=== PATIENT | female | born 1955 | race Caucasian/White ===

== ENCOUNTER 2017-12-10 01:50 | Inpatient (IN) | payer MEDICAID ==
[~2017-12-10] VITALS: Ht 175.3 cm; Wt 95.5 kg
[2017-12-10] MEDS ORDERED: HYDR12.58 PO (03:37)
[2017-12-10] MEDS ORDERED: PALI234D IM (03:37)
[2017-12-10] MEDS ORDERED: GABA-586 PO (03:37)
[2017-12-10] MEDS ORDERED: METF10003 PO (03:37)
[2017-12-10] MEDS ORDERED: OLAN5TAB5 PO (03:37)
[2017-12-10] MEDS ORDERED: TIMO10DR5 OU (03:37)
[2017-12-10] MEDS ORDERED: ACET325T9 PO (03:37)
[2017-12-10] MEDS ORDERED: LOPE2TAB27 PO (03:37)
[2017-12-10] MEDS ORDERED: MAGN2400 PO (03:37)
[2017-12-10] MEDS ORDERED: HALO100A2 IM (03:37)
[2017-12-10] MEDS ORDERED: MAG355OR12 PO (03:37)
[2017-12-10] MEDS ORDERED: POTA10TA10 PO (03:37)
[2017-12-10] MEDS ORDERED: ERGO500027 PO (03:37)
[2017-12-10] MEDS ORDERED: FERR325T14 PO (03:37)
[2017-12-10] MEDS ORDERED: SOLI5TAB2 PO (03:37)
[2017-12-10] MEDS ORDERED: BISM262O17 PO (03:37)
[2017-12-10] MEDS ORDERED: HYDR-2758 PO (03:37)
[2017-12-10] MEDS ORDERED: BENZ1TAB5 PO (03:38)
[2017-12-10] MEDS ORDERED: AMLO5TAB2 PO (03:38)
[2017-12-10] MEDS ORDERED: ATOR10TA60 PO (03:38)
[2017-12-10] MEDS ORDERED: SITA100T PO (03:38)
[2017-12-10 04:35] VITALS: BP 154/84
[2017-12-10] MEDS ORDERED: ACETAMINOPHEN 325 MG TABLET PO PRN ×2 (05:00→05:30)
[2017-12-10] MEDS ORDERED: METHYL SALICYLATE/MENTHOL TOPICAL OINTMENT 29GM TUBE. TP PRN (05:00)
[2017-12-10] MEDS ORDERED: MAGNESIUM HYDROXIDE 2,400 MG/30 ML ORAL.SUSP. PO PRN ×2 (05:00→05:30)
[2017-12-10] MEDS ORDERED: MAG HYDROX/AL HYDROX/SIMETH 30 ML ORAL.SUSP PO PRN ×2 (05:00→05:30)
[2017-12-10] MEDS ORDERED: BISMUTH SUBSALICYLATE 262 MG/15 ML ORAL.SUSP 236ML BOTTLE. PO PRN (05:30)
[2017-12-10] MEDS ORDERED: LOPERAMIDE 2 MG CAPSULE PO PRN (05:30)
[2017-12-10] MEDS: LINAGLIPTIN 5 MG TABLET PO SCH ×2 (06:00→06:55)
[2017-12-10] MEDS: TIMOLOL 0.5% OPHTH SOLUTION 5ML BOTTLE. OU SCH (09:00)
[2017-12-10] MEDS ORDERED: SOLIFENACIN SUCCINATE 5 MG PO SCH (09:00)
[2017-12-10] MEDS: amLODIPine BESYLATE 5 MG TABLET PO SCH ×2 (10:50→10:54)
[2017-12-10] MEDS: FERROUS SULFATE 325 MG TABLET. PO SCH ×3 (10:50→18:00)
[2017-12-10] MEDS: OXYBUTYNIN CHLORIDE 5 MG TABLET PO SCH ×3 (10:50→21:00)
[2017-12-10] MEDS: GABAPENTIN 300 MG CAPSULE. PO SCH ×2 (10:50→10:53)
[2017-12-10] MEDS: POTASSIUM CHLORIDE 10 MEQ TABLET.ER. PO SCH ×3 (10:50→17:00)
[2017-12-10] MEDS: hydroCHLOROthiazide 25 MG TABLET PO SCH ×2 (10:50→10:54)
[2017-12-10] MEDS: metFORMIN 500 MG TABLET PO SCH ×3 (10:50→17:00)
[2017-12-10] MEDS: BENZTROPINE MESYLATE 1 MG TABLET PO SCH ×2 (10:53→11:28)
[2017-12-10] MEDS: LORazepam 0.5 MG TABLET PO PRN ×3 (12:16→22:56)
[2017-12-10 15:46] LABS: BASO # 0.1 x10^3/uL (0.0-0.2); BASO % 1 % (0-3); EOS # 0.1 x10^3/uL (0.0-0.7); EOS % 1 % (0-3); HEMATOCRIT 40.1 % (36.0-47.0); HEMOGLOBIN 13.3 g/dL (12.0-15.5); LYMPH # 2.2 x10^3/uL (1.0-4.8); LYMPH % 30 % (24-48); MEAN CORPUSCULAR HEMOGLOBIN 28 pg (25-35); MEAN CORPUSCULAR HGB CONC 33 g/dL (31-37); MEAN CORPUSCULAR VOLUME 84 fL (79-100); MONO # 0.8 x10^3/uL (0.0-1.1); MONO % 12 % (0-9); NEUT % 56 % (31-73); PLATELET COUNT 270 x10^3/uL (140-400); RED BLOOD COUNT 4.77 x10^6/uL (3.50-5.40); WHITE BLOOD COUNT 7.2 x10^3/uL (4.0-11.0)
[2017-12-10 15:50] VITALS: BP 107/74
[2017-12-10 16:52] LABS: ALBUMIN 3.7 g/dL (3.4-5.0); ALBUMIN/GLOBULIN RATIO 0.9 (1.0-1.7); CALCIUM 8.9 mg/dL (8.5-10.1); CREATININE 0.8 mg/dL (0.6-1.0); GFR 72.4; MAGNESIUM 1.8 mg/dL (1.8-2.4); TOTAL BILIRUBIN 0.3 mg/dL (0.2-1.0); TOTAL PROTEIN 7.6 g/dL (6.4-8.2)
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
--- NOTE | 2017-12-10 20:29 | PDOC ---
Exam Note: José Miguel Note: Please also refer to the separate dictated note~for this date of service dictated separately.~Patient seen individually. Discussed the patient with Nursing staff reviewed the chart.~Reviewed interim history and current functioning. Reviewed vital signs,~Labs/ Radiology~and current medications noted below. Continue current treatment with the changes noted in the dictated addendum note Assessment: Vital Signs: Vital Signs Date Time Temp Pulse Resp B/P (MAP) Pulse Ox O2 Delivery O2 Flow Rate FiO2 12/10/17 15:50 98.2 86 22 107/74 (85) 97 Labs: Laboratory Tests Test 12/10/17 15:30 12/10/17 16:38 White Blood Count 7.2 x10^3/uL (4.0-11.0) Red Blood Count 4.77 x10^6/uL (3.50-5.40) Hemoglobin 13.3 g/dL (12.0-15.5) Hematocrit 40.1 % (36.0-47.0) Mean Corpuscular Volume 84 fL (79-100) Mean Corpuscular Hemoglobin 28 pg (25-35) Mean Corpuscular Hemoglobin Concent 33 g/dL (31-37) Red Cell Distribution Width 15.0 % (11.5-14.5) H Platelet Count 270 x10^3/uL (140-400) Neutrophils (%) (Auto) 56 % (31-73) Lymphocytes (%) (Auto) 30 % (24-48) Monocytes (%) (Auto) 12 % (0-9) H Eosinophils (%) (Auto) 1 % (0-3) Basophils (%) (Auto) 1 % (0-3) Neutrophils # (Auto) 4.0 x10^3uL (1.8-7.7) Lymphocytes # (Auto) 2.2 x10^3/uL (1.0-4.8) Monocytes # (Auto) 0.8 x10^3/uL (0.0-1.1) Eosinophils # (Auto) 0.1 x10^3/uL (0.0-0.7) Basophils # (Auto) 0.1 x10^3/uL (0.0-0.2) Sodium Level 143 mmol/L (136-145) Potassium Level 4.0 mmol/L (3.5-5.1) Chloride Level 107 mmol/L (98-107) Carbon Dioxide Level 26 mmol/L (21-32) Anion Gap 10 (6-14) Blood Urea Nitrogen 16 mg/dL (7-20) Creatinine 0.8 mg/dL (0.6-1.0) Estimated GFR (Cockcroft-Gault) 72.4 BUN/Creatinine Ratio 20 (6-20) Glucose Level 97 mg/dL (70-99) Calcium Level 8.9 mg/dL (8.5-10.1) Magnesium Level 1.8 mg/dL (1.8-2.4) Total Bilirubin 0.3 mg/dL (0.2-1.0) Aspartate Amino Transferase (AST) 12 U/L (15-37) L Alanine Aminotransferase (ALT) 21 U/L (14-59) Alkaline Phosphatase 66 U/L (46-116) Total Protein 7.6 g/dL (6.4-8.2) Albumin 3.7 g/dL (3.4-5.0) Albumin/Globulin Ratio 0.9 (1.0-1.7) L Glucose (Fingerstick) 105 mg/dL (70-99) H Current Medications: Meds: Current Medications Acetaminophen (Tylenol) 650 mg PRN Q6HRS PRN PO PAIN / TEMP; Start 12/10/17 at 05:00 Multi-Ingredient Ointment (Analgesic [place]) 1 van PRN QID PRN TP MUSCLE PAIN; Start 12/10/17 at 05:00 Al Hydroxide/Mg Hydroxide (Mylanta Plus Xs) 15 ml PRN AFTMEALHC PRN PO DYSPEPSIA; Start 12/10/17 at 05:00 Magnesium Hydroxide (Milk Of Magnesia) 2,400 mg PRN QHS PRN PO CONSTIPATION; Start 12/10/17 at 05:00 Acetaminophen (Tylenol) 650 mg PRN Q4HRS PRN PO PAIN / TEMP; Start 12/10/17 at 05:30 Amlodipine Besylate (Norvasc) 5 mg DAILY PO ; Start 12/10/17 at 09:00 Atorvastatin Calcium (Lipitor) 10 mg QHS PO ; Start 12/10/17 at 21:00 Bismuth Subsalicylate (Pepto-Bismol) 262 mg PRN Q4HRS PRN PO DYSPEPSIA; Start 12/10/17 at 05:30 Ferrous Sulfate (Feosol) 325 mg BIDAFTMEAL PO ; Start 12/10/17 at 09:00 Gabapentin (Neurontin) 300 mg DAILY PO ; Start 12/10/17 at 09:00 Acetaminophen/ Hydrocodone Bitart (Lortab 5/325) 1 tab TID PRN PO PAIN; Start 12/10/17 at 05:30 Al Hydroxide/Mg Hydroxide (Mylanta Plus Xs) 30 ml PRN Q4HRS PRN PO DYSPEPSIA; Start 12/10/17 at 05:30 Timolol Maleate (Timoptic 0.5% Ophth) 1 drop DAILY OU ; Start 12/10/17 at 09:00 Vitamin D (Vitamin D3) 50,000 unit WEEKLY PO ; Start 12/12/17 at 09:00 Hydrochlorothiazide (Hydrodiuril) 25 mg DAILY PO ; Start 12/10/17 at 09:00 Loperamide HCl (Imodium) 2 mg PRN Q2HR PRN PO DIARRHEA; Start 12/10/17 at 05:30 Magnesium Hydroxide (Milk Of Magnesia) 2,400 mg PRN DAILY PRN PO CONSTIPATION; Start 12/10/17 at 05:30 Metformin HCl (Glucophage) 1,000 mg BIDWMEALS PO ; Start 12/10/17 at 08:00 Potassium Chloride (Klor-Con) 10 meq BIDWMEALS PO ; Start 12/10/17 at 08:00 Linagliptin (Tradjenta) 5 mg DAILY06 PO ; Start 12/10/17 at 06:00 Non-Formulary Medication (Solifenacin Succinate (Vesicare)) 5 mg DAILY PO ; Start 12/10/17 at 09:00; Stop 12/10/17 at 09:00; Status DC Oxybutynin Chloride (Ditropan) 5 mg BID PO ; Start 12/10/17 at 09:00 Benztropine Mesylate (Cogentin) 1 mg DAILY PO ; Start 12/10/17 at 11:00 Olanzapine (ZyPREXA ZYDIS) 2.5 mg PRN Q2HR PRN PO PSYCHOSIS Last administered on 12/10/17at 11:04; Start 12/10/17 at 10:45; Stop 12/10/17 at 11:26; Status DC Olanzapine (ZyPREXA ZYDIS) 5 mg PRN Q2HR PRN PO PSYCHOSIS Last administered on 12/10/17at 15:30; Start 12/10/17 at 11:30 Lorazepam (Ativan) 0.5 mg PRN Q2HR PRN PO ANXIETY / AGITATION Last administered on 12/10/17at 16:56; Start 12/10/17 at 11:30 Valproic Acid (Depakene) 500 mg QHS PO ; Start 12/10/17 at 21:00 Active Scripts Active Reported Benztropine Mesylate 1 Mg Tablet 1 Mg PO DAILY Atorvastatin Calcium 10 Mg Tablet 10 Mg PO QHS Amlodipine Besylate 5 Mg Tablet 5 Mg PO DAILY Januvia (Sitagliptin Phosphate) 100 Mg Tablet 100 Mg PO DAILY06 Potassium Chloride 10 Meq Tablet.er 10 Meq PO BID Metformin Hcl 1,000 Mg Tablet 1,000 Mg PO BID Hydrocodone-Apap 5-325 (Hydrocodone Bit/Acetaminophen) 1 Each Tablet 1 Tab PO TID PRN Hydrochlorothiazide Tablet (Hydrochlorothiazide) 12.5 Mg Tablet 25 Mg PO DAILY Gabapentin 300 Mg Capsule 300 Mg PO DAILY Ferrous Sulfate 325 Mg Tablet 325 Mg PO BID Vitamin D2 (Ergocalciferol (Vitamin D2)) 50,000 Unit Capsule 50,000 Unit PO QFR Vesicare (Solifenacin Succinate) 5 Mg Tablet 5 Mg PO DAILY Timoptic (Timolol Maleate) 10 Ml Drops 1 Ml OU DAILY Milk Of Magnesia (Magnesium Hydroxide) 2,400 Mg/10 Ml Oral.susp 2,400 Mg PO PRN DAILY PRN Maalox Maximum Strength Susp (Mag Hydrox/Al Hydrox/Simeth) 355 Ml Oral.susp 30 Ml PO PRN Q4HRS PRN Loperamide (Loperamide Hcl) 2 Mg Tablet 2 Mg PO PRN Q2HR PRN Bismatrol (Bismuth Subsalicylate) 262 Mg/15 Ml Oral.susp 262 Mg PO PRN Q4HRS PRN Tylenol (Acetaminophen) 325 Mg Tablet 650 Mg PO PRN Q4HRS PRN Zyprexa Zydis (Olanzapine) 5 Mg Tab.rapdis 2.5 Mg PO PRN Q2HR PRN Haldol Decanoate 100 (Haloperidol Decanoate) 100 Mg/1 Ml Ampul 50 Mg IM [id number] Invega Sustenna (Paliperidone Palmitate) 234 Mg/1.5 Ml Disp.syrin 234 Mg IM QMONTH I have reviewed the current psychotropics carefully including drug interactions. Risk benefit ratio favors no change other than as noted in my dictated progress note. Diagnosis: Problems: (1) Anxiety disorder (2) Bipolar affective, mixed, sev w/ psych (3) Dementia in Alzheimer's disease with delusions (4) Dementia in Alzheimer's disease with depression (5) Dementia, vascular, with delusions (6) Impulse control disorder (7) Schizoaffective disorder, chronic condition with acute exacerbation (8) Schizoaffective disorder DOMENIC BRUNSON MD Dec 10, 2017 20:29
[2017-12-10] MEDS: ATORVASTATIN CALCIUM 10 MG TABLET. PO SCH (21:00)
[2017-12-10] MEDS ORDERED: VALPROIC ACID 250 MG CAPSULE. PO SCH (21:00)
[2017-12-10] MEDS: HYDROcodone/APAP 5/325MG 1 TAB TABLET PO PRN (22:57)
[2017-12-11] MEDS: LORazepam 0.5 MG TABLET PO PRN ×2 (03:03→20:14)
[2017-12-11] MEDS: LORazepam 2 MG/ML VIAL IM SCH ×2 (03:15→14:44)
[2017-12-11] MEDS: HALOPERIDOL LACT 5 MG/ML VIAL. IM SCH ×2 (03:30→14:44)
[2017-12-11 04:11] LABS: HEMOGLOBIN A1C 6.3 % (4.8-5.6)
[2017-12-11 05:09] LABS: T3 TOTAL 90 ng/dL (71-180)
[2017-12-11] MEDS: LINAGLIPTIN 5 MG TABLET PO SCH (05:16)
[2017-12-11 06:20] VITALS: BP 155/87
[2017-12-11] MEDS: metFORMIN 500 MG TABLET PO SCH ×2 (10:56→17:20)
[2017-12-11] MEDS: amLODIPine BESYLATE 5 MG TABLET PO SCH (10:56)
[2017-12-11] MEDS: POTASSIUM CHLORIDE 10 MEQ TABLET.ER. PO SCH ×2 (10:56→17:20)
[2017-12-11] MEDS: BENZTROPINE MESYLATE 1 MG TABLET PO SCH (10:56)
[2017-12-11] MEDS: GABAPENTIN 300 MG CAPSULE. PO SCH (10:56)
[2017-12-11] MEDS: FERROUS SULFATE 325 MG TABLET. PO SCH ×2 (10:56→17:20)
[2017-12-11] MEDS: hydroCHLOROthiazide 25 MG TABLET PO SCH (10:57)
[2017-12-11] MEDS: TIMOLOL 0.5% OPHTH SOLUTION 5ML BOTTLE. OU SCH (10:58)
[2017-12-11] MEDS: OXYBUTYNIN CHLORIDE 5 MG TABLET PO SCH ×4 (10:58→21:39)
[2017-12-11 11:57] LABS: BACTERIA,URINE FEW /HPF (0-FEW); BILIRUBIN,URINE NEG (NEG); CLARITY,URINE CLOUDY; COLOR,URINE YELLOW; GLUCOSE,URINE NEG (NEG); NITRITE,URINE NEG (NEG); RBC,URINE 0 /HPF (0-2); SQUAMOUS EPITHELIAL CELL,UR OCC /LPF; UROBILINOGEN,URINE 0.2 mg/dL (0.2 mg/dL); WBC,URINE >40 /HPF (0-4)
[2017-12-11 11:58] LABS: HYALINE CASTS, URINE FEW /HPF
[2017-12-11 14:40] LABS: THYROID STIM HORMONE (TSH) 1.214 uIU/mL (0.358-3.740)
[2017-12-11 16:26] VITALS: BP 87/57
[2017-12-11] MEDS: ATORVASTATIN CALCIUM 10 MG TABLET. PO SCH ×3 (19:41→21:39)
[2017-12-11] MEDS: VALPROATE ACID 250 MG/5 ML ORAL SOLUTION PO SCH ×2 (19:42→21:25)
--- NOTE | 2017-12-11 21:13 | PDOC ---
Exam Note: José Miguel Note: Please also refer to the separate dictated note~for this date of service dictated separately.~Patient seen individually. Discussed the patient with Nursing staff reviewed the chart.~Reviewed interim history and current functioning. Reviewed vital signs,~Labs/ Radiology~and current medications noted below. Continue current treatment with the changes noted in the dictated addendum note Assessment: Vital Signs: Vital Signs Date Time Temp Pulse Resp B/P (MAP) Pulse Ox O2 Delivery O2 Flow Rate FiO2 12/11/17 16:26 97.1 100 16 87/57 (67) 91 12/10/17 22:57 Room Air I&O Intake and Output 12/11/17 07:00 Intake Total 1900 ml Balance 1900 ml Intake Oral 1900 ml # Voids 3 # Bowel Movements 1 Labs: Laboratory Tests Test 12/11/17 07:07 12/11/17 11:30 Glucose (Fingerstick) 147 mg/dL (70-99) H Urine Collection Type Unknown Urine Color Yellow Urine Clarity Cloudy Urine pH 5.0 Urine Specific [place] 1.025 Urine Protein 30 mg/dl (NEG-TRACE) Urine Glucose (UA) Neg mg/dL (NEG) Urine Ketones (Stick) 15 mg/dL (NEG) Urine Blood Neg (NEG) Urine Nitrite Neg (NEG) Urine Bilirubin Neg (NEG) Urine Urobilinogen Dipstick 0.2 mg/dL (0.2 mg/dL) Urine Leukocyte Esterase Small (NEG) Urine RBC 0 /HPF (0-2) Urine WBC >40 /HPF (0-4) Urine Squamous Epithelial Cells Occ /LPF Urine Transitional Epithelial Cells Occ /LPF Urine Bacteria Few /HPF (0-FEW) Urine Hyaline Casts Few /HPF Urine Mucus Mod /LPF Current Medications: Meds: Current Medications Acetaminophen (Tylenol) 650 mg PRN Q6HRS PRN PO PAIN / TEMP; Start 12/10/17 at 05:00; Stop 12/11/17 at 16:16; Status DC Multi-Ingredient Ointment (Analgesic [place]) 1 van PRN QID PRN TP MUSCLE PAIN; Start 12/10/17 at 05:00 Al Hydroxide/Mg Hydroxide (Mylanta Plus Xs) 15 ml PRN AFTMEALHC PRN PO DYSPEPSIA; Start 12/10/17 at 05:00; Stop 4/26/18 at 16:16; Status DC Magnesium Hydroxide (Milk Of Magnesia) 2,400 mg PRN QHS PRN PO CONSTIPATION; Start 12/10/17 at 05:00; Stop 12/11/17 at 16:16; Status DC Acetaminophen (Tylenol) 650 mg PRN Q4HRS PRN PO PAIN / TEMP; Start 12/10/17 at 05:30 Amlodipine Besylate (Norvasc) 5 mg DAILY PO Last administered on 12/11/17 10: 56; Start 12/10/17 at 09:00 Atorvastatin Calcium (Lipitor) 10 mg QHS PO Last administered on 12/11/17at 19: 41; Start 12/10/17 at 21:00 Bismuth Subsalicylate (Pepto-Bismol) 262 mg PRN Q4HRS PRN PO DYSPEPSIA; Start 12/10/17 at 05:30 Ferrous Sulfate (Feosol) 325 mg BIDAFTMEAL PO Last administered on 12/11/17 17 :20; Start 12/10/17 at 09:00 Gabapentin (Neurontin) 300 mg DAILY PO Last administered on 12/11/17 10:56; Start 12/10/17 at 09:00 Acetaminophen/ Hydrocodone Bitart (Lortab 5/325) 1 tab TID PRN PO PAIN Last administered on 12/10/17 22:57; Start 12/10/17 at 05:30 Al Hydroxide/Mg Hydroxide (Mylanta Plus Xs) 30 ml PRN Q4HRS PRN PO DYSPEPSIA; Start 12/10/17 at 05:30 Timolol Maleate (Timoptic 0.5% [facility]) 1 drop DAILY OU Last administered on 12/11at 10:58; Start 12/10/17 at 09:00 Vitamin D (Vitamin D3) 50,000 unit WEEKLY PO ; Start 12/12/17 at 09:00 Hydrochlorothiazide (Hydrodiuril) 25 mg DAILY PO Last administered on at 10:57; Start 12/10/17 at 09:00 Loperamide HCl (Imodium) 2 mg PRN Q2HR PRN PO DIARRHEA; Start 12/10/17 at 05:30 Magnesium Hydroxide (Milk Of Magnesia) 2,400 mg PRN DAILY PRN PO CONSTIPATION; Start 12/10/17 at 05:30 Metformin HCl (Glucophage) 1,000 mg BIDWMEALS PO Last administered on 17:20; Start 12/10/17 at 08:00 Potassium Chloride (Klor-Con) 10 meq BIDWMEALS PO Last administered on at 17:20; Start 12/10/17 at 08:00 Linagliptin (Tradjenta) 5 mg DAILY06 PO Last administered on 12/11/17 05:16; Start 12/10/17 at 06:00 Non-Formulary Medication (Solifenacin Succinate (Vesicare)) 5 mg DAILY PO ; Start 12/10/17 at 09:00; Stop 12/10/17 at 09:00; Status DC Oxybutynin Chloride (Ditropan) 5 mg BID PO Last administered on 12/11/17at 19:41 ; Start 12/10/17 at 09:00 Benztropine Mesylate (Cogentin) 1 mg DAILY PO Last administered on 12/11/17at 10 :56; Start 12/10/17 at 11:00 Olanzapine (ZyPREXA ZYDIS) 2.5 mg PRN Q2HR PRN PO PSYCHOSIS Last administered on 12/10/17 11:04; Start 12/10/17 at 10:45; Stop 12/10/17 at 11:26; Status DC Olanzapine (ZyPREXA ZYDIS) 5 mg PRN Q2HR PRN PO PSYCHOSIS Last administered on 12/11/17at 20:14; Start 12/10/17 at 11:30 Lorazepam (Ativan) 0.5 mg PRN Q2HR PRN PO ANXIETY / AGITATION Last administered on 12/11/17at 20:14; Start 12/10/17 at 11:30 Valproic Acid (Depakene) 500 mg QHS PO ; Start 12/10/17 at 21:00; Stop 12/11/17 at 18:46; Status DC Haloperidol Lactate (Haldol) 5 mg DAILY IM Last administered on 12/11/17at 14:44 ; Start 12/11/17 at 03:15 Lorazepam (Ativan) 1 mg DAILY IM Last administered on 12/11/17at 14:44; Start at 03:15 Valproic Acid (Depakene) 500 mg QHS PO Last administered on 4/26/18at 19:42; Start 12/11/17 at 21:00 Active Scripts Active Reported Benztropine Mesylate 1 Mg Tablet 1 Mg PO DAILY Atorvastatin Calcium 10 Mg Tablet 10 Mg PO QHS Amlodipine Besylate 5 Mg Tablet 5 Mg PO DAILY Januvia (Sitagliptin Phosphate) 100 Mg Tablet 100 Mg PO DAILY06 Potassium Chloride 10 Meq Tablet.er 10 Meq PO BID Metformin Hcl 1,000 Mg Tablet 1,000 Mg PO BID Hydrocodone-Apap 5-325 (Hydrocodone Bit/Acetaminophen) 1 Each Tablet 1 Tab PO TID PRN Hydrochlorothiazide Tablet (Hydrochlorothiazide) 12.5 Mg Tablet 25 Mg PO DAILY Gabapentin 300 Mg Capsule 300 Mg PO DAILY Ferrous Sulfate 325 Mg Tablet 325 Mg PO BID Vitamin D2 (Ergocalciferol (Vitamin D2)) 50,000 Unit Capsule 50,000 Unit PO QFR Vesicare (Solifenacin Succinate) 5 Mg Tablet 5 Mg PO DAILY Timoptic (Timolol Maleate) 10 Ml Drops 1 Ml OU DAILY Milk Of Magnesia (Magnesium Hydroxide) 2,400 Mg/10 Ml Oral.susp 2,400 Mg PO PRN DAILY PRN Maalox Maximum Strength Susp (Mag Hydrox/Al Hydrox/Simeth) 355 Ml Oral.susp 30 Ml PO PRN Q4HRS PRN Loperamide (Loperamide Hcl) 2 Mg Tablet 2 Mg PO PRN Q2HR PRN Bismatrol (Bismuth Subsalicylate) 262 Mg/15 Ml Oral.susp 262 Mg PO PRN Q4HRS PRN Tylenol (Acetaminophen) 325 Mg Tablet 650 Mg PO PRN Q4HRS PRN Zyprexa Zydis (Olanzapine) 5 Mg Tab.rapdis 2.5 Mg PO PRN Q2HR PRN Haldol Decanoate 100 (Haloperidol Decanoate) 100 Mg/1 Ml Ampul 50 Mg IM [id number] Invega Sustenna (Paliperidone Palmitate) 234 Mg/1.5 Ml Disp.syrin 234 Mg IM QMONTH I have reviewed the current psychotropics carefully including drug interactions. Risk benefit ratio favors no change other than as noted in my dictated progress note. Diagnosis: Problems: (1) Anxiety disorder (2) Bipolar affective, mixed, sev w/ psych (3) Dementia in Alzheimer's disease with delusions (4) Dementia in Alzheimer's disease with depression (5) Dementia, vascular, with delusions (6) Impulse control disorder (7) Schizoaffective disorder, chronic condition with acute exacerbation (8) Schizoaffective disorder DOMENIC BRUNSON MD Dec 11, 2017 21:13
[2017-12-12] MEDS: LINAGLIPTIN 5 MG TABLET PO SCH (06:12)
[2017-12-12] MEDS: TIMOLOL 0.5% OPHTH SOLUTION 5ML BOTTLE. OU SCH (09:00)
[2017-12-12] MEDS: amLODIPine BESYLATE 5 MG TABLET PO SCH ×2 (09:00→10:12)
[2017-12-12] MEDS: GABAPENTIN 300 MG CAPSULE. PO SCH (10:12)
[2017-12-12] MEDS: metFORMIN 500 MG TABLET PO SCH ×2 (10:13→18:13)
[2017-12-12] MEDS: BENZTROPINE MESYLATE 1 MG TABLET PO SCH (10:13)
[2017-12-12] MEDS: hydroCHLOROthiazide 25 MG TABLET PO SCH (10:13)
[2017-12-12] MEDS: POTASSIUM CHLORIDE 10 MEQ TABLET.ER. PO SCH ×2 (10:13→18:14)
[2017-12-12] MEDS: OXYBUTYNIN CHLORIDE 5 MG TABLET PO SCH ×2 (10:13→19:15)
[2017-12-12] MEDS: FERROUS SULFATE 325 MG TABLET. PO SCH ×2 (10:13→18:15)
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
[2017-12-12 16:29] VITALS: BP 150/58
[2017-12-12] MEDS: LORazepam 2 MG/ML VIAL IM SCH ×2 (18:00→21:12)
[2017-12-12] MEDS: HALOPERIDOL LACT 5 MG/ML VIAL. IM SCH ×2 (18:00→19:42)
[2017-12-12] MEDS: CHOLECALCIFEROL (VITAMIN D3) 50,000 UNIT CAPSULE PO SCH (18:14)
[2017-12-12] MEDS: ATORVASTATIN CALCIUM 10 MG TABLET. PO SCH (19:15)
[2017-12-12] MEDS: VALPROATE ACID 250 MG/5 ML ORAL SOLUTION PO SCH (19:15)
[2017-12-12] MEDS ORDERED: traZODone 100 MG TABLET. PO PRN (20:00)
[2017-12-12] MEDS: traZODone 100 MG TABLET. PO SCH (20:36)
--- NOTE | 2017-12-12 23:00 | PDOC ---
Exam Note: José Miguel Note: Please also refer to the separate dictated note~for this date of service dictated separately.~Patient seen individually. Discussed the patient with Nursing staff reviewed the chart.~Reviewed interim history and current functioning. Reviewed vital signs,~Labs/ Radiology~and current medications noted below. Continue current treatment with the changes noted in the dictated addendum note Assessment: Vital Signs: Vital Signs Date Time Temp Pulse Resp B/P (MAP) Pulse Ox O2 Delivery O2 Flow Rate FiO2 12/12/17 16:29 97.8 106 18 150/58 (88) 91 12/10/17 22:57 Room Air I&O Intake and Output 12/12/17 07:00 Intake Total 720 ml Balance 720 ml Intake Oral 720 ml # Bowel Movements 1 Labs: Laboratory Tests Test 12/12/17 07:46 Glucose (Fingerstick) 125 mg/dL (70-99) H Current Medications: Meds: Current Medications Acetaminophen (Tylenol) 650 mg PRN Q6HRS PRN PO PAIN / TEMP; Start 12/10/17 at 05:00; Stop 12/11/17 at 16:16; Status DC Multi-Ingredient Ointment (Analgesic [place]) 1 van PRN QID PRN TP MUSCLE PAIN; Start 12/10/17 at 05:00 Al Hydroxide/Mg Hydroxide (Mylanta Plus Xs) 15 ml PRN AFTMEALHC PRN PO DYSPEPSIA; Start 12/10/17 at 05:00; Stop 12/11/17 at 16:16; Status DC Magnesium Hydroxide (Milk Of Magnesia) 2,400 mg PRN QHS PRN PO CONSTIPATION; Start 12/10/17 at 05:00; Stop 12/11/17 at 16:16; Status DC Acetaminophen (Tylenol) 650 mg PRN Q4HRS PRN PO PAIN / TEMP; Start 12/10/17 at 05:30 Amlodipine Besylate (Norvasc) 5 mg DAILY PO Last administered on 12/11/17at 10: 56; Start 12/10/17 at 09:00 Atorvastatin Calcium (Lipitor) 10 mg QHS PO Last administered on 12/12/17at 19: 15; Start 12/10/17 at 21:00 Bismuth Subsalicylate (Pepto-Bismol) 262 mg PRN Q4HRS PRN PO DYSPEPSIA; Start 12/10/17 at 05:30 Ferrous Sulfate (Feosol) 325 mg BIDAFTMEAL PO Last administered on 12/12/17 18 :15; Start 12/10/17 at 09:00 Gabapentin (Neurontin) 300 mg DAILY PO Last administered on 12/12/17 10:12; Start 12/10/17 at 09:00 Acetaminophen/ Hydrocodone Bitart (Lortab 5/325) 1 tab TID PRN PO PAIN Last administered on 12/10/17 22:57; Start 12/10/17 at 05:30 Al Hydroxide/Mg Hydroxide (Mylanta Plus Xs) 30 ml PRN Q4HRS PRN PO DYSPEPSIA; Start 12/10/17 at 05:30 Timolol Maleate (Timoptic 0.5% [facility]) 1 drop DAILY OU Last administered on 12/11 10:58; Start 12/10/17 at 09:00 Vitamin D (Vitamin D3) 50,000 unit WEEKLY PO Last administered on 12/12/17 18: 14; Start 12/12/17 at 09:00 Hydrochlorothiazide (Hydrodiuril) 25 mg DAILY PO Last administered on 10:13; Start 12/10/17 at 09:00 Loperamide HCl (Imodium) 2 mg PRN Q2HR PRN PO DIARRHEA; Start 12/10/17 at 05:30 Magnesium Hydroxide (Milk Of Magnesia) 2,400 mg PRN DAILY PRN PO CONSTIPATION; Start 12/10/17 at 05:30 Metformin HCl (Glucophage) 1,000 mg BIDWMEALS PO Last administered on 18:13; Start 12/10/17 at 08:00 Potassium Chloride (Klor-Con) 10 meq BIDWMEALS PO Last administered on 18:14; Start 12/10/17 at 08:00 Linagliptin (Tradjenta) 5 mg DAILY06 PO Last administered on 12/12/17 06:12; Start 12/10/17 at 06:00 Non-Formulary Medication (Solifenacin Succinate (Vesicare)) 5 mg DAILY PO ; Start 12/10/17 at 09:00; Stop 12/10/17 at 09:00; Status DC Oxybutynin Chloride (Ditropan) 5 mg BID PO Last administered on 12/12/17 19:15 ; Start 12/10/17 at 09:00 Benztropine Mesylate (Cogentin) 1 mg DAILY PO Last administered on 12/12/17 10 :13; Start 12/10/17 at 11:00 Olanzapine (ZyPREXA ZYDIS) 2.5 mg PRN Q2HR PRN PO PSYCHOSIS Last administered on 12/10/17 11:04; Start 12/10/17 at 10:45; Stop 12/10/17 at 11:26; Status DC Olanzapine (ZyPREXA ZYDIS) 5 mg PRN Q2HR PRN PO PSYCHOSIS Last administered on 12/11/17 20:14; Start 12/10/17 at 11:30 Lorazepam (Ativan) 0.5 mg PRN Q2HR PRN PO ANXIETY / AGITATION Last administered on 12/11/17at 20:14; Start 12/10/17 at 11:30 Valproic Acid (Depakene) 500 mg QHS PO ; Start 12/10/17 at 21:00; Stop 12/11/17 at 18:46; Status DC Haloperidol Lactate (Haldol) 5 mg DAILY IM Last administered on 12/12/17at 19:42 ; Start 12/11/17 at 03:15 Lorazepam (Ativan) 1 mg DAILY IM Last administered on 12/12/17 21:12; Start at 03:15 Valproic Acid (Depakene) 500 mg QHS PO Last administered on 12/12/17 19:15; Start 12/11/17 at 21:00 Trazodone HCl (Desyrel) 100 mg QHS PO Last administered on 12/12/17at 20:36; Start 12/12/17 at 21:00 Trazodone HCl (Desyrel) 100 mg PRN QHS PRN PO INSOMNIA; Start 12/12/17 at 20:00 Active Scripts Active Reported Benztropine Mesylate 1 Mg Tablet 1 Mg PO DAILY Atorvastatin Calcium 10 Mg Tablet 10 Mg PO QHS Amlodipine Besylate 5 Mg Tablet 5 Mg PO DAILY Januvia (Sitagliptin Phosphate) 100 Mg Tablet 100 Mg PO DAILY06 Potassium Chloride 10 Meq Tablet.er 10 Meq PO BID Metformin Hcl 1,000 Mg Tablet 1,000 Mg PO BID Hydrocodone-Apap 5-325 (Hydrocodone Bit/Acetaminophen) 1 Each Tablet 1 Tab PO TID PRN Hydrochlorothiazide Tablet (Hydrochlorothiazide) 12.5 Mg Tablet 25 Mg PO DAILY Gabapentin 300 Mg Capsule 300 Mg PO DAILY Ferrous Sulfate 325 Mg Tablet 325 Mg PO BID Vitamin D2 (Ergocalciferol (Vitamin D2)) 50,000 Unit Capsule 50,000 Unit PO QFR Vesicare (Solifenacin Succinate) 5 Mg Tablet 5 Mg PO DAILY Timoptic (Timolol Maleate) 10 Ml Drops 1 Ml OU DAILY Milk Of Magnesia (Magnesium Hydroxide) 2,400 Mg/10 Ml Oral.susp 2,400 Mg PO PRN DAILY PRN Maalox Maximum Strength Susp (Mag Hydrox/Al Hydrox/Simeth) 355 Ml Oral.susp 30 Ml PO PRN Q4HRS PRN Loperamide (Loperamide Hcl) 2 Mg Tablet 2 Mg PO PRN Q2HR PRN Bismatrol (Bismuth Subsalicylate) 262 Mg/15 Ml Oral.susp 262 Mg PO PRN Q4HRS PRN Tylenol (Acetaminophen) 325 Mg Tablet 650 Mg PO PRN Q4HRS PRN Zyprexa Zydis (Olanzapine) 5 Mg Tab.rapdis 2.5 Mg PO PRN Q2HR PRN Haldol Decanoate 100 (Haloperidol Decanoate) 100 Mg/1 Ml Ampul 50 Mg IM [id number] Invega Sustenna (Paliperidone Palmitate) 234 Mg/1.5 Ml Disp.syrin 234 Mg IM QMONTH I have reviewed the current psychotropics carefully including drug interactions. Risk benefit ratio favors no change other than as noted in my dictated progress note. Diagnosis: Problems: (1) Anxiety disorder (2) Bipolar affective, mixed, sev w/ psych (3) Dementia in Alzheimer's disease with delusions (4) Dementia in Alzheimer's disease with depression (5) Dementia, vascular, with delusions (6) Impulse control disorder (7) Schizoaffective disorder, chronic condition with acute exacerbation (8) Schizoaffective disorder DOMENIC BRUNSON MD Dec 12, 2017 23:00
[2017-12-13 06:35] VITALS: BP 121/69
[2017-12-13] MEDS: LINAGLIPTIN 5 MG TABLET PO SCH (06:44)
[2017-12-13] MEDS: TIMOLOL 0.5% OPHTH SOLUTION 5ML BOTTLE. OU SCH (09:00)
[2017-12-13] MEDS: GABAPENTIN 300 MG CAPSULE. PO SCH (10:10)
[2017-12-13] MEDS: FERROUS SULFATE 325 MG TABLET. PO SCH ×2 (10:10→17:39)
[2017-12-13] MEDS: OXYBUTYNIN CHLORIDE 5 MG TABLET PO SCH ×2 (10:11→20:48)
[2017-12-13] MEDS: metFORMIN 500 MG TABLET PO SCH ×2 (10:11→17:00)
[2017-12-13] MEDS: POTASSIUM CHLORIDE 10 MEQ TABLET.ER. PO SCH ×2 (10:11→17:00)
[2017-12-13] MEDS: BENZTROPINE MESYLATE 1 MG TABLET PO SCH (10:11)
[2017-12-13] MEDS: hydroCHLOROthiazide 25 MG TABLET PO SCH (10:11)
[2017-12-13] MEDS: amLODIPine BESYLATE 5 MG TABLET PO SCH (10:11)
[2017-12-13] MEDS: HALOPERIDOL 5 MG TABLET PO SCH (10:13)
[2017-12-13 14:10] LABS: BASO # 0.1 x10^3/uL (0.0-0.2); BASO % 1 % (0-3); EOS # 0.1 x10^3/uL (0.0-0.7); EOS % 2 % (0-3); HEMATOCRIT 37.2 % (36.0-47.0); HEMOGLOBIN 12.3 g/dL (12.0-15.5); LYMPH % 33 % (24-48); MEAN CORPUSCULAR HEMOGLOBIN 28 pg (25-35); MEAN CORPUSCULAR HGB CONC 33 g/dL (31-37); MEAN CORPUSCULAR VOLUME 84 fL (79-100); MONO # 0.9 x10^3/uL (0.0-1.1); MONO % 11 % (0-9); NEUT # 4.8 x10^3uL (1.8-7.7); NEUT % 54 % (31-73); PLATELET COUNT 256 x10^3/uL (140-400); RED BLOOD COUNT 4.45 x10^6/uL (3.50-5.40); RED CELL DISTRIBUTION WIDTH 15.2 % (11.5-14.5); WHITE BLOOD COUNT 8.9 x10^3/uL (4.0-11.0)
[2017-12-13 14:25] LABS: ALBUMIN 3.6 g/dL (3.4-5.0); ALBUMIN/GLOBULIN RATIO 1.1 (1.0-1.7); ALK PHOS 74 U/L (46-116); ALT (SGPT) 23 U/L (14-59); ANION GAP 10 (6-14); AST (SGOT) 19 U/L (15-37); BLOOD UREA NITROGEN 20 mg/dL (7-20); BUN/CREATININE RATIO 22 (6-20); CARBON DIOXIDE 29 mmol/L (21-32); CHLORIDE 103 mmol/L (98-107); CREATININE 0.9 mg/dL (0.6-1.0); GFR 63.2; GLUCOSE 89 mg/dL (70-99); POTASSIUM 3.6 mmol/L (3.5-5.1); SODIUM 142 mmol/L (136-145); TOTAL BILIRUBIN 0.3 mg/dL (0.2-1.0)
[2017-12-13 14:26] LABS: VAL ACID 33 mcg/mL (50-100)
[2017-12-13] MEDS: VALPROATE ACID 250 MG/5 ML ORAL SOLUTION PO SCH ×2 (16:17→20:48)
[2017-12-13] MEDS: traZODone 100 MG TABLET. PO SCH (20:48)
[2017-12-13] MEDS: ATORVASTATIN CALCIUM 10 MG TABLET. PO SCH (20:48)
--- NOTE | 2017-12-13 21:44 | PN ---
DATE: 12/11/2017 PSYCHIATRIC PROGRESS NOTE This is a late entry for 12/11/2017, covers elements not covered in my initial note of 12/11/2017. SUBJECTIVE: The patient was staffed at a treatment team meeting in the morning, seen individually in the evening and I have got a call around 3 o'clock middle of the night previous night from nursing staff because of the patient's marked agitation, mood lability, psychosis, yelling, screaming. She is grabbing other patients, did not sleep at all at night. On 12/11/2017, she was yelling after lunch, extremely psychotic. At 3 o'clock in the morning, I have started the patient on scheduled Haldol and Ativan. This seems to help somewhat given her noncompliance with oral medications and these were ineffective. Nursing staff are making concerted efforts to get her Depakene into her as well for mood stabilization. REVIEW OF SYSTEMS: No CV, , pulmonary, eye, ENT system symptoms on review. Reliability poor. MENTAL STATUS EXAM: Oriented to herself. Insight, judgment, recent and remote memory, attention, concentration, fund of knowledge poor, consistent with her diagnoses. LABORATORY DATA: Schizoaffective disorder, bipolar type, mixed with psychotic features; psychotic disorder, unspecified; major neurocognitive disorder, Alzheimer, vascular with delusion, depression. Rest unchanged. PLAN: Continue psychotropics. Encourage compliance. Adjust Depakote post labs level. MAN Nixon BRUNSON MD DR: LACEY/mamadou JOB#: [id number] / [id number]
--- NOTE | 2017-12-13 22:31 | PDOC ---
Exam Note: José Miguel Note: Please also refer to the separate dictated note~for this date of service dictated separately.~Patient seen individually. Discussed the patient with Nursing staff reviewed the chart.~Reviewed interim history and current functioning. Reviewed vital signs,~Labs/ Radiology~and current medications noted below. Continue current treatment with the changes noted in the dictated addendum note Assessment: Vital Signs: Vital Signs Date Time Temp Pulse Resp B/P (MAP) Pulse Ox O2 Delivery O2 Flow Rate FiO2 12/13/17 10:11 88 121/69 12/13/17 06:35 98.8 20 94 12/10/17 22:57 Room Air I&O Intake and Output 12/13/17 07:00 Intake Total 600 ml Balance 600 ml Intake Oral 600 ml Labs: Laboratory Tests Test 12/13/17 14:02 White Blood Count 8.9 x10^3/uL (4.0-11.0) Red Blood Count 4.45 x10^6/uL (3.50-5.40) Hemoglobin 12.3 g/dL (12.0-15.5) Hematocrit 37.2 % (36.0-47.0) Mean Corpuscular Volume 84 fL (79-100) Mean Corpuscular Hemoglobin 28 pg (25-35) Mean Corpuscular Hemoglobin Concent 33 g/dL (31-37) Red Cell Distribution Width 15.2 % (11.5-14.5) H Platelet Count 256 x10^3/uL (140-400) Neutrophils (%) (Auto) 54 % (31-73) Lymphocytes (%) (Auto) 33 % (24-48) Monocytes (%) (Auto) 11 % (0-9) H Eosinophils (%) (Auto) 2 % (0-3) Basophils (%) (Auto) 1 % (0-3) Neutrophils # (Auto) 4.8 x10^3uL (1.8-7.7) Lymphocytes # (Auto) 3.0 x10^3/uL (1.0-4.8) Monocytes # (Auto) 0.9 x10^3/uL (0.0-1.1) Eosinophils # (Auto) 0.1 x10^3/uL (0.0-0.7) Basophils # (Auto) 0.1 x10^3/uL (0.0-0.2) Sodium Level 142 mmol/L (136-145) Potassium Level 3.6 mmol/L (3.5-5.1) Chloride Level 103 mmol/L (98-107) Carbon Dioxide Level 29 mmol/L (21-32) Anion Gap 10 (6-14) Blood Urea Nitrogen 20 mg/dL (7-20) Creatinine 0.9 mg/dL (0.6-1.0) Estimated GFR (Cockcroft-Gault) 63.2 BUN/Creatinine Ratio 22 (6-20) H Glucose Level 89 mg/dL (70-99) Calcium Level 9.0 mg/dL (8.5-10.1) Total Bilirubin 0.3 mg/dL (0.2-1.0) Aspartate Amino Transferase (AST) 19 U/L (15-37) Alanine Aminotransferase (ALT) 23 U/L (14-59) Alkaline Phosphatase 74 U/L (46-116) Total Protein 7.0 g/dL (6.4-8.2) Albumin 3.6 g/dL (3.4-5.0) Albumin/Globulin Ratio 1.1 (1.0-1.7) Valproic Acid Level 33 mcg/mL (50-100) L Valproic Acid Last Dose Date Pending Valproic Acid Last Dose Time Pending Current Medications: Meds: Current Medications Acetaminophen (Tylenol) 650 mg PRN Q6HRS PRN PO PAIN / TEMP; Start 12/10/17 at 05:00; Stop 12/11/17 at 16:16; Status DC Multi-Ingredient Ointment (Analgesic [place]) 1 van PRN QID PRN TP MUSCLE PAIN; Start 12/10/17 at 05:00 Al Hydroxide/Mg Hydroxide (Mylanta Plus Xs) 15 ml PRN AFTMEALHC PRN PO DYSPEPSIA; Start 12/10/17 at 05:00; Stop 12/11/17 at 16:16; Status DC Magnesium Hydroxide (Milk Of Magnesia) 2,400 mg PRN QHS PRN PO CONSTIPATION; Start 12/10/17 at 05:00; Stop 12/11/17 at 16:16; Status DC Acetaminophen (Tylenol) 650 mg PRN Q4HRS PRN PO PAIN / TEMP; Start 12/10/17 at 05:30 Amlodipine Besylate (Norvasc) 5 mg DAILY PO Last administered on 12/13/17 10: 11; Start 12/10/17 at 09:00 Atorvastatin Calcium (Lipitor) 10 mg QHS PO Last administered on 12/13/17 20: 48; Start 12/10/17 at 21:00 Bismuth Subsalicylate (Pepto-Bismol) 262 mg PRN Q4HRS PRN PO DYSPEPSIA; Start 12/10/17 at 05:30 Ferrous Sulfate (Feosol) 325 mg BIDAFTMEAL PO Last administered on 12/13/17 10 :10; Start 12/10/17 at 09:00 Gabapentin (Neurontin) 300 mg DAILY PO Last administered on 12/13/17 10:10; Start 12/10/17 at 09:00 Acetaminophen/ Hydrocodone Bitart (Lortab 5/325) 1 tab TID PRN PO PAIN Last administered on 12/10/17 22:57; Start 12/10/17 at 05:30 Al Hydroxide/Mg Hydroxide (Mylanta Plus Xs) 30 ml PRN Q4HRS PRN PO DYSPEPSIA; Start 12/10/17 at 05:30 Timolol Maleate (Timoptic 0.5% [facility]) 1 drop DAILY OU Last administered on 12/11 10:58; Start 12/10/17 at 09:00 Vitamin D (Vitamin D3) 50,000 unit WEEKLY PO Last administered on 12/12/17 18: 14; Start 12/12/17 at 09:00 Hydrochlorothiazide (Hydrodiuril) 25 mg DAILY PO Last administered on 10:11; Start 12/10/17 at 09:00 Loperamide HCl (Imodium) 2 mg PRN Q2HR PRN PO DIARRHEA; Start 12/10/17 at 05:30 Magnesium Hydroxide (Milk Of Magnesia) 2,400 mg PRN DAILY PRN PO CONSTIPATION; Start 12/10/17 at 05:30 Metformin HCl (Glucophage) 1,000 mg BIDWMEALS PO Last administered on 10:11; Start 12/10/17 at 08:00 Potassium Chloride (Klor-Con) 10 meq BIDWMEALS PO Last administered on 10:11; Start 12/10/17 at 08:00 Linagliptin (Tradjenta) 5 mg DAILY06 PO Last administered on 12/13/17at 06:44; Start 12/10/17 at 06:00 Non-Formulary Medication (Solifenacin Succinate (Vesicare)) 5 mg DAILY PO ; Start 12/10/17 at 09:00; Stop 12/10/17 at 09:00; Status DC Oxybutynin Chloride (Ditropan) 5 mg BID PO Last administered on 12/13/17at 20:48 ; Start 12/10/17 at 09:00 Benztropine Mesylate (Cogentin) 1 mg DAILY PO Last administered on 12/13/17 10 :11; Start 12/10/17 at 11:00 Olanzapine (ZyPREXA ZYDIS) 2.5 mg PRN Q2HR PRN PO PSYCHOSIS Last administered on 12/10/17 11:04; Start 12/10/17 at 10:45; Stop 12/10/17 at 11:26; Status DC Olanzapine (ZyPREXA ZYDIS) 5 mg PRN Q2HR PRN PO PSYCHOSIS Last administered on 12/13/17at 11:20; Start 12/10/17 at 11:30 Lorazepam (Ativan) 0.5 mg PRN Q2HR PRN PO ANXIETY / AGITATION Last administered on 12/11/17at 20:14; Start 12/10/17 at 11:30 Valproic Acid (Depakene) 500 mg QHS PO ; Start 12/10/17 at 21:00; Stop 12/11/17 at 18:46; Status DC Haloperidol Lactate (Haldol) 5 mg DAILY IM Last administered on 12/12/17at 19:42 ; Start 12/11/17 at 03:15; Stop 12/13/17 at 05:13; Status DC Lorazepam (Ativan) 1 mg DAILY IM Last administered on 12/12/17at 21:12; Start at 03:15 Valproic Acid (Depakene) 500 mg QHS PO Last administered on 12/12/17at 19:15; Start 12/11/17 at 21:00; Stop 12/13/17 at 15:44; Status DC Trazodone HCl (Desyrel) 100 mg QHS PO Last administered on 12/13/17at 20:48; Start 12/12/17 at 21:00 Trazodone HCl (Desyrel) 100 mg PRN QHS PRN PO INSOMNIA; Start 12/12/17 at 20:00 Haloperidol (Haldol) 10 mg DAILY PO Last administered on 12/13/17at 10:13; Start 12/13/17 at 09:00 Valproic Acid (Depakene) 500 mg BID PO Last administered on 12/13/17at 20:48; Start 12/13/17 at 16:00 Active Scripts Active Reported Benztropine Mesylate 1 Mg Tablet 1 Mg PO DAILY Atorvastatin Calcium 10 Mg Tablet 10 Mg PO QHS Amlodipine Besylate 5 Mg Tablet 5 Mg PO DAILY Januvia (Sitagliptin Phosphate) 100 Mg Tablet 100 Mg PO DAILY06 Potassium Chloride 10 Meq Tablet.er 10 Meq PO BID Metformin Hcl 1,000 Mg Tablet 1,000 Mg PO BID Hydrocodone-Apap 5-325 (Hydrocodone Bit/Acetaminophen) 1 Each Tablet 1 Tab PO TID PRN Hydrochlorothiazide Tablet (Hydrochlorothiazide) 12.5 Mg Tablet 25 Mg PO DAILY Gabapentin 300 Mg Capsule 300 Mg PO DAILY Ferrous Sulfate 325 Mg Tablet 325 Mg PO BID Vitamin D2 (Ergocalciferol (Vitamin D2)) 50,000 Unit Capsule 50,000 Unit PO QFR Vesicare (Solifenacin Succinate) 5 Mg Tablet 5 Mg PO DAILY Timoptic (Timolol Maleate) 10 Ml Drops 1 Ml OU DAILY Milk Of Magnesia (Magnesium Hydroxide) 2,400 Mg/10 Ml Oral.susp 2,400 Mg PO PRN DAILY PRN Maalox Maximum Strength Susp (Mag Hydrox/Al Hydrox/Simeth) 355 Ml Oral.susp 30 Ml PO PRN Q4HRS PRN Loperamide (Loperamide Hcl) 2 Mg Tablet 2 Mg PO PRN Q2HR PRN Bismatrol (Bismuth Subsalicylate) 262 Mg/15 Ml Oral.susp 262 Mg PO PRN Q4HRS PRN Tylenol (Acetaminophen) 325 Mg Tablet 650 Mg PO PRN Q4HRS PRN Zyprexa Zydis (Olanzapine) 5 Mg Tab.rapdis 2.5 Mg PO PRN Q2HR PRN Haldol Decanoate 100 (Haloperidol Decanoate) 100 Mg/1 Ml Ampul 50 Mg IM [id number] Invega Sustenna (Paliperidone Palmitate) 234 Mg/1.5 Ml Disp.syrin 234 Mg IM QMONTH I have reviewed the current psychotropics carefully including drug interactions. Risk benefit ratio favors no change other than as noted in my dictated progress note. Diagnosis: Problems: (1) Anxiety disorder (2) Bipolar affective, mixed, sev w/ psych (3) Dementia in Alzheimer's disease with delusions (4) Dementia in Alzheimer's disease with depression (5) Dementia, vascular, with delusions (6) Impulse control disorder (7) Schizoaffective disorder, chronic condition with acute exacerbation (8) Schizoaffective disorder DOMENIC BRUNSON MD Dec 13, 2017 22:31
[2017-12-14 06:24] VITALS: BP 127/75
[2017-12-14] MEDS: LINAGLIPTIN 5 MG TABLET PO SCH (06:27)
[2017-12-14] MEDS: LORazepam 2 MG/ML VIAL IM SCH (09:00)
[2017-12-14] MEDS: TIMOLOL 0.5% OPHTH SOLUTION 5ML BOTTLE. OU SCH ×2 (09:00→09:33)
[2017-12-14] MEDS: OXYBUTYNIN CHLORIDE 5 MG TABLET PO SCH ×3 (09:32→21:00)
[2017-12-14] MEDS: metFORMIN 500 MG TABLET PO SCH ×2 (09:32→16:32)
[2017-12-14] MEDS: GABAPENTIN 300 MG CAPSULE. PO SCH (09:32)
[2017-12-14] MEDS: POTASSIUM CHLORIDE 10 MEQ TABLET.ER. PO SCH ×2 (09:32→16:32)
[2017-12-14] MEDS: BENZTROPINE MESYLATE 1 MG TABLET PO SCH (09:33)
[2017-12-14] MEDS: HALOPERIDOL 5 MG TABLET PO SCH (09:33)
[2017-12-14] MEDS: amLODIPine BESYLATE 5 MG TABLET PO SCH (09:33)
[2017-12-14] MEDS: FERROUS SULFATE 325 MG TABLET. PO SCH ×2 (09:33→16:32)
[2017-12-14] MEDS: VALPROATE ACID 250 MG/5 ML ORAL SOLUTION PO SCH ×3 (09:34→21:00)
[2017-12-14] MEDS: hydroCHLOROthiazide 25 MG TABLET PO SCH (09:35)
[2017-12-14] MEDS: ATORVASTATIN CALCIUM 10 MG TABLET. PO SCH ×2 (20:06→21:00)
[2017-12-14] MEDS: traZODone 100 MG TABLET. PO SCH ×2 (20:07→21:00)
--- NOTE | 2017-12-14 22:22 | PDOC ---
Exam Note: José Miguel Note: Please also refer to the separate dictated note~for this date of service dictated separately.~Patient seen individually. Discussed the patient with Nursing staff reviewed the chart.~Reviewed interim history and current functioning. Reviewed vital signs,~Labs/ Radiology~and current medications noted below. Continue current treatment with the changes noted in the dictated addendum note Assessment: Vital Signs: Vital Signs Date Time Temp Pulse Resp B/P (MAP) Pulse Ox O2 Delivery O2 Flow Rate FiO2 12/14/17 09:33 79 127/75 12/14/17 06:24 97.4 20 97 12/10/17 22:57 Room Air I&O Intake and Output 12/14/17 07:00 Intake Total 900 ml Balance 900 ml Intake Oral 900 ml Current Medications: Meds: Current Medications Acetaminophen (Tylenol) 650 mg PRN Q6HRS PRN PO PAIN / TEMP; Start 12/10/17 at 05:00; Stop 12/11/17 at 16:16; Status DC Multi-Ingredient Ointment (Analgesic [place]) 1 van PRN QID PRN TP MUSCLE PAIN; Start 12/10/17 at 05:00 Al Hydroxide/Mg Hydroxide (Mylanta Plus Xs) 15 ml PRN AFTMEALHC PRN PO DYSPEPSIA; Start 12/10/17 at 05:00; Stop 12/11/17 at 16:16; Status DC Magnesium Hydroxide (Milk Of Magnesia) 2,400 mg PRN QHS PRN PO CONSTIPATION; Start 12/10/17 at 05:00; Stop 12/11/17 at 16:16; Status DC Acetaminophen (Tylenol) 650 mg PRN Q4HRS PRN PO PAIN / TEMP; Start 12/10/17 at 05:30 Amlodipine Besylate (Norvasc) 5 mg DAILY PO Last administered on 12/14/17at 09: 33; Start 12/10/17 at 09:00 Atorvastatin Calcium (Lipitor) 10 mg QHS PO Last administered on 12/13/17at 20: 48; Start 12/10/17 at 21:00 Bismuth Subsalicylate (Pepto-Bismol) 262 mg PRN Q4HRS PRN PO DYSPEPSIA; Start 12/10/17 at 05:30 Ferrous Sulfate (Feosol) 325 mg BIDAFTMEAL PO Last administered on 12/14/17 16 :32; Start 12/10/17 at 09:00 Gabapentin (Neurontin) 300 mg DAILY PO Last administered on 12/14/17 09:32; Start 12/10/17 at 09:00 Acetaminophen/ Hydrocodone Bitart (Lortab 5/325) 1 tab TID PRN PO PAIN Last administered on 12/10/17 22:57; Start 12/10/17 at 05:30 Al Hydroxide/Mg Hydroxide (Mylanta Plus Xs) 30 ml PRN Q4HRS PRN PO DYSPEPSIA; Start 12/10/17 at 05:30 Timolol Maleate (Timoptic 0.5% [facility]) 1 drop DAILY OU Last administered on 12/11 10:58; Start 12/10/17 at 09:00 Vitamin D (Vitamin D3) 50,000 unit WEEKLY PO Last administered on 12/12/17 18: 14; Start 12/12/17 at 09:00 Hydrochlorothiazide (Hydrodiuril) 25 mg DAILY PO Last administered on 09:35; Start 12/10/17 at 09:00 Loperamide HCl (Imodium) 2 mg PRN Q2HR PRN PO DIARRHEA; Start 12/10/17 at 05:30 Magnesium Hydroxide (Milk Of Magnesia) 2,400 mg PRN DAILY PRN PO CONSTIPATION; Start 12/10/17 at 05:30 Metformin HCl (Glucophage) 1,000 mg BIDWMEALS PO Last administered on 16:32; Start 12/10/17 at 08:00 Potassium Chloride (Klor-Con) 10 meq BIDWMEALS PO Last administered on 16:32; Start 12/10/17 at 08:00 Linagliptin (Tradjenta) 5 mg DAILY06 PO Last administered on 12/14/17 06:27; Start 12/10/17 at 06:00 Non-Formulary Medication (Solifenacin Succinate (Vesicare)) 5 mg DAILY PO ; Start 12/10/17 at 09:00; Stop 12/10/17 at 09:00; Status DC Oxybutynin Chloride (Ditropan) 5 mg BID PO Last administered on 12/14/17 09:32 ; Start 12/10/17 at 09:00 Benztropine Mesylate (Cogentin) 1 mg DAILY PO Last administered on 12/14/17 09 :33; Start 12/10/17 at 11:00 Olanzapine (ZyPREXA ZYDIS) 2.5 mg PRN Q2HR PRN PO PSYCHOSIS Last administered on 12/10/17 11:04; Start 12/10/17 at 10:45; Stop 12/10/17 at 11:26; Status DC Olanzapine (ZyPREXA ZYDIS) 5 mg PRN Q2HR PRN PO PSYCHOSIS Last administered on 12/13/17 11:20; Start 12/10/17 at 11:30 Lorazepam (Ativan) 0.5 mg PRN Q2HR PRN PO ANXIETY / AGITATION Last administered on 12/11/17 20:14; Start 12/10/17 at 11:30 Valproic Acid (Depakene) 500 mg QHS PO ; Start 12/10/17 at 21:00; Stop 12/11/17 at 18:46; Status DC Haloperidol Lactate (Haldol) 5 mg DAILY IM Last administered on 12/12/17at 19:42 ; Start 12/11/17 at 03:15; Stop 12/13/17 at 05:13; Status DC Lorazepam (Ativan) 1 mg DAILY IM Last administered on 12/12/17at 21:12; Start at 03:15; Stop 12/14/17 at 18:47; Status DC Valproic Acid (Depakene) 500 mg QHS PO Last administered on 12/12/17at 19:15; Start 12/11/17 at 21:00; Stop 12/13/17 at 15:44; Status DC Trazodone HCl (Desyrel) 100 mg QHS PO Last administered on 12/13/17at 20:48; Start 12/12/17 at 21:00 Trazodone HCl (Desyrel) 100 mg PRN QHS PRN PO INSOMNIA; Start 12/12/17 at 20:00 Haloperidol (Haldol) 10 mg DAILY PO Last administered on 12/14/17 09:33; Start 12/13/17 at 09:00 Valproic Acid (Depakene) 500 mg BID PO Last administered on 12/14/17 09:34; Start 12/13/17 at 16:00 Active Scripts Active Reported Benztropine Mesylate 1 Mg Tablet 1 Mg PO DAILY Atorvastatin Calcium 10 Mg Tablet 10 Mg PO QHS Amlodipine Besylate 5 Mg Tablet 5 Mg PO DAILY Januvia (Sitagliptin Phosphate) 100 Mg Tablet 100 Mg PO DAILY06 Potassium Chloride 10 Meq Tablet.er 10 Meq PO BID Metformin Hcl 1,000 Mg Tablet 1,000 Mg PO BID Hydrocodone-Apap 5-325 (Hydrocodone Bit/Acetaminophen) 1 Each Tablet 1 Tab PO TID PRN Hydrochlorothiazide Tablet (Hydrochlorothiazide) 12.5 Mg Tablet 25 Mg PO DAILY Gabapentin 300 Mg Capsule 300 Mg PO DAILY Ferrous Sulfate 325 Mg Tablet 325 Mg PO BID Vitamin D2 (Ergocalciferol (Vitamin D2)) 50,000 Unit Capsule 50,000 Unit PO QFR Vesicare (Solifenacin Succinate) 5 Mg Tablet 5 Mg PO DAILY Timoptic (Timolol Maleate) 10 Ml Drops 1 Ml OU DAILY Milk Of Magnesia (Magnesium Hydroxide) 2,400 Mg/10 Ml Oral.susp 2,400 Mg PO PRN DAILY PRN Maalox Maximum Strength Susp (Mag Hydrox/Al Hydrox/Simeth) 355 Ml Oral.susp 30 Ml PO PRN Q4HRS PRN Loperamide (Loperamide Hcl) 2 Mg Tablet 2 Mg PO PRN Q2HR PRN Bismatrol (Bismuth Subsalicylate) 262 Mg/15 Ml Oral.susp 262 Mg PO PRN Q4HRS PRN Tylenol (Acetaminophen) 325 Mg Tablet 650 Mg PO PRN Q4HRS PRN Zyprexa Zydis (Olanzapine) 5 Mg Tab.rapdis 2.5 Mg PO PRN Q2HR PRN Haldol Decanoate 100 (Haloperidol Decanoate) 100 Mg/1 Ml Ampul 50 Mg IM [id number] Invega Sustenna (Paliperidone Palmitate) 234 Mg/1.5 Ml Disp.syrin 234 Mg IM QMONTH I have reviewed the current psychotropics carefully including drug interactions. Risk benefit ratio favors no change other than as noted in my dictated progress note. Diagnosis: Problems: (1) Anxiety disorder (2) Bipolar affective, mixed, sev w/ psych (3) Dementia in Alzheimer's disease with delusions (4) Dementia in Alzheimer's disease with depression (5) Dementia, vascular, with delusions (6) Impulse control disorder (7) Schizoaffective disorder, chronic condition with acute exacerbation (8) Schizoaffective disorder DOMENIC BRUNSON MD Dec 14, 2017 22:22
--- NOTE | 2017-12-14 23:42 | PN ---
DATE: 12/12/2017 This is a late entry of 12/12/2017 covers elements not covered in my initial note of 12/12/2017. SUBJECTIVE: I met with the patient in the evening. She slept 3 hours, had a better day, still hyperverbal, did lie down to rest after lunch. REVIEW OF SYSTEMS: No CV, , pulmonary, eye, ENT system symptoms on review. Reliability poor. MENTAL STATUS EXAM: Oriented to herself. Insight, judgment, recent and remote memory, attention, concentration, fund of knowledge poor, consistent with her diagnosis. IMPRESSION: Schizoaffective disorder, bipolar type, mixed with psychotic features. PLAN: Change IM Haldol, Ativan to p.o. Haldol 10 mg along with Ativan p.r.n. Start trazodone 100 mg at bedtime, december repeat x 1 for insomnia. Continue rest unchanged. Encourage compliance with psychotropics. DOMENIC BRUNSON MD DR: LACEY/mamadou JOB#: [id number] / [id number]
[2017-12-15] MEDS: ATORVASTATIN CALCIUM 10 MG TABLET. PO SCH ×2 (02:30→20:09)
[2017-12-15] MEDS: OXYBUTYNIN CHLORIDE 5 MG TABLET PO SCH ×3 (02:30→20:09)
[2017-12-15] MEDS: VALPROATE ACID 250 MG/5 ML ORAL SOLUTION PO SCH ×3 (02:30→20:10)
[2017-12-15] MEDS: traZODone 100 MG TABLET. PO SCH ×2 (02:30→20:10)
[2017-12-15] MEDS: LINAGLIPTIN 5 MG TABLET PO SCH (05:19)
[2017-12-15 06:15] VITALS: BP 120/73
[2017-12-15] MEDS: TIMOLOL 0.5% OPHTH SOLUTION 5ML BOTTLE. OU SCH (10:00)
[2017-12-15] MEDS: HALOPERIDOL 5 MG TABLET PO SCH (10:34)
[2017-12-15] MEDS: GABAPENTIN 300 MG CAPSULE. PO SCH (10:34)
[2017-12-15] MEDS: BENZTROPINE MESYLATE 1 MG TABLET PO SCH (10:34)
[2017-12-15] MEDS: FERROUS SULFATE 325 MG TABLET. PO SCH ×2 (10:35→17:16)
[2017-12-15] MEDS: metFORMIN 500 MG TABLET PO SCH ×2 (10:35→17:16)
[2017-12-15] MEDS: amLODIPine BESYLATE 5 MG TABLET PO SCH (10:35)
[2017-12-15] MEDS: hydroCHLOROthiazide 25 MG TABLET PO SCH (10:35)
[2017-12-15] MEDS: POTASSIUM CHLORIDE 10 MEQ TABLET.ER. PO SCH ×2 (10:36→17:17)
[2017-12-15 16:12] VITALS: BP 136/83
--- NOTE | 2017-12-15 21:33 | PDOC ---
Exam Note: José Miguel Note: Please also refer to the separate dictated note~for this date of service dictated separately.~Patient seen individually. Discussed the patient with Nursing staff reviewed the chart.~Reviewed interim history and current functioning. Reviewed vital signs,~Labs/ Radiology~and current medications noted below. Continue current treatment with the changes noted in the dictated addendum note Assessment: Vital Signs: Vital Signs Date Time Temp Pulse Resp B/P (MAP) Pulse Ox O2 Delivery O2 Flow Rate FiO2 12/15/17 16:12 97.1 72 17 136/83 (100) 97 12/10/17 22:57 Room Air I&O Intake and Output 12/15/17 07:00 Intake Total 1560 ml Balance 1560 ml Intake Oral 1560 ml # Voids 1 Labs: Laboratory Tests Test 12/15/17 07:28 Glucose (Fingerstick) 85 mg/dL (70-99) Current Medications: Meds: Current Medications Acetaminophen (Tylenol) 650 mg PRN Q6HRS PRN PO PAIN / TEMP; Start 12/10/17 at 05:00; Stop 12/11/17 at 16:16; Status DC Multi-Ingredient Ointment (Analgesic [place]) 1 van PRN QID PRN TP MUSCLE PAIN; Start 12/10/17 at 05:00 Al Hydroxide/Mg Hydroxide (Mylanta Plus Xs) 15 ml PRN AFTMEALHC PRN PO DYSPEPSIA; Start 12/10/17 at 05:00; Stop 12/11/17 at 16:16; Status DC Magnesium Hydroxide (Milk Of Magnesia) 2,400 mg PRN QHS PRN PO CONSTIPATION; Start 12/10/17 at 05:00; Stop 12/11/17 at 16:16; Status DC Acetaminophen (Tylenol) 650 mg PRN Q4HRS PRN PO PAIN / TEMP; Start 12/10/17 at 05:30 Amlodipine Besylate (Norvasc) 5 mg DAILY PO Last administered on 12/15/17at 10: 35; Start 12/10/17 at 09:00 Atorvastatin Calcium (Lipitor) 10 mg QHS PO Last administered on 12/15/17at 20: 09; Start 12/10/17 at 21:00 Bismuth Subsalicylate (Pepto-Bismol) 262 mg PRN Q4HRS PRN PO DYSPEPSIA; Start 12/10/17 at 05:30 Ferrous Sulfate (Feosol) 325 mg BIDAFTMEAL PO Last administered on 12/15/17 17 :16; Start 12/10/17 at 09:00 Gabapentin (Neurontin) 300 mg DAILY PO Last administered on 12/15/17 10:34; Start 12/10/17 at 09:00 Acetaminophen/ Hydrocodone Bitart (Lortab 5/325) 1 tab TID PRN PO PAIN Last administered on 12/10/17 22:57; Start 12/10/17 at 05:30 Al Hydroxide/Mg Hydroxide (Mylanta Plus Xs) 30 ml PRN Q4HRS PRN PO DYSPEPSIA; Start 12/10/17 at 05:30 Timolol Maleate (Timoptic 0.5% [facility]) 1 drop DAILY OU Last administered on 12/11 10:58; Start 12/10/17 at 09:00 Vitamin D (Vitamin D3) 50,000 unit WEEKLY PO Last administered on 12/12/17 18: 14; Start 12/12/17 at 09:00 Hydrochlorothiazide (Hydrodiuril) 25 mg DAILY PO Last administered on 10:35; Start 12/10/17 at 09:00 Loperamide HCl (Imodium) 2 mg PRN Q2HR PRN PO DIARRHEA; Start 12/10/17 at 05:30 Magnesium Hydroxide (Milk Of Magnesia) 2,400 mg PRN DAILY PRN PO CONSTIPATION; Start 12/10/17 at 05:30 Metformin HCl (Glucophage) 1,000 mg BIDWMEALS PO Last administered on 17:16; Start 12/10/17 at 08:00 Potassium Chloride (Klor-Con) 10 meq BIDWMEALS PO Last administered on 17:17; Start 12/10/17 at 08:00 Linagliptin (Tradjenta) 5 mg DAILY06 PO Last administered on 12/15/17 05:19; Start 12/10/17 at 06:00 Non-Formulary Medication (Solifenacin Succinate (Vesicare)) 5 mg DAILY PO ; Start 12/10/17 at 09:00; Stop 12/10/17 at 09:00; Status DC Oxybutynin Chloride (Ditropan) 5 mg BID PO Last administered on 12/15/17 20:09 ; Start 12/10/17 at 09:00 Benztropine Mesylate (Cogentin) 1 mg DAILY PO Last administered on 12/15/17 10 :34; Start 12/10/17 at 11:00 Olanzapine (ZyPREXA ZYDIS) 2.5 mg PRN Q2HR PRN PO PSYCHOSIS Last administered on 12/10/17 11:04; Start 12/10/17 at 10:45; Stop 12/10/17 at 11:26; Status DC Olanzapine (ZyPREXA ZYDIS) 5 mg PRN Q2HR PRN PO PSYCHOSIS Last administered on 12/15/17 10:00; Start 12/10/17 at 11:30 Lorazepam (Ativan) 0.5 mg PRN Q2HR PRN PO ANXIETY / AGITATION Last administered on 12/11/17 20:14; Start 12/10/17 at 11:30 Valproic Acid (Depakene) 500 mg QHS PO ; Start 12/10/17 at 21:00; Stop 12/11/17 at 18:46; Status DC Haloperidol Lactate (Haldol) 5 mg DAILY IM Last administered on 12/12/17at 19:42 ; Start 12/11/17 at 03:15; Stop 12/13/17 at 05:13; Status DC Lorazepam (Ativan) 1 mg DAILY IM Last administered on 12/12/17 21:12; Start at 03:15; Stop 12/14/17 at 18:47; Status DC Valproic Acid (Depakene) 500 mg QHS PO Last administered on 12/12/17at 19:15; Start 12/11/17 at 21:00; Stop 12/13/17 at 15:44; Status DC Trazodone HCl (Desyrel) 100 mg QHS PO Last administered on 12/15/17at 20:10; Start 12/12/17 at 21:00 Trazodone HCl (Desyrel) 100 mg PRN QHS PRN PO INSOMNIA; Start 12/12/17 at 20:00 Haloperidol (Haldol) 10 mg DAILY PO Last administered on 12/15/17 10:34; Start 12/13/17 at 09:00; Stop 12/15/17 at 19:17; Status DC Valproic Acid (Depakene) 500 mg BID PO Last administered on 12/15/17at 20:10; Start 12/13/17 at 16:00 Haloperidol (Haldol) 15 mg DAILY PO ; Start 12/16/17 at 09:00 Active Scripts Active Reported Benztropine Mesylate 1 Mg Tablet 1 Mg PO DAILY Atorvastatin Calcium 10 Mg Tablet 10 Mg PO QHS Amlodipine Besylate 5 Mg Tablet 5 Mg PO DAILY Januvia (Sitagliptin Phosphate) 100 Mg Tablet 100 Mg PO DAILY06 Potassium Chloride 10 Meq Tablet.er 10 Meq PO BID Metformin Hcl 1,000 Mg Tablet 1,000 Mg PO BID Hydrocodone-Apap 5-325 (Hydrocodone Bit/Acetaminophen) 1 Each Tablet 1 Tab PO TID PRN Hydrochlorothiazide Tablet (Hydrochlorothiazide) 12.5 Mg Tablet 25 Mg PO DAILY Gabapentin 300 Mg Capsule 300 Mg PO DAILY Ferrous Sulfate 325 Mg Tablet 325 Mg PO BID Vitamin D2 (Ergocalciferol (Vitamin D2)) 50,000 Unit Capsule 50,000 Unit PO QFR Vesicare (Solifenacin Succinate) 5 Mg Tablet 5 Mg PO DAILY Timoptic (Timolol Maleate) 10 Ml Drops 1 Ml OU DAILY Milk Of Magnesia (Magnesium Hydroxide) 2,400 Mg/10 Ml Oral.susp 2,400 Mg PO PRN DAILY PRN Maalox Maximum Strength Susp (Mag Hydrox/Al Hydrox/Simeth) 355 Ml Oral.susp 30 Ml PO PRN Q4HRS PRN Loperamide (Loperamide Hcl) 2 Mg Tablet 2 Mg PO PRN Q2HR PRN Bismatrol (Bismuth Subsalicylate) 262 Mg/15 Ml Oral.susp 262 Mg PO PRN Q4HRS PRN Tylenol (Acetaminophen) 325 Mg Tablet 650 Mg PO PRN Q4HRS PRN Zyprexa Zydis (Olanzapine) 5 Mg Tab.rapdis 2.5 Mg PO PRN Q2HR PRN Haldol Decanoate 100 (Haloperidol Decanoate) 100 Mg/1 Ml Ampul 50 Mg IM [id number] Invega Sustenna (Paliperidone Palmitate) 234 Mg/1.5 Ml Disp.syrin 234 Mg IM QMONTH I have reviewed the current psychotropics carefully including drug interactions. Risk benefit ratio favors no change other than as noted in my dictated progress note. Diagnosis: Problems: (1) Anxiety disorder (2) Bipolar affective, mixed, sev w/ psych (3) Dementia in Alzheimer's disease with delusions (4) Dementia in Alzheimer's disease with depression (5) Dementia, vascular, with delusions (6) Impulse control disorder (7) Schizoaffective disorder, chronic condition with acute exacerbation (8) Schizoaffective disorder DOMENIC BRUNSON MD Dec 15, 2017 21:33
--- NOTE | 2017-12-16 03:01 | PN ---
DATE: 12/13/2017 This is a late entry for 12/13/2017 covers elements not covered in my initial note of 12/13/2017. SUBJECTIVE: I met with the patient individually. The patient slept 7 hours. She was up at night muttering and hallucinating, takes her medications orally in chocolate pudding, which in itself is an improvement. We have stopped the IM Haldol and Ativan and she is on the p.o. Haldol 10 mg. Valproic acid level is subtherapeutic at 500 mg at bedtime of the liquid valproic acid and we will increase it to 500 mg twice a day. Check CBC, CMP, valproic acid level in 3 days. REVIEW OF SYSTEMS: No CV, , pulmonary, eye, ENT system symptoms on review. Reliability poor. MENTAL STATUS EXAM: Oriented to herself. Insight, judgment, recent and remote memory, attention, concentration, fund of knowledge poor, consistent with her diagnosis. The patient remains quite psychotic, labile, distracted, constantly moving as I met with her. LABORATORY DATA: Reviewed. IMPRESSION: Schizoaffective disorder, bipolar type, mixed with psychotic features; cognitive disorder, unspecified. PLAN: Continue current psychotropics with the changes noted above. DOMENIC BRUNSON MD DR: LACEY/mamadou JOB#: [id number] / [id number]
--- NOTE | 2017-12-16 04:17 | PN ---
DATE: 12/14/2017 PSYCHIATRIC PROGRESS NOTE This late entry 12/14/2017 covers elements not covered in my initial note of 12/14/2017. SUBJECTIVE: I met with the patient in the evening. She slept 6-3/4 hours previous evening, took oral medications in the morning, IM Ativan has been stopped. REVIEW OF SYSTEMS: No CV, , pulmonary, eye, ENT system symptoms on review. Reliability poor. MENTAL STATUS EXAM: Oriented to herself. Insight, judgment, recent and remote memory, attention, concentration, fund of knowledge poor, consistent with her diagnosis. She is still labile in her mood, less psychotic. LABORATORIES: Reviewed. IMPRESSION: Schizoaffective disorder, bipolar type, mixed with psychotic features; cognitive disorder, unspecified. PLAN: Continue current psychotropics including oral Haldol. She is also on Cogentin, Haldol decanoate, trazodone, Depakene which was increased. Repeat labs on 12/16/2017. DOMENIC BRUNSON MD DR: LACEY/mamadou JOB#: [id number] / [id number]
[2017-12-16] MEDS: LINAGLIPTIN 5 MG TABLET PO SCH (05:57)
[2017-12-16 06:27] VITALS: BP 120/77
[2017-12-16] MEDS: LORazepam 0.5 MG TABLET PO PRN (07:54)
[2017-12-16] MEDS: TIMOLOL 0.5% OPHTH SOLUTION 5ML BOTTLE. OU SCH (09:00)
[2017-12-16] MEDS: hydroCHLOROthiazide 25 MG TABLET PO SCH (10:10)
[2017-12-16] MEDS: OXYBUTYNIN CHLORIDE 5 MG TABLET PO SCH ×2 (10:10→19:22)
[2017-12-16] MEDS: BENZTROPINE MESYLATE 1 MG TABLET PO SCH (10:10)
[2017-12-16] MEDS: FERROUS SULFATE 325 MG TABLET. PO SCH ×2 (10:10→17:23)
[2017-12-16] MEDS: metFORMIN 500 MG TABLET PO SCH ×2 (10:11→17:24)
[2017-12-16] MEDS: POTASSIUM CHLORIDE 10 MEQ TABLET.ER. PO SCH ×2 (10:11→17:23)
[2017-12-16] MEDS: VALPROATE ACID 250 MG/5 ML ORAL SOLUTION PO SCH ×2 (10:12→19:22)
[2017-12-16] MEDS: HALOPERIDOL 5 MG TABLET PO SCH (10:14)
[2017-12-16] MEDS: amLODIPine BESYLATE 5 MG TABLET PO SCH (10:17)
[2017-12-16] MEDS: GABAPENTIN 300 MG CAPSULE. PO SCH (10:17)
[2017-12-16 10:43] LABS: BASO # 0.1 x10^3/uL (0.0-0.2); BASO % 1 % (0-3); EOS # 0.1 x10^3/uL (0.0-0.7); EOS % 2 % (0-3); HEMATOCRIT 39.4 % (36.0-47.0); HEMOGLOBIN 13.1 g/dL (12.0-15.5); LYMPH # 1.5 x10^3/uL (1.0-4.8); LYMPH % 22 % (24-48); MEAN CORPUSCULAR HEMOGLOBIN 28 pg (25-35); MEAN CORPUSCULAR HGB CONC 33 g/dL (31-37); MEAN CORPUSCULAR VOLUME 84 fL (79-100); MONO # 0.6 x10^3/uL (0.0-1.1); MONO % 8 % (0-9); NEUT # 4.7 x10^3uL (1.8-7.7); NEUT % 67 % (31-73); PLATELET COUNT 251 x10^3/uL (140-400); RED BLOOD COUNT 4.67 x10^6/uL (3.50-5.40); RED CELL DISTRIBUTION WIDTH 15.1 % (11.5-14.5)
[2017-12-16 10:57] LABS: ALBUMIN 3.5 g/dL (3.4-5.0); ALBUMIN/GLOBULIN RATIO 0.9 (1.0-1.7); ALK PHOS 81 U/L (46-116); ALT (SGPT) 23 U/L (14-59); ANION GAP 10 (6-14); AST (SGOT) 12 U/L (15-37); BLOOD UREA NITROGEN 17 mg/dL (7-20); BUN/CREATININE RATIO 19 (6-20); CALCIUM 9.1 mg/dL (8.5-10.1); CARBON DIOXIDE 29 mmol/L (21-32); CHLORIDE 101 mmol/L (98-107); CREATININE 0.9 mg/dL (0.6-1.0); GFR 63.2; GLUCOSE 167 mg/dL (70-99); POTASSIUM 3.3 mmol/L (3.5-5.1); SODIUM 140 mmol/L (136-145); TOTAL BILIRUBIN 0.3 mg/dL (0.2-1.0); TOTAL PROTEIN 7.4 g/dL (6.4-8.2)
[2017-12-16 11:05] LABS: VAL ACID 77 mcg/mL (50-100)
[2017-12-16 15:56] VITALS: BP 131/75
[2017-12-16] MEDS: traZODone 100 MG TABLET. PO SCH (19:22)
[2017-12-16] MEDS: ATORVASTATIN CALCIUM 10 MG TABLET. PO SCH (19:22)
--- NOTE | 2017-12-16 21:34 | PDOC ---
Exam Note: José Miguel Note: Please also refer to the separate dictated note~for this date of service dictated separately.~Patient seen individually. Discussed the patient with Nursing staff reviewed the chart.~Reviewed interim history and current functioning. Reviewed vital signs,~Labs/ Radiology~and current medications noted below. Continue current treatment with the changes noted in the dictated addendum note Assessment: Vital Signs: Vital Signs Date Time Temp Pulse Resp B/P (MAP) Pulse Ox O2 Delivery O2 Flow Rate FiO2 12/16/17 15:56 97.2 94 20 131/75 (93) 95 12/10/17 22:57 Room Air I&O Intake and Output 12/16/17 07:00 Intake Total 480 ml Balance 480 ml Intake Oral 480 ml # Voids 1 Labs: Laboratory Tests Test 12/16/17 07:26 12/16/17 10:35 Glucose (Fingerstick) 92 mg/dL (70-99) White Blood Count 7.0 x10^3/uL (4.0-11.0) Red Blood Count 4.67 x10^6/uL (3.50-5.40) Hemoglobin 13.1 g/dL (12.0-15.5) Hematocrit 39.4 % (36.0-47.0) Mean Corpuscular Volume 84 fL (79-100) Mean Corpuscular Hemoglobin 28 pg (25-35) Mean Corpuscular Hemoglobin Concent 33 g/dL (31-37) Red Cell Distribution Width 15.1 % (11.5-14.5) H Platelet Count 251 x10^3/uL (140-400) Neutrophils (%) (Auto) 67 % (31-73) Lymphocytes (%) (Auto) 22 % (24-48) L Monocytes (%) (Auto) 8 % (0-9) Eosinophils (%) (Auto) 2 % (0-3) Basophils (%) (Auto) 1 % (0-3) Neutrophils # (Auto) 4.7 x10^3uL (1.8-7.7) Lymphocytes # (Auto) 1.5 x10^3/uL (1.0-4.8) Monocytes # (Auto) 0.6 x10^3/uL (0.0-1.1) Eosinophils # (Auto) 0.1 x10^3/uL (0.0-0.7) Basophils # (Auto) 0.1 x10^3/uL (0.0-0.2) Sodium Level 140 mmol/L (136-145) Potassium Level 3.3 mmol/L (3.5-5.1) L Chloride Level 101 mmol/L (98-107) Carbon Dioxide Level 29 mmol/L (21-32) Anion Gap 10 (6-14) Blood Urea Nitrogen 17 mg/dL (7-20) Creatinine 0.9 mg/dL (0.6-1.0) Estimated GFR (Cockcroft-Gault) 63.2 BUN/Creatinine Ratio 19 (6-20) Glucose Level 167 mg/dL (70-99) H Calcium Level 9.1 mg/dL (8.5-10.1) Total Bilirubin 0.3 mg/dL (0.2-1.0) Aspartate Amino Transferase (AST) 12 U/L (15-37) L Alanine Aminotransferase (ALT) 23 U/L (14-59) Alkaline Phosphatase 81 U/L (46-116) Total Protein 7.4 g/dL (6.4-8.2) Albumin 3.5 g/dL (3.4-5.0) Albumin/Globulin Ratio 0.9 (1.0-1.7) L Valproic Acid Level 77 mcg/mL (50-100) Valproic Acid Last Dose Date 12/15/2017 Valproic Acid Last Dose Time 2100 Current Medications: Meds: Current Medications Acetaminophen (Tylenol) 650 mg PRN Q6HRS PRN PO PAIN / TEMP; Start 12/10/17 at 05:00; Stop 12/11/17 at 16:16; Status DC Multi-Ingredient Ointment (Analgesic [place]) 1 van PRN QID PRN TP MUSCLE PAIN; Start 12/10/17 at 05:00 Al Hydroxide/Mg Hydroxide (Mylanta Plus Xs) 15 ml PRN AFTMEALHC PRN PO DYSPEPSIA; Start 12/10/17 at 05:00; Stop 12/11/17 at 16:16; Status DC Magnesium Hydroxide (Milk Of Magnesia) 2,400 mg PRN QHS PRN PO CONSTIPATION; Start 12/10/17 at 05:00; Stop 12/11/17 at 16:16; Status DC Acetaminophen (Tylenol) 650 mg PRN Q4HRS PRN PO PAIN / TEMP; Start 12/10/17 at 05:30 Amlodipine Besylate (Norvasc) 5 mg DAILY PO Last administered on 12/16/17 10:17 ; Start 12/10/17 at 09:00 Atorvastatin Calcium (Lipitor) 10 mg QHS PO Last administered on 12/16/17 19:22 ; Start 12/10/17 at 21:00 Bismuth Subsalicylate (Pepto-Bismol) 262 mg PRN Q4HRS PRN PO DYSPEPSIA; Start 12/10/17 at 05:30 Ferrous Sulfate (Feosol) 325 mg BIDAFTMEAL PO Last administered on 12/16/17 17: 23; Start 12/10/17 at 09:00 Gabapentin (Neurontin) 300 mg DAILY PO Last administered on 12/16/17 10:17; Start 12/10/17 at 09:00 Acetaminophen/ Hydrocodone Bitart (Lortab 5/325) 1 tab TID PRN PO PAIN Last administered on 12/10/17 22:57; Start 12/10/17 at 05:30 Al Hydroxide/Mg Hydroxide (Mylanta Plus Xs) 30 ml PRN Q4HRS PRN PO DYSPEPSIA; Start 12/10/17 at 05:30 Timolol Maleate (Timoptic 0.5% [facility]) 1 drop DAILY OU Last administered on 12/11 10:58; Start 12/10/17 at 09:00 Vitamin D (Vitamin D3) 50,000 unit WEEKLY PO Last administered on 12/12/17at 18: 14; Start 12/12/17 at 09:00 Hydrochlorothiazide (Hydrodiuril) 25 mg DAILY PO Last administered on 12/16/17 10:10; Start 12/10/17 at 09:00 Loperamide HCl (Imodium) 2 mg PRN Q2HR PRN PO DIARRHEA; Start 12/10/17 at 05:30 Magnesium Hydroxide (Milk Of Magnesia) 2,400 mg PRN DAILY PRN PO CONSTIPATION; Start 12/10/17 at 05:30 Metformin HCl (Glucophage) 1,000 mg BIDWMEALS PO Last administered on 12/16/17 17:24; Start 12/10/17 at 08:00 Potassium Chloride (Klor-Con) 10 meq BIDWMEALS PO Last administered on 17:23; Start 12/10/17 at 08:00 Linagliptin (Tradjenta) 5 mg DAILY06 PO Last administered on 12/16/17at 05:57; Start 12/10/17 at 06:00 Non-Formulary Medication (Solifenacin Succinate (Vesicare)) 5 mg DAILY PO ; Start 12/10/17 at 09:00; Stop 12/10/17 at 09:00; Status DC Oxybutynin Chloride (Ditropan) 5 mg BID PO Last administered on 12/16/17at 19:22 ; Start 12/10/17 at 09:00 Benztropine Mesylate (Cogentin) 1 mg DAILY PO Last administered on 12/16/17at 10: 10; Start 12/10/17 at 11:00 Olanzapine (ZyPREXA ZYDIS) 2.5 mg PRN Q2HR PRN PO PSYCHOSIS Last administered on 12/10/17 11:04; Start 12/10/17 at 10:45; Stop 12/10/17 at 11:26; Status DC Olanzapine (ZyPREXA ZYDIS) 5 mg PRN Q2HR PRN PO PSYCHOSIS Last administered on 12/16/17at 18:36; Start 12/10/17 at 11:30 Lorazepam (Ativan) 0.5 mg PRN Q2HR PRN PO ANXIETY / AGITATION Last administered on 12/16/17at 07:54; Start 12/10/17 at 11:30 Valproic Acid (Depakene) 500 mg QHS PO ; Start 12/10/17 at 21:00; Stop 12/11/17 at 18:46; Status DC Haloperidol Lactate (Haldol) 5 mg DAILY IM Last administered on 12/12/17at 19:42 ; Start 12/11/17 at 03:15; Stop 12/13/17 at 05:13; Status DC Lorazepam (Ativan) 1 mg DAILY IM Last administered on 12/12/17at 21:12; Start at 03:15; Stop 12/14/17 at 18:47; Status DC Valproic Acid (Depakene) 500 mg QHS PO Last administered on 12/12/17at 19:15; Start 12/11/17 at 21:00; Stop 12/13/17 at 15:44; Status DC Trazodone HCl (Desyrel) 100 mg QHS PO Last administered on 12/16/17at 19:22; Start 12/12/17 at 21:00 Trazodone HCl (Desyrel) 100 mg PRN QHS PRN PO INSOMNIA; Start 12/12/17 at 20:00 Haloperidol (Haldol) 10 mg DAILY PO Last administered on 12/15/17at 10:34; Start 12/13/17 at 09:00; Stop 12/15/17 at 19:17; Status DC Valproic Acid (Depakene) 500 mg BID PO Last administered on 12/16/17at 19:22; Start 12/13/17 at 16:00 Haloperidol (Haldol) 15 mg DAILY PO Last administered on 12/16/17at 10:14; Start 12/16/17 at 09:00 Active Scripts Active Reported Benztropine Mesylate 1 Mg Tablet 1 Mg PO DAILY Atorvastatin Calcium 10 Mg Tablet 10 Mg PO QHS Amlodipine Besylate 5 Mg Tablet 5 Mg PO DAILY Januvia (Sitagliptin Phosphate) 100 Mg Tablet 100 Mg PO DAILY06 Potassium Chloride 10 Meq Tablet.er 10 Meq PO BID Metformin Hcl 1,000 Mg Tablet 1,000 Mg PO BID Hydrocodone-Apap 5-325 (Hydrocodone Bit/Acetaminophen) 1 Each Tablet 1 Tab PO TID PRN Hydrochlorothiazide Tablet (Hydrochlorothiazide) 12.5 Mg Tablet 25 Mg PO DAILY Gabapentin 300 Mg Capsule 300 Mg PO DAILY Ferrous Sulfate 325 Mg Tablet 325 Mg PO BID Vitamin D2 (Ergocalciferol (Vitamin D2)) 50,000 Unit Capsule 50,000 Unit PO QFR Vesicare (Solifenacin Succinate) 5 Mg Tablet 5 Mg PO DAILY Timoptic (Timolol Maleate) 10 Ml Drops 1 Ml OU DAILY Milk Of Magnesia (Magnesium Hydroxide) 2,400 Mg/10 Ml Oral.susp 2,400 Mg PO PRN DAILY PRN Maalox Maximum Strength Susp (Mag Hydrox/Al Hydrox/Simeth) 355 Ml Oral.susp 30 Ml PO PRN Q4HRS PRN Loperamide (Loperamide Hcl) 2 Mg Tablet 2 Mg PO PRN Q2HR PRN Bismatrol (Bismuth Subsalicylate) 262 Mg/15 Ml Oral.susp 262 Mg PO PRN Q4HRS PRN Tylenol (Acetaminophen) 325 Mg Tablet 650 Mg PO PRN Q4HRS PRN Zyprexa Zydis (Olanzapine) 5 Mg Tab.rapdis 2.5 Mg PO PRN Q2HR PRN Haldol Decanoate 100 (Haloperidol Decanoate) 100 Mg/1 Ml Ampul 50 Mg IM [id number] Invega Sustenna (Paliperidone Palmitate) 234 Mg/1.5 Ml Disp.syrin 234 Mg IM QMONTH I have reviewed the current psychotropics carefully including drug interactions. Risk benefit ratio favors no change other than as noted in my dictated progress note. Diagnosis: Problems: (1) Anxiety disorder (2) Bipolar affective, mixed, sev w/ psych (3) Dementia in Alzheimer's disease with delusions (4) Dementia in Alzheimer's disease with depression (5) Dementia, vascular, with delusions (6) Impulse control disorder (7) Schizoaffective disorder, chronic condition with acute exacerbation (8) Schizoaffective disorder DOMENIC BRUNSON MD December 16, 2017 21:34
--- NOTE | 2017-12-17 02:59 | PN ---
DATE: 12/15/2017 PSYCHIATRIC PROGRESS NOTE This is a late entry for 12/15/2017, covers elements not covered in my initial note of 12/15/2017. SUBJECTIVE: I met with the patient in the evening. The patient slept 6 hours previous evening, refused medications until 2:00 a.m., then took medications in ice cream, agitated in the morning. Still psychotic, but better, more redirectable. REVIEW OF SYSTEMS: No CV, , pulmonary, eye, ENT system symptoms on review. Reliability poor. MENTAL STATUS EXAM: Oriented to herself. Insight, judgment, recent memory is impaired. Language function intact. Attention span short. Mood and affect remain somewhat labile, still psychotic, pushing me away as I met with her, paranoid, suspicious. LABORATORY DATA: Reviewed. IMPRESSION: Schizoaffective disorder, bipolar type, mixed with psychotic features. PLAN: Increase Haldol from 10 mg a day to 15 mg a day p.o. Continue Depakene at current dosage. Repeat labs on 12/16/2017. Adjust to reach a therapeutic level. MAN Nixon BRUNSON MD DR: LACEY/mamadou JOB#: [id number] / [id number]
[2017-12-17] MEDS: LINAGLIPTIN 5 MG TABLET PO SCH (05:50)
[2017-12-17 06:36] VITALS: BP 137/73
[2017-12-17] MEDS: TIMOLOL 0.5% OPHTH SOLUTION 5ML BOTTLE. OU SCH (09:00)
[2017-12-17] MEDS: GABAPENTIN 300 MG CAPSULE. PO SCH (11:02)
[2017-12-17] MEDS: metFORMIN 500 MG TABLET PO SCH ×2 (11:02→17:55)
[2017-12-17] MEDS: BENZTROPINE MESYLATE 1 MG TABLET PO SCH (11:02)
[2017-12-17] MEDS: OXYBUTYNIN CHLORIDE 5 MG TABLET PO SCH ×2 (11:02→20:25)
[2017-12-17] MEDS: HALOPERIDOL 5 MG TABLET PO SCH (11:02)
[2017-12-17] MEDS: HYDROcodone/APAP 5/325MG 1 TAB TABLET PO PRN (11:03)
[2017-12-17] MEDS: POTASSIUM CHLORIDE 10 MEQ TABLET.ER. PO SCH ×2 (11:03→18:05)
[2017-12-17] MEDS: amLODIPine BESYLATE 5 MG TABLET PO SCH (11:04)
[2017-12-17] MEDS: FERROUS SULFATE 325 MG TABLET. PO SCH ×2 (11:04→17:55)
[2017-12-17] MEDS: hydroCHLOROthiazide 25 MG TABLET PO SCH (11:04)
[2017-12-17] MEDS: VALPROATE ACID 250 MG/5 ML ORAL SOLUTION PO SCH ×2 (11:04→20:25)
[2017-12-17 16:50] VITALS: BP 109/62
[2017-12-17] MEDS: traZODone 100 MG TABLET. PO SCH (20:25)
[2017-12-17] MEDS: ATORVASTATIN CALCIUM 10 MG TABLET. PO SCH (20:25)
--- NOTE | 2017-12-17 20:57 | PDOC ---
Exam Note: José Miguel Note: Please also refer to the separate dictated note~for this date of service dictated separately.~Patient seen individually. Discussed the patient with Nursing staff reviewed the chart.~Reviewed interim history and current functioning. Reviewed vital signs,~Labs/ Radiology~and current medications noted below. Continue current treatment with the changes noted in the dictated addendum note Assessment: Vital Signs: Vital Signs Date Time Temp Pulse Resp B/P (MAP) Pulse Ox O2 Delivery O2 Flow Rate FiO2 12/17/17 16:50 97.3 80 22 109/62 (78) 94 12/17/17 13:00 Room Air I&O Intake and Output 12/17/17 07:00 Intake Total 480 ml Balance 480 ml Intake Oral 480 ml # Bowel Movements 1 Labs: Laboratory Tests Test 12/17/17 07:54 Glucose (Fingerstick) 87 mg/dL (70-99) Current Medications: Meds: Current Medications Acetaminophen (Tylenol) 650 mg PRN Q6HRS PRN PO PAIN / TEMP; Start 12/10/17 at 05:00; Stop 12/11/17 at 16:16; Status DC Multi-Ingredient Ointment (Analgesic [place]) 1 van PRN QID PRN TP MUSCLE PAIN; Start 12/10/17 at 05:00 Al Hydroxide/Mg Hydroxide (Mylanta Plus Xs) 15 ml PRN AFTMEALHC PRN PO DYSPEPSIA; Start 12/10/17 at 05:00; Stop 12/11/17 at 16:16; Status DC Magnesium Hydroxide (Milk Of Magnesia) 2,400 mg PRN QHS PRN PO CONSTIPATION; Start 12/10/17 at 05:00; Stop 12/11/17 at 16:16; Status DC Acetaminophen (Tylenol) 650 mg PRN Q4HRS PRN PO PAIN / TEMP; Start 12/10/17 at 05:30 Amlodipine Besylate (Norvasc) 5 mg DAILY PO Last administered on 12/17/17at 11:04 ; Start 12/10/17 at 09:00 Atorvastatin Calcium (Lipitor) 10 mg QHS PO Last administered on 12/17/17at 20:25 ; Start 12/10/17 at 21:00 Bismuth Subsalicylate (Pepto-Bismol) 262 mg PRN Q4HRS PRN PO DYSPEPSIA; Start 12/10/17 at 05:30 Ferrous Sulfate (Feosol) 325 mg BIDAFTMEAL PO Last administered on 12/17/17 17: 55; Start 12/10/17 at 09:00 Gabapentin (Neurontin) 300 mg DAILY PO Last administered on 12/17/17 11:02; Start 12/10/17 at 09:00 Acetaminophen/ Hydrocodone Bitart (Lortab 5/325) 1 tab TID PRN PO PAIN Last administered on 12/17/17 11:03; Start 12/10/17 at 05:30 Al Hydroxide/Mg Hydroxide (Mylanta Plus Xs) 30 ml PRN Q4HRS PRN PO DYSPEPSIA; Start 12/10/17 at 05:30 Timolol Maleate (Timoptic 0.5% [facility]) 1 drop DAILY OU Last administered on 12/11 10:58; Start 12/10/17 at 09:00 Vitamin D (Vitamin D3) 50,000 unit WEEKLY PO Last administered on 12/12/17 18: 14; Start 12/12/17 at 09:00 Hydrochlorothiazide (Hydrodiuril) 25 mg DAILY PO Last administered on 12/17/17 11:04; Start 12/10/17 at 09:00 Loperamide HCl (Imodium) 2 mg PRN Q2HR PRN PO DIARRHEA; Start 12/10/17 at 05:30 Magnesium Hydroxide (Milk Of Magnesia) 2,400 mg PRN DAILY PRN PO CONSTIPATION; Start 12/10/17 at 05:30 Metformin HCl (Glucophage) 1,000 mg BIDWMEALS PO Last administered on 12/17/17 17:55; Start 12/10/17 at 08:00 Potassium Chloride (Klor-Con) 10 meq BIDWMEALS PO Last administered on 18:05; Start 12/10/17 at 08:00 Linagliptin (Tradjenta) 5 mg DAILY06 PO Last administered on 12/17/17 05:50; Start 12/10/17 at 06:00 Non-Formulary Medication (Solifenacin Succinate (Vesicare)) 5 mg DAILY PO ; Start 12/10/17 at 09:00; Stop 12/10/17 at 09:00; Status DC Oxybutynin Chloride (Ditropan) 5 mg BID PO Last administered on 12/17/17 20:25 ; Start 12/10/17 at 09:00 Benztropine Mesylate (Cogentin) 1 mg DAILY PO Last administered on 12/17/17 11: 02; Start 12/10/17 at 11:00 Olanzapine (ZyPREXA ZYDIS) 2.5 mg PRN Q2HR PRN PO PSYCHOSIS Last administered on 12/10/17 11:04; Start 12/10/17 at 10:45; Stop 12/10/17 at 11:26; Status DC Olanzapine (ZyPREXA ZYDIS) 5 mg PRN Q2HR PRN PO PSYCHOSIS Last administered on 12/16/17 18:36; Start 12/10/17 at 11:30 Lorazepam (Ativan) 0.5 mg PRN Q2HR PRN PO ANXIETY / AGITATION Last administered on 12/16/17 07:54; Start 12/10/17 at 11:30 Valproic Acid (Depakene) 500 mg QHS PO ; Start 12/10/17 at 21:00; Stop 12/11/17 at 18:46; Status DC Haloperidol Lactate (Haldol) 5 mg DAILY IM Last administered on 12/12/17at 19:42 ; Start 12/11/17 at 03:15; Stop 12/13/17 at 05:13; Status DC Lorazepam (Ativan) 1 mg DAILY IM Last administered on 12/12/17 21:12; Start at 03:15; Stop 12/14/17 at 18:47; Status DC Valproic Acid (Depakene) 500 mg QHS PO Last administered on 12/12/17at 19:15; Start 12/11/17 at 21:00; Stop 12/13/17 at 15:44; Status DC Trazodone HCl (Desyrel) 100 mg QHS PO Last administered on 12/17/17 20:25; Start 12/12/17 at 21:00 Trazodone HCl (Desyrel) 100 mg PRN QHS PRN PO INSOMNIA; Start 12/12/17 at 20:00 Haloperidol (Haldol) 10 mg DAILY PO Last administered on 12/15/17at 10:34; Start 12/13/17 at 09:00; Stop 12/15/17 at 19:17; Status DC Valproic Acid (Depakene) 500 mg BID PO Last administered on 12/17/17at 20:25; Start 12/13/17 at 16:00 Haloperidol (Haldol) 15 mg DAILY PO Last administered on 12/17/17at 11:02; Start 12/16/17 at 09:00 Active Scripts Active Reported Benztropine Mesylate 1 Mg Tablet 1 Mg PO DAILY Atorvastatin Calcium 10 Mg Tablet 10 Mg PO QHS Amlodipine Besylate 5 Mg Tablet 5 Mg PO DAILY Januvia (Sitagliptin Phosphate) 100 Mg Tablet 100 Mg PO DAILY06 Potassium Chloride 10 Meq Tablet.er 10 Meq PO BID Metformin Hcl 1,000 Mg Tablet 1,000 Mg PO BID Hydrocodone-Apap 5-325 (Hydrocodone Bit/Acetaminophen) 1 Each Tablet 1 Tab PO TID PRN Hydrochlorothiazide Tablet (Hydrochlorothiazide) 12.5 Mg Tablet 25 Mg PO DAILY Gabapentin 300 Mg Capsule 300 Mg PO DAILY Ferrous Sulfate 325 Mg Tablet 325 Mg PO BID Vitamin D2 (Ergocalciferol (Vitamin D2)) 50,000 Unit Capsule 50,000 Unit PO QFR Vesicare (Solifenacin Succinate) 5 Mg Tablet 5 Mg PO DAILY Timoptic (Timolol Maleate) 10 Ml Drops 1 Ml OU DAILY Milk Of Magnesia (Magnesium Hydroxide) 2,400 Mg/10 Ml Oral.susp 2,400 Mg PO PRN DAILY PRN Maalox Maximum Strength Susp (Mag Hydrox/Al Hydrox/Simeth) 355 Ml Oral.susp 30 Ml PO PRN Q4HRS PRN Loperamide (Loperamide Hcl) 2 Mg Tablet 2 Mg PO PRN Q2HR PRN Bismatrol (Bismuth Subsalicylate) 262 Mg/15 Ml Oral.susp 262 Mg PO PRN Q4HRS PRN Tylenol (Acetaminophen) 325 Mg Tablet 650 Mg PO PRN Q4HRS PRN Zyprexa Zydis (Olanzapine) 5 Mg Tab.rapdis 2.5 Mg PO PRN Q2HR PRN Haldol Decanoate 100 (Haloperidol Decanoate) 100 Mg/1 Ml Ampul 50 Mg IM [id number] Invega Sustenna (Paliperidone Palmitate) 234 Mg/1.5 Ml Disp.syrin 234 Mg IM QMONTH I have reviewed the current psychotropics carefully including drug interactions. Risk benefit ratio favors no change other than as noted in my dictated progress note. Diagnosis: Problems: (1) Anxiety disorder (2) Bipolar affective, mixed, sev w/ psych (3) Dementia in Alzheimer's disease with delusions (4) Dementia in Alzheimer's disease with depression (5) Dementia, vascular, with delusions (6) Impulse control disorder (7) Schizoaffective disorder, chronic condition with acute exacerbation (8) Schizoaffective disorder DOMENIC BRUNSON MD December 17, 2017 20:57
--- NOTE | 2017-12-17 23:22 | PN ---
DATE: 12/16/2017 This is a late entry for 12/16/2017 covers elements not covered in my initial note of 12/16/2017. SUBJECTIVE: I met with the patient in the evening. The patient slept just 1-1/2 hours previous evening, was quite agitated in the morning, intermittently psychotic. Complains of foot pain, received Ativan and Zyprexa, resistive to labs. Valproic acid level therapeutic at 77. REVIEW OF SYSTEMS: No CV, , pulmonary, eye system symptoms on review. MENTAL STATUS EXAM: Oriented to herself. Insight, judgment, recent memory is impaired. Language function intact. Attention span short. Mood and affect still labile, showing improvement. LABORATORY DATA: Reviewed. IMPRESSION: Schizoaffective disorder, bipolar type, mixed with psychotic features. PLAN: Continue current psychotropics. Haldol was increased to 15 mg p.o. daily, Depakene 500 b.i.d., level therapeutic is noted. DOMENIC BRUNSON MD DR: LACEY/mamadou JOB#: [id number] / [id number]
[2017-12-18 05:40] VITALS: BP 125/59
[2017-12-18] MEDS: LINAGLIPTIN 5 MG TABLET PO SCH (05:44)
[2017-12-18] MEDS: TIMOLOL 0.5% OPHTH SOLUTION 5ML BOTTLE. OU SCH (09:00)
[2017-12-18] MEDS: VALPROATE ACID 250 MG/5 ML ORAL SOLUTION PO SCH ×2 (10:34→20:05)
[2017-12-18] MEDS: GABAPENTIN 300 MG CAPSULE. PO SCH (10:34)
[2017-12-18] MEDS: FERROUS SULFATE 325 MG TABLET. PO SCH ×2 (10:34→16:20)
[2017-12-18] MEDS: POTASSIUM CHLORIDE 10 MEQ TABLET.ER. PO SCH ×2 (10:35→16:20)
[2017-12-18] MEDS: metFORMIN 500 MG TABLET PO SCH ×2 (10:35→16:20)
[2017-12-18] MEDS: OXYBUTYNIN CHLORIDE 5 MG TABLET PO SCH ×2 (10:35→20:05)
[2017-12-18] MEDS: hydroCHLOROthiazide 25 MG TABLET PO SCH (10:35)
[2017-12-18] MEDS: BENZTROPINE MESYLATE 1 MG TABLET PO SCH (10:36)
[2017-12-18] MEDS: amLODIPine BESYLATE 5 MG TABLET PO SCH (10:36)
[2017-12-18] MEDS: HALOPERIDOL 5 MG TABLET PO SCH (10:38)
[2017-12-18] MEDS ORDERED: HALOPERIDOL DECANOATE IM ER 50 MG/ML VIAL. IM ONE (13:30)
[2017-12-18] MEDS: traZODone 100 MG TABLET. PO SCH (20:05)
[2017-12-18] MEDS: ATORVASTATIN CALCIUM 10 MG TABLET. PO SCH (20:05)
--- NOTE | 2017-12-18 21:02 | PDOC ---
Exam Note: José Miguel Note: Please also refer to the separate dictated note~for this date of service dictated separately.~Patient seen individually. Discussed the patient with Nursing staff reviewed the chart.~Reviewed interim history and current functioning. Reviewed vital signs,~Labs/ Radiology~and current medications noted below. Continue current treatment with the changes noted in the dictated addendum note Assessment: Vital Signs: Vital Signs Date Time Temp Pulse Resp B/P (MAP) Pulse Ox O2 Delivery O2 Flow Rate FiO2 12/18/17 10:36 73 125/59 12/18/17 05:40 97.2 18 91 12/17/17 13:00 Room Air I&O Intake and Output 12/18/17 07:00 Intake Total 1080 ml Balance 1080 ml Intake Oral 1080 ml Current Medications: Meds: Current Medications Acetaminophen (Tylenol) 650 mg PRN Q6HRS PRN PO PAIN / TEMP; Start 12/10/17 at 05:00; Stop 12/11/17 at 16:16; Status DC Multi-Ingredient Ointment (Analgesic [place]) 1 van PRN QID PRN TP MUSCLE PAIN; Start 12/10/17 at 05:00 Al Hydroxide/Mg Hydroxide (Mylanta Plus Xs) 15 ml PRN AFTMEALHC PRN PO DYSPEPSIA; Start 12/10/17 at 05:00; Stop 12/11/17 at 16:16; Status DC Magnesium Hydroxide (Milk Of Magnesia) 2,400 mg PRN QHS PRN PO CONSTIPATION; Start 12/10/17 at 05:00; Stop 12/11/17 at 16:16; Status DC Acetaminophen (Tylenol) 650 mg PRN Q4HRS PRN PO PAIN / TEMP; Start 12/10/17 at 05:30 Amlodipine Besylate (Norvasc) 5 mg DAILY PO Last administered on 12/18/17at 10:36 ; Start 12/10/17 at 09:00 Atorvastatin Calcium (Lipitor) 10 mg QHS PO Last administered on 12/18/17at 20:05 ; Start 12/10/17 at 21:00 Bismuth Subsalicylate (Pepto-Bismol) 262 mg PRN Q4HRS PRN PO DYSPEPSIA; Start 12/10/17 at 05:30 Ferrous Sulfate (Feosol) 325 mg BIDAFTMEAL PO Last administered on 12/18/17 16: 20; Start 12/10/17 at 09:00 Gabapentin (Neurontin) 300 mg DAILY PO Last administered on 12/18/17 10:34; Start 12/10/17 at 09:00 Acetaminophen/ Hydrocodone Bitart (Lortab 5/325) 1 tab TID PRN PO PAIN Last administered on 12/17/17 11:03; Start 12/10/17 at 05:30 Al Hydroxide/Mg Hydroxide (Mylanta Plus Xs) 30 ml PRN Q4HRS PRN PO DYSPEPSIA; Start 12/10/17 at 05:30 Timolol Maleate (Timoptic 0.5% O[facility]) 1 drop DAILY OU Last administered on 12/11 10:58; Start 12/10/17 at 09:00 Vitamin D (Vitamin D3) 50,000 unit WEEKLY PO Last administered on 12/12/17 18: 14; Start 12/12/17 at 09:00 Hydrochlorothiazide (Hydrodiuril) 25 mg DAILY PO Last administered on 12/18/17 10:35; Start 12/10/17 at 09:00 Loperamide HCl (Imodium) 2 mg PRN Q2HR PRN PO DIARRHEA; Start 12/10/17 at 05:30 Magnesium Hydroxide (Milk Of Magnesia) 2,400 mg PRN DAILY PRN PO CONSTIPATION; Start 12/10/17 at 05:30 Metformin HCl (Glucophage) 1,000 mg BIDWMEALS PO Last administered on 12/18/17 16:20; Start 12/10/17 at 08:00 Potassium Chloride (Klor-Con) 10 meq BIDWMEALS PO Last administered on 16:20; Start 12/10/17 at 08:00 Linagliptin (Tradjenta) 5 mg DAILY06 PO Last administered on 12/18/17 05:44; Start 12/10/17 at 06:00 Non-Formulary Medication (Solifenacin Succinate (Vesicare)) 5 mg DAILY PO ; Start 12/10/17 at 09:00; Stop 12/10/17 at 09:00; Status DC Oxybutynin Chloride (Ditropan) 5 mg BID PO Last administered on 12/18/17 20:05 ; Start 12/10/17 at 09:00 Benztropine Mesylate (Cogentin) 1 mg DAILY PO Last administered on 12/18/17 10: 36; Start 12/10/17 at 11:00 Olanzapine (ZyPREXA ZYDIS) 2.5 mg PRN Q2HR PRN PO PSYCHOSIS Last administered on 12/10/17 11:04; Start 12/10/17 at 10:45; Stop 12/10/17 at 11:26; Status DC Olanzapine (ZyPREXA ZYDIS) 5 mg PRN Q2HR PRN PO PSYCHOSIS Last administered on 12/16/17at 18:36; Start 12/10/17 at 11:30 Lorazepam (Ativan) 0.5 mg PRN Q2HR PRN PO ANXIETY / AGITATION Last administered on 12/16/17 07:54; Start 12/10/17 at 11:30 Valproic Acid (Depakene) 500 mg QHS PO ; Start 12/10/17 at 21:00; Stop 12/11/17 at 18:46; Status DC Haloperidol Lactate (Haldol) 5 mg DAILY IM Last administered on 12/12/17at 19:42 ; Start 12/11/17 at 03:15; Stop 12/13/17 at 05:13; Status DC Lorazepam (Ativan) 1 mg DAILY IM Last administered on 12/12/17at 21:12; Start at 03:15; Stop 12/14/17 at 18:47; Status DC Valproic Acid (Depakene) 500 mg QHS PO Last administered on 12/12/17 19:15; Start 12/11/17 at 21:00; Stop 12/13/17 at 15:44; Status DC Trazodone HCl (Desyrel) 100 mg QHS PO Last administered on 12/18/17 20:05; Start 12/12/17 at 21:00 Trazodone HCl (Desyrel) 100 mg PRN QHS PRN PO INSOMNIA; Start 12/12/17 at 20:00 Haloperidol (Haldol) 10 mg DAILY PO Last administered on 12/15/17at 10:34; Start 12/13/17 at 09:00; Stop 12/15/17 at 19:17; Status DC Valproic Acid (Depakene) 500 mg BID PO Last administered on 5/3/18at 20:05; Start 12/13/17 at 16:00 Haloperidol (Haldol) 15 mg DAILY PO Last administered on 12/18/17at 10:38; Start 12/16/17 at 09:00; Stop 12/22/17 at 10:00 Haloperidol Decanoate (Haldol Decanoate Im Extended Release) 100 mg 1X ONCE IM Last administered on 12/18/17at 15:09; Start 12/18/17 at 13:30; Stop 12/18/17 at 13:34; Status DC Haloperidol (Haldol) 10 mg DAILY PO ; Start 12/23/17 at 09:00 Active Scripts Active Reported Benztropine Mesylate 1 Mg Tablet 1 Mg PO DAILY Atorvastatin Calcium 10 Mg Tablet 10 Mg PO QHS Amlodipine Besylate 5 Mg Tablet 5 Mg PO DAILY Januvia (Sitagliptin Phosphate) 100 Mg Tablet 100 Mg PO DAILY06 Potassium Chloride 10 Meq Tablet.er 10 Meq PO BID Metformin Hcl 1,000 Mg Tablet 1,000 Mg PO BID Hydrocodone-Apap 5-325 (Hydrocodone Bit/Acetaminophen) 1 Each Tablet 1 Tab PO TID PRN Hydrochlorothiazide Tablet (Hydrochlorothiazide) 12.5 Mg Tablet 25 Mg PO DAILY Gabapentin 300 Mg Capsule 300 Mg PO DAILY Ferrous Sulfate 325 Mg Tablet 325 Mg PO BID Vitamin D2 (Ergocalciferol (Vitamin D2)) 50,000 Unit Capsule 50,000 Unit PO QFR Vesicare (Solifenacin Succinate) 5 Mg Tablet 5 Mg PO DAILY Timoptic (Timolol Maleate) 10 Ml Drops 1 Ml OU DAILY Milk Of Magnesia (Magnesium Hydroxide) 2,400 Mg/10 Ml Oral.susp 2,400 Mg PO PRN DAILY PRN Maalox Maximum Strength Susp (Mag Hydrox/Al Hydrox/Simeth) 355 Ml Oral.susp 30 Ml PO PRN Q4HRS PRN Loperamide (Loperamide Hcl) 2 Mg Tablet 2 Mg PO PRN Q2HR PRN Bismatrol (Bismuth Subsalicylate) 262 Mg/15 Ml Oral.susp 262 Mg PO PRN Q4HRS PRN Tylenol (Acetaminophen) 325 Mg Tablet 650 Mg PO PRN Q4HRS PRN Zyprexa Zydis (Olanzapine) 5 Mg Tab.rapdis 2.5 Mg PO PRN Q2HR PRN Haldol Decanoate 100 (Haloperidol Decanoate) 100 Mg/1 Ml Ampul 50 Mg IM [id number] Invega Sustenna (Paliperidone Palmitate) 234 Mg/1.5 Ml Disp.syrin 234 Mg IM QMONTH I have reviewed the current psychotropics carefully including drug interactions. Risk benefit ratio favors no change other than as noted in my dictated progress note. Diagnosis: Problems: (1) Anxiety disorder (2) Bipolar affective, mixed, sev w/ psych (3) Dementia in Alzheimer's disease with delusions (4) Dementia in Alzheimer's disease with depression (5) Dementia, vascular, with delusions (6) Impulse control disorder (7) Schizoaffective disorder, chronic condition with acute exacerbation (8) Schizoaffective disorder DOMENIC BRUNSON MD December 18, 2017 21:02
[2017-12-19] MEDS: LINAGLIPTIN 5 MG TABLET PO SCH (06:05)
[2017-12-19] MEDS: hydroCHLOROthiazide 25 MG TABLET PO SCH (07:49)
[2017-12-19] MEDS: HYDROcodone/APAP 5/325MG 1 TAB TABLET PO PRN ×2 (07:49→19:31)
[2017-12-19] MEDS: amLODIPine BESYLATE 5 MG TABLET PO SCH (07:50)
[2017-12-19] MEDS: HALOPERIDOL 5 MG TABLET PO SCH (07:50)
[2017-12-19] MEDS: POTASSIUM CHLORIDE 10 MEQ TABLET.ER. PO SCH ×2 (07:50→17:28)
[2017-12-19] MEDS: metFORMIN 500 MG TABLET PO SCH ×2 (07:50→17:27)
[2017-12-19] MEDS: OXYBUTYNIN CHLORIDE 5 MG TABLET PO SCH ×2 (07:50→19:31)
[2017-12-19] MEDS: GABAPENTIN 300 MG CAPSULE. PO SCH (07:51)
[2017-12-19] MEDS: FERROUS SULFATE 325 MG TABLET. PO SCH ×2 (07:51→17:28)
[2017-12-19] MEDS: VALPROATE ACID 250 MG/5 ML ORAL SOLUTION PO SCH ×3 (07:51→19:31)
[2017-12-19] MEDS: BENZTROPINE MESYLATE 1 MG TABLET PO SCH (07:51)
[2017-12-19] MEDS: CHOLECALCIFEROL (VITAMIN D3) 50,000 UNIT CAPSULE PO SCH (07:53)
[2017-12-19] MEDS: TIMOLOL 0.5% OPHTH SOLUTION 5ML BOTTLE. OU SCH ×2 (07:54→09:00)
[2017-12-19 15:55] VITALS: BP 116/69
[2017-12-19] MEDS: ATORVASTATIN CALCIUM 10 MG TABLET. PO SCH (19:31)
[2017-12-19] MEDS: traZODone 100 MG TABLET. PO SCH (19:31)
[2017-12-19] MEDS: traZODone 150 MG TABLET. PO SCH ×2 (21:00→23:29)
--- NOTE | 2017-12-19 21:05 | PDOC ---
Exam Note: José Miguel Note: Please also refer to the separate dictated note~for this date of service dictated separately.~Patient seen individually. Discussed the patient with Nursing staff reviewed the chart.~Reviewed interim history and current functioning. Reviewed vital signs,~Labs/ Radiology~and current medications noted below. Continue current treatment with the changes noted in the dictated addendum note Assessment: Vital Signs: Vital Signs Date Time Temp Pulse Resp B/P (MAP) Pulse Ox O2 Delivery O2 Flow Rate FiO2 12/19/17 19:31 22 12/19/17 15:55 97.0 83 116/69 (85) 94 12/17/17 13:00 Room Air I&O Intake and Output 12/19/17 07:00 Intake Total 600 ml Balance 600 ml Intake Oral 600 ml Labs: Laboratory Tests Test 12/19/17 07:46 Glucose (Fingerstick) 94 mg/dL (70-99) Current Medications: Meds: Current Medications Acetaminophen (Tylenol) 650 mg PRN Q6HRS PRN PO PAIN / TEMP; Start 12/10/17 at 05:00; Stop 12/11/17 at 16:16; Status DC Multi-Ingredient Ointment (Analgesic [place]) 1 van PRN QID PRN TP MUSCLE PAIN; Start 12/10/17 at 05:00 Al Hydroxide/Mg Hydroxide (Mylanta Plus Xs) 15 ml PRN AFTMEALHC PRN PO DYSPEPSIA; Start 12/10/17 at 05:00; Stop 12/11/17 at 16:16; Status DC Magnesium Hydroxide (Milk Of Magnesia) 2,400 mg PRN QHS PRN PO CONSTIPATION; Start 12/10/17 at 05:00; Stop 12/11/17 at 16:16; Status DC Acetaminophen (Tylenol) 650 mg PRN Q4HRS PRN PO PAIN / TEMP; Start 12/10/17 at 05:30 Amlodipine Besylate (Norvasc) 5 mg DAILY PO Last administered on 12/19/17at 07:50 ; Start 12/10/17 at 09:00 Atorvastatin Calcium (Lipitor) 10 mg QHS PO Last administered on 12/19/17at 19:31 ; Start 12/10/17 at 21:00 Bismuth Subsalicylate (Pepto-Bismol) 262 mg PRN Q4HRS PRN PO DYSPEPSIA; Start 12/10/17 at 05:30 Ferrous Sulfate (Feosol) 325 mg BIDAFTMEAL PO Last administered on 12/19/17 17: 28; Start 12/10/17 at 09:00 Gabapentin (Neurontin) 300 mg DAILY PO Last administered on 12/19/17 07:51; Start 12/10/17 at 09:00 Acetaminophen/ Hydrocodone Bitart (Lortab 5/325) 1 tab TID PRN PO PAIN Last administered on 12/19/17 19:31; Start 12/10/17 at 05:30 Al Hydroxide/Mg Hydroxide (Mylanta Plus Xs) 30 ml PRN Q4HRS PRN PO DYSPEPSIA; Start 12/10/17 at 05:30 Timolol Maleate (Timoptic 0.5% [facility]) 1 drop DAILY OU Last administered on 12/11 10:58; Start 12/10/17 at 09:00 Vitamin D (Vitamin D3) 50,000 unit WEEKLY PO Last administered on 12/19/17 07: 53; Start 12/12/17 at 09:00 Hydrochlorothiazide (Hydrodiuril) 25 mg DAILY PO Last administered on 12/19/17 07:49; Start 12/10/17 at 09:00 Loperamide HCl (Imodium) 2 mg PRN Q2HR PRN PO DIARRHEA; Start 12/10/17 at 05:30 Magnesium Hydroxide (Milk Of Magnesia) 2,400 mg PRN DAILY PRN PO CONSTIPATION; Start 12/10/17 at 05:30 Metformin HCl (Glucophage) 1,000 mg BIDWMEALS PO Last administered on 12/19/17 17:27; Start 12/10/17 at 08:00 Potassium Chloride (Klor-Con) 10 meq BIDWMEALS PO Last administered on 17:28; Start 12/10/17 at 08:00 Linagliptin (Tradjenta) 5 mg DAILY06 PO Last administered on 12/19/17 06:05; Start 12/10/17 at 06:00 Non-Formulary Medication (Solifenacin Succinate (Vesicare)) 5 mg DAILY PO ; Start 12/10/17 at 09:00; Stop 12/10/17 at 09:00; Status DC Oxybutynin Chloride (Ditropan) 5 mg BID PO Last administered on 12/19/17 19:31 ; Start 12/10/17 at 09:00 Benztropine Mesylate (Cogentin) 1 mg DAILY PO Last administered on 12/19/17 07: 51; Start 12/10/17 at 11:00 Olanzapine (ZyPREXA ZYDIS) 2.5 mg PRN Q2HR PRN PO PSYCHOSIS Last administered on 12/10/17 11:04; Start 12/10/17 at 10:45; Stop 12/10/17 at 11:26; Status DC Olanzapine (ZyPREXA ZYDIS) 5 mg PRN Q2HR PRN PO PSYCHOSIS Last administered on 12/19/17 11:00; Start 12/10/17 at 11:30 Lorazepam (Ativan) 0.5 mg PRN Q2HR PRN PO ANXIETY / AGITATION Last administered on 12/16/17 07:54; Start 12/10/17 at 11:30 Valproic Acid (Depakene) 500 mg QHS PO ; Start 12/10/17 at 21:00; Stop 12/11/17 at 18:46; Status DC Haloperidol Lactate (Haldol) 5 mg DAILY IM Last administered on 12/12/17 19:42 ; Start 12/11/17 at 03:15; Stop 12/13/17 at 05:13; Status DC Lorazepam (Ativan) 1 mg DAILY IM Last administered on 12/12/17 21:12; Start at 03:15; Stop 12/14/17 at 18:47; Status DC Valproic Acid (Depakene) 500 mg QHS PO Last administered on 12/12/17at 19:15; Start 12/11/17 at 21:00; Stop 12/13/17 at 15:44; Status DC Trazodone HCl (Desyrel) 100 mg QHS PO Last administered on 12/19/17 19:31; Start 12/12/17 at 21:00; Stop 12/19/17 at 19:37; Status DC Trazodone HCl (Desyrel) 100 mg PRN QHS PRN PO INSOMNIA; Start 12/12/17 at 20:00 Haloperidol (Haldol) 10 mg DAILY PO Last administered on 12/15/17at 10:34; Start 12/13/17 at 09:00; Stop 12/15/17 at 19:17; Status DC Valproic Acid (Depakene) 500 mg BID PO Last administered on 12/19/17at 19:31; Start 12/13/17 at 16:00 Haloperidol (Haldol) 15 mg DAILY PO Last administered on 12/19/17at 07:50; Start 12/16/17 at 09:00; Stop 12/22/17 at 10:00 Haloperidol Decanoate (Haldol Decanoate Im Extended Release) 100 mg 1X ONCE IM Last administered on 12/18/17at 15:09; Start 12/18/17 at 13:30; Stop 12/18/17 at 13:34; Status DC Haloperidol (Haldol) 10 mg DAILY PO ; Start 12/23/17 at 09:00 Trazodone HCl (Desyrel) 150 mg QHS PO ; Start 12/19/17 at 21:00 Active Scripts Active Reported Benztropine Mesylate 1 Mg Tablet 1 Mg PO DAILY Atorvastatin Calcium 10 Mg Tablet 10 Mg PO QHS Amlodipine Besylate 5 Mg Tablet 5 Mg PO DAILY Januvia (Sitagliptin Phosphate) 100 Mg Tablet 100 Mg PO DAILY06 Potassium Chloride 10 Meq Tablet.er 10 Meq PO BID Metformin Hcl 1,000 Mg Tablet 1,000 Mg PO BID Hydrocodone-Apap 5-325 (Hydrocodone Bit/Acetaminophen) 1 Each Tablet 1 Tab PO TID PRN Hydrochlorothiazide Tablet (Hydrochlorothiazide) 12.5 Mg Tablet 25 Mg PO DAILY Gabapentin 300 Mg Capsule 300 Mg PO DAILY Ferrous Sulfate 325 Mg Tablet 325 Mg PO BID Vitamin D2 (Ergocalciferol (Vitamin D2)) 50,000 Unit Capsule 50,000 Unit PO QFR Vesicare (Solifenacin Succinate) 5 Mg Tablet 5 Mg PO DAILY Timoptic (Timolol Maleate) 10 Ml Drops 1 Ml OU DAILY Milk Of Magnesia (Magnesium Hydroxide) 2,400 Mg/10 Ml Oral.susp 2,400 Mg PO PRN DAILY PRN Maalox Maximum Strength Susp (Mag Hydrox/Al Hydrox/Simeth) 355 Ml Oral.susp 30 Ml PO PRN Q4HRS PRN Loperamide (Loperamide Hcl) 2 Mg Tablet 2 Mg PO PRN Q2HR PRN Bismatrol (Bismuth Subsalicylate) 262 Mg/15 Ml Oral.susp 262 Mg PO PRN Q4HRS PRN Tylenol (Acetaminophen) 325 Mg Tablet 650 Mg PO PRN Q4HRS PRN Zyprexa Zydis (Olanzapine) 5 Mg Tab.rapdis 2.5 Mg PO PRN Q2HR PRN Haldol Decanoate 100 (Haloperidol Decanoate) 100 Mg/1 Ml Ampul 50 Mg IM [id number] Invega Sustenna (Paliperidone Palmitate) 234 Mg/1.5 Ml Disp.syrin 234 Mg IM QMONTH I have reviewed the current psychotropics carefully including drug interactions. Risk benefit ratio favors no change other than as noted in my dictated progress note. Diagnosis: Problems: (1) Anxiety disorder (2) Bipolar affective, mixed, sev w/ psych (3) Dementia in Alzheimer's disease with delusions (4) Dementia in Alzheimer's disease with depression (5) Dementia, vascular, with delusions (6) Impulse control disorder (7) Schizoaffective disorder, chronic condition with acute exacerbation (8) Schizoaffective disorder DOMENIC BRUNSON MD December 19, 2017 21:05
[2017-12-19] MEDS ORDERED: traZODone 50 MG TABLET. PO ONE (21:30)
--- NOTE | 2017-12-20 04:29 | PN ---
DATE: 12/17/2017 PSYCHIATRIC PROGRESS NOTE This late entry 12/17/2017 covers elements not covered in my initial note 12/17/2017. SUBJECTIVE: I met with the patient in the evening. The patient slept 8-3/4 hours previous evening, had a better day, still psychotic, disorganized, but less so than before. No PRNs were noted. At times, she refuses her psychotropics. REVIEW OF SYSTEMS: No CV, , pulmonary, eye, ENT system symptoms on review. Reliability poor. MENTAL STATUS EXAM: Oriented to herself and at times situation. Speech is coherent, rapid at times. Abstraction fair, computation impaired, language function intact, attention span short. Mood and affect still labile, but improved. LABORATORIES: Reviewed. IMPRESSION: Schizoaffective disorder, bipolar type, mixed with psychotic features. PLAN: Continue current psychotropics. Encourage compliance with oral medications, may consider changing the oral Haldol to Haldol decanoate. DOMENIC BRUNSON MD DR: LACEY/mamadou JOB#: [id number] / [id number]
[2017-12-20] MEDS: LINAGLIPTIN 5 MG TABLET PO SCH (05:32)
[2017-12-20 06:20] VITALS: BP 122/66
[2017-12-20] MEDS: HALOPERIDOL 5 MG TABLET PO SCH (07:48)
[2017-12-20] MEDS: HYDROcodone/APAP 5/325MG 1 TAB TABLET PO PRN (07:49)
[2017-12-20] MEDS: amLODIPine BESYLATE 5 MG TABLET PO SCH (07:49)
[2017-12-20] MEDS: metFORMIN 500 MG TABLET PO SCH ×2 (07:49→17:00)
[2017-12-20] MEDS: GABAPENTIN 300 MG CAPSULE. PO SCH (07:49)
[2017-12-20] MEDS: FERROUS SULFATE 325 MG TABLET. PO SCH ×2 (07:49→17:43)
[2017-12-20] MEDS: BENZTROPINE MESYLATE 1 MG TABLET PO SCH (07:49)
[2017-12-20] MEDS: POTASSIUM CHLORIDE 10 MEQ TABLET.ER. PO SCH (07:49)
[2017-12-20] MEDS: OXYBUTYNIN CHLORIDE 5 MG TABLET PO SCH ×2 (07:50→19:46)
[2017-12-20] MEDS: hydroCHLOROthiazide 25 MG TABLET PO SCH (07:50)
[2017-12-20] MEDS: VALPROATE ACID 250 MG/5 ML ORAL SOLUTION PO SCH ×2 (07:50→19:45)
[2017-12-20] MEDS: TIMOLOL 0.5% OPHTH SOLUTION 5ML BOTTLE. OU SCH (07:51)
[2017-12-20 11:10] LABS: ALBUMIN 3.6 g/dL (3.4-5.0); ALBUMIN/GLOBULIN RATIO 0.9 (1.0-1.7); CALCIUM 9.1 mg/dL (8.5-10.1); CREATININE 0.9 mg/dL (0.6-1.0); GFR 63.2; POTASSIUM 3.4 mmol/L (3.5-5.1); TOTAL BILIRUBIN 0.2 mg/dL (0.2-1.0); TOTAL PROTEIN 7.5 g/dL (6.4-8.2)
[2017-12-20 11:16] LABS: BASO % 1 % (0-3); EOS # 0.1 x10^3/uL (0.0-0.7); EOS % 2 % (0-3); HEMATOCRIT 40.5 % (36.0-47.0); HEMOGLOBIN 13.3 g/dL (12.0-15.5); LYMPH # 1.7 x10^3/uL (1.0-4.8); LYMPH % 31 % (24-48); MEAN CORPUSCULAR HEMOGLOBIN 28 pg (25-35); MEAN CORPUSCULAR HGB CONC 33 g/dL (31-37); MEAN CORPUSCULAR VOLUME 85 fL (79-100); MONO # 0.4 x10^3/uL (0.0-1.1); MONO % 7 % (0-9); NEUT # 3.4 x10^3uL (1.8-7.7); NEUT % 60 % (31-73); PLATELET COUNT 259 x10^3/uL (140-400); RED BLOOD COUNT 4.75 x10^6/uL (3.50-5.40); WHITE BLOOD COUNT 5.6 x10^3/uL (4.0-11.0)
[2017-12-20 16:54] VITALS: BP 109/76
--- NOTE | 2017-12-20 17:29 | PN ---
DATE: 12/18/2017 This is a late entry 12/18, covers elements not covered in my initial note. SUBJECTIVE: The patient was staffed at treatment team meeting with the entire team in the morning, seen individually in the evening. She remains quite disorganized, labile in her mood, psychotic, even though overall is better than before. Oral psychotropics are relatively ineffective when she is intermittently noncompliant. REVIEW OF SYSTEMS: No CV, , pulmonary, eye, ENT system symptoms on review. MENTAL STATUS EXAM: Oriented to herself and situation. Speech coherent, pressured. Abstraction fair, computation impaired, language function intact, still somewhat paranoid, delusional, takes her medications and milk and ice cream. IMPRESSION: Unchanged from initial note. PLAN: Start Haldol Decanoate 100 mg IM q. monthly and may add another 50 mg dosage. Continue oral psychotropics, Depakene, Haldol and we will gradually reduce the oral over time. DOMENIC BRUNSON MD DR: LACEY/mamadou JOB#: [id number] / [id number]
[2017-12-20] MEDS ORDERED: traZODone 100 MG TABLET. PO SCH (18:15)
[2017-12-20] MEDS: ATORVASTATIN CALCIUM 10 MG TABLET. PO SCH (19:46)
[2017-12-20] MEDS: traZODone 100 MG TABLET. PO SCH (19:50)
--- NOTE | 2017-12-20 23:02 | PDOC ---
Exam Note: José Miguel Note: Please also refer to the separate dictated note~for this date of service dictated separately.~Patient seen individually. Discussed the patient with Nursing staff reviewed the chart.~Reviewed interim history and current functioning. Reviewed vital signs,~Labs/ Radiology~and current medications noted below. Continue current treatment with the changes noted in the dictated addendum note Assessment: Vital Signs: Vital Signs Date Time Temp Pulse Resp B/P (MAP) Pulse Ox O2 Delivery O2 Flow Rate FiO2 12/20/17 21:16 97 12/20/17 16:54 96.2 75 18 109/76 (87) 12/17/17 13:00 Room Air I&O Intake and Output 12/20/17 07:00 Intake Total 720 ml Balance 720 ml Intake Oral 720 ml Labs: Laboratory Tests Test 12/20/17 07:50 12/20/17 10:17 Glucose (Fingerstick) 125 mg/dL (70-99) H White Blood Count 5.6 x10^3/uL (4.0-11.0) Red Blood Count 4.75 x10^6/uL (3.50-5.40) Hemoglobin 13.3 g/dL (12.0-15.5) Hematocrit 40.5 % (36.0-47.0) Mean Corpuscular Volume 85 fL (79-100) Mean Corpuscular Hemoglobin 28 pg (25-35) Mean Corpuscular Hemoglobin Concent 33 g/dL (31-37) Red Cell Distribution Width 15.0 % (11.5-14.5) H Platelet Count 259 x10^3/uL (140-400) Neutrophils (%) (Auto) 60 % (31-73) Lymphocytes (%) (Auto) 31 % (24-48) Monocytes (%) (Auto) 7 % (0-9) Eosinophils (%) (Auto) 2 % (0-3) Basophils (%) (Auto) 1 % (0-3) Neutrophils # (Auto) 3.4 x10^3uL (1.8-7.7) Lymphocytes # (Auto) 1.7 x10^3/uL (1.0-4.8) Monocytes # (Auto) 0.4 x10^3/uL (0.0-1.1) Eosinophils # (Auto) 0.1 x10^3/uL (0.0-0.7) Basophils # (Auto) 0.0 x10^3/uL (0.0-0.2) Sodium Level 140 mmol/L (136-145) Potassium Level 3.4 mmol/L (3.5-5.1) L Chloride Level 100 mmol/L (98-107) Carbon Dioxide Level 31 mmol/L (21-32) Anion Gap 9 (6-14) Blood Urea Nitrogen 12 mg/dL (7-20) Creatinine 0.9 mg/dL (0.6-1.0) Estimated GFR (Cockcroft-Gault) 63.2 BUN/Creatinine Ratio 13 (6-20) Glucose Level 139 mg/dL (70-99) H Calcium Level 9.1 mg/dL (8.5-10.1) Total Bilirubin 0.2 mg/dL (0.2-1.0) Aspartate Amino Transferase (AST) 13 U/L (15-37) L Alanine Aminotransferase (ALT) 21 U/L (14-59) Alkaline Phosphatase 91 U/L (46-116) Total Protein 7.5 g/dL (6.4-8.2) Albumin 3.6 g/dL (3.4-5.0) Albumin/Globulin Ratio 0.9 (1.0-1.7) L Current Medications: Meds: Current Medications Acetaminophen (Tylenol) 650 mg PRN Q6HRS PRN PO PAIN / TEMP; Start 12/10/17 at 05:00; Stop 12/11/17 at 16:16; Status DC Multi-Ingredient Ointment (Analgesic Victor) 1 van PRN QID PRN TP MUSCLE PAIN; Start 12/10/17 at 05:00 Al Hydroxide/Mg Hydroxide (Mylanta Plus Xs) 15 ml PRN AFTMEALHC PRN PO DYSPEPSIA; Start 12/10/17 at 05:00; Stop 12/11/17 at 16:16; Status DC Magnesium Hydroxide (Milk Of Magnesia) 2,400 mg PRN QHS PRN PO CONSTIPATION; Start 12/10/17 at 05:00; Stop 12/11/17 at 16:16; Status DC Acetaminophen (Tylenol) 650 mg PRN Q4HRS PRN PO PAIN / TEMP; Start 12/10/17 at 05:30 Amlodipine Besylate (Norvasc) 5 mg DAILY PO Last administered on 12/20/17 07:49 ; Start 12/10/17 at 09:00 Atorvastatin Calcium (Lipitor) 10 mg QHS PO Last administered on 12/20/17 19:46 ; Start 12/10/17 at 21:00 Bismuth Subsalicylate (Pepto-Bismol) 262 mg PRN Q4HRS PRN PO DYSPEPSIA; Start 12/10/17 at 05:30 Ferrous Sulfate (Feosol) 325 mg BIDAFTMEAL PO Last administered on 12/20/17 17: 43; Start 12/10/17 at 09:00 Gabapentin (Neurontin) 300 mg DAILY PO Last administered on 12/20/17 07:49; Start 12/10/17 at 09:00 Acetaminophen/ Hydrocodone Bitart (Lortab 5/325) 1 tab TID PRN PO PAIN Last administered on 12/20/17 07:49; Start 12/10/17 at 05:30 Al Hydroxide/Mg Hydroxide (Mylanta Plus Xs) 30 ml PRN Q4HRS PRN PO DYSPEPSIA; Start 12/10/17 at 05:30 Timolol Maleate (Timoptic 0.5% [facility]) 1 drop DAILY OU Last administered on 12/11 10:58; Start 12/10/17 at 09:00 Vitamin D (Vitamin D3) 50,000 unit WEEKLY PO Last administered on 12/19/17 07: 53; Start 12/12/17 at 09:00 Hydrochlorothiazide (Hydrodiuril) 25 mg DAILY PO Last administered on 12/20/17 07:50; Start 12/10/17 at 09:00 Loperamide HCl (Imodium) 2 mg PRN Q2HR PRN PO DIARRHEA; Start 12/10/17 at 05:30 Magnesium Hydroxide (Milk Of Magnesia) 2,400 mg PRN DAILY PRN PO CONSTIPATION; Start 12/10/17 at 05:30 Metformin HCl (Glucophage) 1,000 mg BIDWMEALS PO Last administered on 12/20/17 17:00; Start 12/10/17 at 08:00 Potassium Chloride (Klor-Con) 10 meq BIDWMEALS PO Last administered on 07:49; Start 12/10/17 at 08:00; Stop 12/20/17 at 15:21; Status DC Linagliptin (Tradjenta) 5 mg DAILY06 PO Last administered on 12/20/17at 05:32; Start 12/10/17 at 06:00 Non-Formulary Medication (Solifenacin Succinate (Vesicare)) 5 mg DAILY PO ; Start 12/10/17 at 09:00; Stop 12/10/17 at 09:00; Status DC Oxybutynin Chloride (Ditropan) 5 mg BID PO Last administered on 12/20/17at 19:46 ; Start 12/10/17 at 09:00 Benztropine Mesylate (Cogentin) 1 mg DAILY PO Last administered on 12/20/17at 07: 49; Start 12/10/17 at 11:00 Olanzapine (ZyPREXA ZYDIS) 2.5 mg PRN Q2HR PRN PO PSYCHOSIS Last administered on 12/10/17at 11:04; Start 12/10/17 at 10:45; Stop 12/10/17 at 11:26; Status DC Olanzapine (ZyPREXA ZYDIS) 5 mg PRN Q2HR PRN PO PSYCHOSIS Last administered on 12/20/17at 17:43; Start 12/10/17 at 11:30 Lorazepam (Ativan) 0.5 mg PRN Q2HR PRN PO ANXIETY / AGITATION Last administered on 12/16/17at 07:54; Start 12/10/17 at 11:30 Valproic Acid (Depakene) 500 mg QHS PO ; Start 12/10/17 at 21:00; Stop 12/11/17 at 18:46; Status DC Haloperidol Lactate (Haldol) 5 mg DAILY IM Last administered on 12/12/17at 19:42 ; Start 12/11/17 at 03:15; Stop 12/13/17 at 05:13; Status DC Lorazepam (Ativan) 1 mg DAILY IM Last administered on 12/12/17at 21:12; Start at 03:15; Stop 12/14/17 at 18:47; Status DC Valproic Acid (Depakene) 500 mg QHS PO Last administered on 12/12/17at 19:15; Start 12/11/17 at 21:00; Stop 12/13/17 at 15:44; Status DC Trazodone HCl (Desyrel) 100 mg QHS PO Last administered on 12/19/17at 19:31; Start 12/12/17 at 21:00; Stop 12/19/17 at 19:37; Status DC Trazodone HCl (Desyrel) 100 mg PRN QHS PRN PO INSOMNIA; Start 12/12/17 at 20:00 Haloperidol (Haldol) 10 mg DAILY PO Last administered on 12/15/17at 10:34; Start 12/13/17 at 09:00; Stop 12/15/17 at 19:17; Status DC Valproic Acid (Depakene) 500 mg BID PO Last administered on 12/20/17at 19:45; Start 12/13/17 at 16:00 Haloperidol (Haldol) 15 mg DAILY PO Last administered on 12/20/17at 07:48; Start 12/16/17 at 09:00; Stop 12/22/17 at 10:00 Haloperidol Decanoate (Haldol Decanoate Im Extended Release) 100 mg 1X ONCE IM Last administered on 12/18/17at 15:09; Start 12/18/17 at 13:30; Stop 12/18/17 at 13:34; Status DC Haloperidol (Haldol) 10 mg DAILY PO ; Start 12/23/17 at 09:00 Trazodone HCl (Desyrel) 150 mg QHS PO Last administered on 12/19/17at 23:29; Start 12/19/17 at 21:00; Stop 12/20/17 at 18:00; Status DC Trazodone HCl (Desyrel) 50 mg 1X ONCE PO Last administered on 12/19/17at 21:38; Start 12/19/17 at 21:30; Stop 12/19/17 at 21:31; Status DC Potassium Chloride (Klor-Con) 20 meq BIDWMEALS PO ; Start 12/21/17 at 17:00 Trazodone HCl (Desyrel) 100 mg QHS PO ; Start 12/20/17 at 18:15; Stop 12/20/17 at 18:15; Status DC Trazodone HCl (Desyrel) 100 mg QHS PO Last administered on 12/20/17at 19:50; Start 12/20/17 at 21:00 Active Scripts Active Reported Benztropine Mesylate 1 Mg Tablet 1 Mg PO DAILY Atorvastatin Calcium 10 Mg Tablet 10 Mg PO QHS Amlodipine Besylate 5 Mg Tablet 5 Mg PO DAILY Januvia (Sitagliptin Phosphate) 100 Mg Tablet 100 Mg PO DAILY06 Potassium Chloride 10 Meq Tablet.er 10 Meq PO BID Metformin Hcl 1,000 Mg Tablet 1,000 Mg PO BID Hydrocodone-Apap 5-325 (Hydrocodone Bit/Acetaminophen) 1 Each Tablet 1 Tab PO TID PRN Hydrochlorothiazide Tablet (Hydrochlorothiazide) 12.5 Mg Tablet 25 Mg PO DAILY Gabapentin 300 Mg Capsule 300 Mg PO DAILY Ferrous Sulfate 325 Mg Tablet 325 Mg PO BID Vitamin D2 (Ergocalciferol (Vitamin D2)) 50,000 Unit Capsule 50,000 Unit PO QFR Vesicare (Solifenacin Succinate) 5 Mg Tablet 5 Mg PO DAILY Timoptic (Timolol Maleate) 10 Ml Drops 1 Ml OU DAILY Milk Of Magnesia (Magnesium Hydroxide) 2,400 Mg/10 Ml Oral.susp 2,400 Mg PO PRN DAILY PRN Maalox Maximum Strength Susp (Mag Hydrox/Al Hydrox/Simeth) 355 Ml Oral.susp 30 Ml PO PRN Q4HRS PRN Loperamide (Loperamide Hcl) 2 Mg Tablet 2 Mg PO PRN Q2HR PRN Bismatrol (Bismuth Subsalicylate) 262 Mg/15 Ml Oral.susp 262 Mg PO PRN Q4HRS PRN Tylenol (Acetaminophen) 325 Mg Tablet 650 Mg PO PRN Q4HRS PRN Zyprexa Zydis (Olanzapine) 5 Mg Tab.rapdis 2.5 Mg PO PRN Q2HR PRN Haldol Decanoate 100 (Haloperidol Decanoate) 100 Mg/1 Ml Ampul 50 Mg IM [id number] Invega Sustenna (Paliperidone Palmitate) 234 Mg/1.5 Ml Disp.syrin 234 Mg IM QMONTH I have reviewed the current psychotropics carefully including drug interactions. Risk benefit ratio favors no change other than as noted in my dictated progress note. Diagnosis: Problems: (1) Anxiety disorder (2) Bipolar affective, mixed, sev w/ psych (3) Dementia in Alzheimer's disease with delusions (4) Dementia in Alzheimer's disease with depression (5) Dementia, vascular, with delusions (6) Impulse control disorder (7) Schizoaffective disorder, chronic condition with acute exacerbation (8) Schizoaffective disorder DOMENIC BRUNSON MD December 20, 2017 23:02
[2017-12-21] MEDS: LINAGLIPTIN 5 MG TABLET PO SCH (06:09)
[2017-12-21 06:25] VITALS: BP 113/61
[2017-12-21] MEDS: HALOPERIDOL 5 MG TABLET PO SCH (07:59)
[2017-12-21] MEDS: hydroCHLOROthiazide 25 MG TABLET PO SCH (07:59)
[2017-12-21] MEDS: FERROUS SULFATE 325 MG TABLET. PO SCH ×2 (07:59→18:00)
[2017-12-21] MEDS: OXYBUTYNIN CHLORIDE 5 MG TABLET PO SCH ×2 (07:59→20:02)
[2017-12-21] MEDS: BENZTROPINE MESYLATE 1 MG TABLET PO SCH (07:59)
[2017-12-21] MEDS: amLODIPine BESYLATE 5 MG TABLET PO SCH (07:59)
[2017-12-21] MEDS: VALPROATE ACID 250 MG/5 ML ORAL SOLUTION PO SCH ×2 (07:59→20:02)
[2017-12-21] MEDS: GABAPENTIN 300 MG CAPSULE. PO SCH (07:59)
[2017-12-21] MEDS: metFORMIN 500 MG TABLET PO SCH ×2 (08:00→17:00)
[2017-12-21] MEDS: TIMOLOL 0.5% OPHTH SOLUTION 5ML BOTTLE. OU SCH (08:00)
[2017-12-21 16:39] VITALS: BP 121/75
[2017-12-21] MEDS: POTASSIUM CHLORIDE 20 MEQ TABLET.ER. PO SCH (17:00)
--- NOTE | 2017-12-21 18:48 | PDOC ---
Exam Note: José Miguel Note: Please also refer to the separate dictated note~for this date of service dictated separately.~Patient seen individually. Discussed the patient with Nursing staff reviewed the chart.~Reviewed interim history and current functioning. Reviewed vital signs,~Labs/ Radiology~and current medications noted below. Continue current treatment with the changes noted in the dictated addendum note Assessment: Vital Signs: Vital Signs Date Time Temp Pulse Resp B/P (MAP) Pulse Ox O2 Delivery O2 Flow Rate FiO2 12/21/17 16:39 97.2 87 18 121/75 (90) 94 12/17/17 13:00 Room Air I&O Intake and Output 12/21/17 07:00 Intake Total 240 ml Balance 240 ml Intake Oral 240 ml Labs: Laboratory Tests Test 12/21/17 07:42 Glucose (Fingerstick) 91 mg/dL (70-99) Current Medications: Meds: Current Medications Acetaminophen (Tylenol) 650 mg PRN Q6HRS PRN PO PAIN / TEMP; Start 12/10/17 at 05:00; Stop 12/11/17 at 16:16; Status DC Multi-Ingredient Ointment (Analgesic Garber) 1 van PRN QID PRN TP MUSCLE PAIN; Start 12/10/17 at 05:00 Al Hydroxide/Mg Hydroxide (Mylanta Plus Xs) 15 ml PRN AFTMEALHC PRN PO DYSPEPSIA; Start 12/10/17 at 05:00; Stop 12/11/17 at 16:16; Status DC Magnesium Hydroxide (Milk Of Magnesia) 2,400 mg PRN QHS PRN PO CONSTIPATION; Start 12/10/17 at 05:00; Stop 12/11/17 at 16:16; Status DC Acetaminophen (Tylenol) 650 mg PRN Q4HRS PRN PO PAIN / TEMP; Start 12/10/17 at 05:30 Amlodipine Besylate (Norvasc) 5 mg DAILY PO Last administered on 12/21/17at 07:59 ; Start 12/10/17 at 09:00 Atorvastatin Calcium (Lipitor) 10 mg QHS PO Last administered on 12/20/17at 19:46 ; Start 12/10/17 at 21:00 Bismuth Subsalicylate (Pepto-Bismol) 262 mg PRN Q4HRS PRN PO DYSPEPSIA; Start 12/10/17 at 05:30 Ferrous Sulfate (Feosol) 325 mg BIDAFTMEAL PO Last administered on 12/21/17 18: 00; Start 12/10/17 at 09:00 Gabapentin (Neurontin) 300 mg DAILY PO Last administered on 12/21/17 07:59; Start 12/10/17 at 09:00 Acetaminophen/ Hydrocodone Bitart (Lortab 5/325) 1 tab TID PRN PO PAIN Last administered on 12/20/17 07:49; Start 12/10/17 at 05:30 Al Hydroxide/Mg Hydroxide (Mylanta Plus Xs) 30 ml PRN Q4HRS PRN PO DYSPEPSIA; Start 12/10/17 at 05:30 Timolol Maleate (Timoptic 0.5% [facility]) 1 drop DAILY OU Last administered on 12/11 10:58; Start 12/10/17 at 09:00 Vitamin D (Vitamin D3) 50,000 unit WEEKLY PO Last administered on 12/19/17 07: 53; Start 12/12/17 at 09:00 Hydrochlorothiazide (Hydrodiuril) 25 mg DAILY PO Last administered on 12/21/17 07:59; Start 12/10/17 at 09:00 Loperamide HCl (Imodium) 2 mg PRN Q2HR PRN PO DIARRHEA; Start 12/10/17 at 05:30 Magnesium Hydroxide (Milk Of Magnesia) 2,400 mg PRN DAILY PRN PO CONSTIPATION; Start 12/10/17 at 05:30 Metformin HCl (Glucophage) 1,000 mg BIDWMEALS PO Last administered on 12/21/17 17:00; Start 12/10/17 at 08:00 Potassium Chloride (Klor-Con) 10 meq BIDWMEALS PO Last administered on 07:49; Start 12/10/17 at 08:00; Stop 12/20/17 at 15:21; Status DC Linagliptin (Tradjenta) 5 mg DAILY06 PO Last administered on 12/21/17 06:09; Start 12/10/17 at 06:00 Non-Formulary Medication (Solifenacin Succinate (Vesicare)) 5 mg DAILY PO ; Start 12/10/17 at 09:00; Stop 12/10/17 at 09:00; Status DC Oxybutynin Chloride (Ditropan) 5 mg BID PO Last administered on 12/21/17 07:59 ; Start 12/10/17 at 09:00 Benztropine Mesylate (Cogentin) 1 mg DAILY PO Last administered on 12/21/17 07: 59; Start 12/10/17 at 11:00 Olanzapine (ZyPREXA ZYDIS) 2.5 mg PRN Q2HR PRN PO PSYCHOSIS Last administered on 12/10/17 11:04; Start 12/10/17 at 10:45; Stop 12/10/17 at 11:26; Status DC Olanzapine (ZyPREXA ZYDIS) 5 mg PRN Q2HR PRN PO PSYCHOSIS Last administered on 12/21/17 18:31; Start 12/10/17 at 11:30 Lorazepam (Ativan) 0.5 mg PRN Q2HR PRN PO ANXIETY / AGITATION Last administered on 12/16/17 07:54; Start 12/10/17 at 11:30 Valproic Acid (Depakene) 500 mg QHS PO ; Start 12/10/17 at 21:00; Stop 12/11/17 at 18:46; Status DC Haloperidol Lactate (Haldol) 5 mg DAILY IM Last administered on 12/12/17at 19:42 ; Start 12/11/17 at 03:15; Stop 12/13/17 at 05:13; Status DC Lorazepam (Ativan) 1 mg DAILY IM Last administered on 12/12/17 21:12; Start at 03:15; Stop 12/14/17 at 18:47; Status DC Valproic Acid (Depakene) 500 mg QHS PO Last administered on 12/12/17at 19:15; Start 12/11/17 at 21:00; Stop 12/13/17 at 15:44; Status DC Trazodone HCl (Desyrel) 100 mg QHS PO Last administered on 12/19/17 19:31; Start 12/12/17 at 21:00; Stop 12/19/17 at 19:37; Status DC Trazodone HCl (Desyrel) 100 mg PRN QHS PRN PO INSOMNIA; Start 12/12/17 at 20:00 Haloperidol (Haldol) 10 mg DAILY PO Last administered on 4/30/18at 10:34; Start 12/13/17 at 09:00; Stop 12/15/17 at 19:17; Status DC Valproic Acid (Depakene) 500 mg BID PO Last administered on 12/21/17at 07:59; Start 12/13/17 at 16:00 Haloperidol (Haldol) 15 mg DAILY PO Last administered on 12/21/17at 07:59; Start 12/16/17 at 09:00; Stop 12/22/17 at 10:00 Haloperidol Decanoate (Haldol Decanoate Im Extended Release) 100 mg 1X ONCE IM Last administered on 12/18/17at 15:09; Start 12/18/17 at 13:30; Stop 12/18/17 at 13:34; Status DC Haloperidol (Haldol) 10 mg DAILY PO ; Start 12/23/17 at 09:00 Trazodone HCl (Desyrel) 150 mg QHS PO Last administered on 12/19/17at 23:29; Start 12/19/17 at 21:00; Stop 12/20/17 at 18:00; Status DC Trazodone HCl (Desyrel) 50 mg 1X ONCE PO Last administered on 12/19/17at 21:38; Start 12/19/17 at 21:30; Stop 12/19/17 at 21:31; Status DC Potassium Chloride (Klor-Con) 20 meq BIDWMEALS PO Last administered on at 17:00; Start 12/21/17 at 17:00 Trazodone HCl (Desyrel) 100 mg QHS PO ; Start 12/20/17 at 18:15; Stop 12/20/17 at 18:15; Status DC Trazodone HCl (Desyrel) 100 mg QHS PO Last administered on 12/20/17at 19:50; Start 12/20/17 at 21:00 Active Scripts Active Reported Benztropine Mesylate 1 Mg Tablet 1 Mg PO DAILY Atorvastatin Calcium 10 Mg Tablet 10 Mg PO QHS Amlodipine Besylate 5 Mg Tablet 5 Mg PO DAILY Januvia (Sitagliptin Phosphate) 100 Mg Tablet 100 Mg PO DAILY06 Potassium Chloride 10 Meq Tablet.er 10 Meq PO BID Metformin Hcl 1,000 Mg Tablet 1,000 Mg PO BID Hydrocodone-Apap 5-325 (Hydrocodone Bit/Acetaminophen) 1 Each Tablet 1 Tab PO TID PRN Hydrochlorothiazide Tablet (Hydrochlorothiazide) 12.5 Mg Tablet 25 Mg PO DAILY Gabapentin 300 Mg Capsule 300 Mg PO DAILY Ferrous Sulfate 325 Mg Tablet 325 Mg PO BID Vitamin D2 (Ergocalciferol (Vitamin D2)) 50,000 Unit Capsule 50,000 Unit PO QFR Vesicare (Solifenacin Succinate) 5 Mg Tablet 5 Mg PO DAILY Timoptic (Timolol Maleate) 10 Ml Drops 1 Ml OU DAILY Milk Of Magnesia (Magnesium Hydroxide) 2,400 Mg/10 Ml Oral.susp 2,400 Mg PO PRN DAILY PRN Maalox Maximum Strength Susp (Mag Hydrox/Al Hydrox/Simeth) 355 Ml Oral.susp 30 Ml PO PRN Q4HRS PRN Loperamide (Loperamide Hcl) 2 Mg Tablet 2 Mg PO PRN Q2HR PRN Bismatrol (Bismuth Subsalicylate) 262 Mg/15 Ml Oral.susp 262 Mg PO PRN Q4HRS PRN Tylenol (Acetaminophen) 325 Mg Tablet 650 Mg PO PRN Q4HRS PRN Zyprexa Zydis (Olanzapine) 5 Mg Tab.rapdis 2.5 Mg PO PRN Q2HR PRN Haldol Decanoate 100 (Haloperidol Decanoate) 100 Mg/1 Ml Ampul 50 Mg IM [id number] Invega Sustenna (Paliperidone Palmitate) 234 Mg/1.5 Ml Disp.syrin 234 Mg IM QMONTH I have reviewed the current psychotropics carefully including drug interactions. Risk benefit ratio favors no change other than as noted in my dictated progress note. Diagnosis: Problems: (1) Schizoaffective disorder (2) Schizoaffective disorder, chronic condition with acute exacerbation (3) Impulse control disorder (4) Dementia, vascular, with delusions (5) Dementia in Alzheimer's disease with depression (6) Dementia in Alzheimer's disease with delusions (7) Bipolar affective, mixed, sev w/ psych (8) Anxiety disorder DOMENIC BRUNSON MD December 21, 2017 18:48
[2017-12-21] MEDS: traZODone 100 MG TABLET. PO SCH (20:02)
[2017-12-21] MEDS: ATORVASTATIN CALCIUM 10 MG TABLET. PO SCH (20:02)
[2017-12-21] MEDS: HYDROcodone/APAP 5/325MG 1 TAB TABLET PO PRN (20:02)
[2017-12-22] MEDS: VALPROATE ACID 250 MG/5 ML ORAL SOLUTION PO SCH ×2 (04:55→19:51)
[2017-12-22] MEDS: GABAPENTIN 300 MG CAPSULE. PO SCH (04:55)
[2017-12-22] MEDS: metFORMIN 500 MG TABLET PO SCH ×2 (04:55→16:53)
[2017-12-22] MEDS: hydroCHLOROthiazide 25 MG TABLET PO SCH (04:56)
[2017-12-22] MEDS: HALOPERIDOL 5 MG TABLET PO SCH (04:56)
[2017-12-22] MEDS: OXYBUTYNIN CHLORIDE 5 MG TABLET PO SCH ×2 (04:56→19:51)
[2017-12-22] MEDS: BENZTROPINE MESYLATE 1 MG TABLET PO SCH (04:56)
[2017-12-22] MEDS: POTASSIUM CHLORIDE 20 MEQ TABLET.ER. PO SCH ×2 (04:56→16:53)
[2017-12-22] MEDS: FERROUS SULFATE 325 MG TABLET. PO SCH ×2 (04:56→16:53)
[2017-12-22] MEDS: amLODIPine BESYLATE 5 MG TABLET PO SCH (04:57)
[2017-12-22] MEDS: TIMOLOL 0.5% OPHTH SOLUTION 5ML BOTTLE. OU SCH (04:58)
[2017-12-22] MEDS: LINAGLIPTIN 5 MG TABLET PO SCH (04:58)
[2017-12-22 06:28] VITALS: BP 111/69
[2017-12-22 16:31] VITALS: BP 99/66
[2017-12-22] MEDS: traZODone 100 MG TABLET. PO SCH (19:51)
[2017-12-22] MEDS: ATORVASTATIN CALCIUM 10 MG TABLET. PO SCH (19:51)
--- NOTE | 2017-12-22 20:59 | PDOC ---
Exam Note: José Miguel Note: Please also refer to the separate dictated note~for this date of service dictated separately.~Patient seen individually. Discussed the patient with Nursing staff reviewed the chart.~Reviewed interim history and current functioning. Reviewed vital signs,~Labs/ Radiology~and current medications noted below. Continue current treatment with the changes noted in the dictated addendum note Assessment: Vital Signs: Vital Signs Date Time Temp Pulse Resp B/P (MAP) Pulse Ox O2 Delivery O2 Flow Rate FiO2 12/22/17 16:31 97.0 93 16 99/66 (77) 96 12/21/17 23:36 Room Air I&O Intake and Output 12/22/17 07:00 Intake Total 480 ml Balance 480 ml Intake Oral 480 ml Labs: Laboratory Tests Test 12/22/17 07:27 Glucose (Fingerstick) 85 mg/dL (70-99) Current Medications: Meds: Current Medications Acetaminophen (Tylenol) 650 mg PRN Q6HRS PRN PO PAIN / TEMP; Start 12/10/17 at 05:00; Stop 12/11/17 at 16:16; Status DC Multi-Ingredient Ointment (Analgesic [place]) 1 van PRN QID PRN TP MUSCLE PAIN; Start 12/10/17 at 05:00 Al Hydroxide/Mg Hydroxide (Mylanta Plus Xs) 15 ml PRN AFTMEALHC PRN PO DYSPEPSIA; Start 12/10/17 at 05:00; Stop 12/11/17 at 16:16; Status DC Magnesium Hydroxide (Milk Of Magnesia) 2,400 mg PRN QHS PRN PO CONSTIPATION; Start 12/10/17 at 05:00; Stop 12/11/17 at 16:16; Status DC Acetaminophen (Tylenol) 650 mg PRN Q4HRS PRN PO PAIN / TEMP; Start 12/10/17 at 05:30 Amlodipine Besylate (Norvasc) 5 mg DAILY PO Last administered on 12/22/17at 04:57 ; Start 12/10/17 at 09:00 Atorvastatin Calcium (Lipitor) 10 mg QHS PO Last administered on 12/22/17at 19:51 ; Start 12/10/17 at 21:00 Bismuth Subsalicylate (Pepto-Bismol) 262 mg PRN Q4HRS PRN PO DYSPEPSIA; Start 12/10/17 at 05:30 Ferrous Sulfate (Feosol) 325 mg BIDAFTMEAL PO Last administered on 12/22/17 16: 53; Start 12/10/17 at 09:00 Gabapentin (Neurontin) 300 mg DAILY PO Last administered on 12/22/17 04:55; Start 12/10/17 at 09:00 Acetaminophen/ Hydrocodone Bitart (Lortab 5/325) 1 tab TID PRN PO PAIN Last administered on 12/21/17 20:02; Start 12/10/17 at 05:30 Al Hydroxide/Mg Hydroxide (Mylanta Plus Xs) 30 ml PRN Q4HRS PRN PO DYSPEPSIA; Start 12/10/17 at 05:30 Timolol Maleate (Timoptic 0.5% [facility]) 1 drop DAILY OU Last administered on 04:58; Start 12/10/17 at 09:00 Vitamin D (Vitamin D3) 50,000 unit WEEKLY PO Last administered on 12/19/17 07: 53; Start 12/12/17 at 09:00 Hydrochlorothiazide (Hydrodiuril) 25 mg DAILY PO Last administered on 12/22/17 04:56; Start 12/10/17 at 09:00 Loperamide HCl (Imodium) 2 mg PRN Q2HR PRN PO DIARRHEA; Start 12/10/17 at 05:30 Magnesium Hydroxide (Milk Of Magnesia) 2,400 mg PRN DAILY PRN PO CONSTIPATION; Start 12/10/17 at 05:30 Metformin HCl (Glucophage) 1,000 mg BIDWMEALS PO Last administered on 12/22/17 16:53; Start 12/10/17 at 08:00 Potassium Chloride (Klor-Con) 10 meq BIDWMEALS PO Last administered on 07:49; Start 12/10/17 at 08:00; Stop 12/20/17 at 15:21; Status DC Linagliptin (Tradjenta) 5 mg DAILY06 PO Last administered on 12/22/17 04:58; Start 12/10/17 at 06:00 Non-Formulary Medication (Solifenacin Succinate (Vesicare)) 5 mg DAILY PO ; Start 12/10/17 at 09:00; Stop 12/10/17 at 09:00; Status DC Oxybutynin Chloride (Ditropan) 5 mg BID PO Last administered on 12/22/17 19:51 ; Start 12/10/17 at 09:00 Benztropine Mesylate (Cogentin) 1 mg DAILY PO Last administered on 12/22/17 04: 56; Start 12/10/17 at 11:00 Olanzapine (ZyPREXA ZYDIS) 2.5 mg PRN Q2HR PRN PO PSYCHOSIS Last administered on 12/10/17 11:04; Start 12/10/17 at 10:45; Stop 12/10/17 at 11:26; Status DC Olanzapine (ZyPREXA ZYDIS) 5 mg PRN Q2HR PRN PO PSYCHOSIS Last administered on 12/21/17 18:31; Start 12/10/17 at 11:30 Lorazepam (Ativan) 0.5 mg PRN Q2HR PRN PO ANXIETY / AGITATION Last administered on 12/16/17 07:54; Start 12/10/17 at 11:30 Valproic Acid (Depakene) 500 mg QHS PO ; Start 12/10/17 at 21:00; Stop 12/11/17 at 18:46; Status DC Haloperidol Lactate (Haldol) 5 mg DAILY IM Last administered on 12/12/17 19:42 ; Start 12/11/17 at 03:15; Stop 12/13/17 at 05:13; Status DC Lorazepam (Ativan) 1 mg DAILY IM Last administered on 12/12/17 21:12; Start at 03:15; Stop 12/14/17 at 18:47; Status DC Valproic Acid (Depakene) 500 mg QHS PO Last administered on 12/12/17at 19:15; Start 12/11/17 at 21:00; Stop 12/13/17 at 15:44; Status DC Trazodone HCl (Desyrel) 100 mg QHS PO Last administered on 12/19/17 19:31; Start 12/12/17 at 21:00; Stop 12/19/17 at 19:37; Status DC Trazodone HCl (Desyrel) 100 mg PRN QHS PRN PO INSOMNIA; Start 12/12/17 at 20:00 Haloperidol (Haldol) 10 mg DAILY PO Last administered on 4/30/18at 10:34; Start 12/13/17 at 09:00; Stop 12/15/17 at 19:17; Status DC Valproic Acid (Depakene) 500 mg BID PO Last administered on 12/22/17at 19:51; Start 12/13/17 at 16:00 Haloperidol (Haldol) 15 mg DAILY PO Last administered on 12/22/17at 04:56; Start 12/16/17 at 09:00; Stop 12/22/17 at 10:00; Status DC Haloperidol Decanoate (Haldol Decanoate Im Extended Release) 100 mg 1X ONCE IM Last administered on 12/18/17at 15:09; Start 12/18/17 at 13:30; Stop 12/18/17 at 13:34; Status DC Haloperidol (Haldol) 10 mg DAILY PO ; Start 12/23/17 at 09:00 Trazodone HCl (Desyrel) 150 mg QHS PO Last administered on 12/19/17at 23:29; Start 12/19/17 at 21:00; Stop 12/20/17 at 18:00; Status DC Trazodone HCl (Desyrel) 50 mg 1X ONCE PO Last administered on 12/19/17at 21:38; Start 12/19/17 at 21:30; Stop 12/19/17 at 21:31; Status DC Potassium Chloride (Klor-Con) 20 meq BIDWMEALS PO Last administered on at 16:53; Start 12/21/17 at 17:00 Trazodone HCl (Desyrel) 100 mg QHS PO ; Start 12/20/17 at 18:15; Stop 12/20/17 at 18:15; Status DC Trazodone HCl (Desyrel) 100 mg QHS PO Last administered on 12/22/17at 19:51; Start 12/20/17 at 21:00 Active Scripts Active Reported Benztropine Mesylate 1 Mg Tablet 1 Mg PO DAILY Atorvastatin Calcium 10 Mg Tablet 10 Mg PO QHS Amlodipine Besylate 5 Mg Tablet 5 Mg PO DAILY Januvia (Sitagliptin Phosphate) 100 Mg Tablet 100 Mg PO DAILY06 Potassium Chloride 10 Meq Tablet.er 10 Meq PO BID Metformin Hcl 1,000 Mg Tablet 1,000 Mg PO BID Hydrocodone-Apap 5-325 (Hydrocodone Bit/Acetaminophen) 1 Each Tablet 1 Tab PO TID PRN Hydrochlorothiazide Tablet (Hydrochlorothiazide) 12.5 Mg Tablet 25 Mg PO DAILY Gabapentin 300 Mg Capsule 300 Mg PO DAILY Ferrous Sulfate 325 Mg Tablet 325 Mg PO BID Vitamin D2 (Ergocalciferol (Vitamin D2)) 50,000 Unit Capsule 50,000 Unit PO QFR Vesicare (Solifenacin Succinate) 5 Mg Tablet 5 Mg PO DAILY Timoptic (Timolol Maleate) 10 Ml Drops 1 Ml OU DAILY Milk Of Magnesia (Magnesium Hydroxide) 2,400 Mg/10 Ml Oral.susp 2,400 Mg PO PRN DAILY PRN Maalox Maximum Strength Susp (Mag Hydrox/Al Hydrox/Simeth) 355 Ml Oral.susp 30 Ml PO PRN Q4HRS PRN Loperamide (Loperamide Hcl) 2 Mg Tablet 2 Mg PO PRN Q2HR PRN Bismatrol (Bismuth Subsalicylate) 262 Mg/15 Ml Oral.susp 262 Mg PO PRN Q4HRS PRN Tylenol (Acetaminophen) 325 Mg Tablet 650 Mg PO PRN Q4HRS PRN Zyprexa Zydis (Olanzapine) 5 Mg Tab.rapdis 2.5 Mg PO PRN Q2HR PRN Haldol Decanoate 100 (Haloperidol Decanoate) 100 Mg/1 Ml Ampul 50 Mg IM [id number] Invega Sustenna (Paliperidone Palmitate) 234 Mg/1.5 Ml Disp.syrin 234 Mg IM QMONTH I have reviewed the current psychotropics carefully including drug interactions. Risk benefit ratio favors no change other than as noted in my dictated progress note. Diagnosis: Problems: (1) Anxiety disorder (2) Bipolar affective, mixed, sev w/ psych (3) Dementia in Alzheimer's disease with delusions (4) Dementia in Alzheimer's disease with depression (5) Dementia, vascular, with delusions (6) Impulse control disorder (7) Schizoaffective disorder, chronic condition with acute exacerbation (8) Schizoaffective disorder DOMENIC BRUNSON MD December 22, 2017 20:59
--- NOTE | 2017-12-23 04:49 | PN ---
DATE: 12/19/2017 PSYCHIATRIC PROGRESS NOTE This late entry 12/19/2017 covers elements not covered in my initial note 12/19/2017. SUBJECTIVE: I met with the patient in the evening. The patient slept 3-3/4 hours last previous evening and we will increase the trazodone from 100 mg at bedtime, may repeat x 1 to 150 mg at bedtime, december repeat x 1. She takes her meds orally in ice cream, will be checking labs morning of 12/20/2017. REVIEW OF SYSTEMS: No CV, , pulmonary, eye, ENT system symptoms on review. Reliability poor, still psychotic, paranoid, dismissive as I attempted to meet with her. MENTAL STATUS EXAM: Insight, judgment, recent and remote memory, attention, concentration, fund of knowledge poor, consistent with her diagnosis mentioned in my initial note. PLAN: Increase the trazodone. Rest unchanged from initial note. DOMENIC BRUNSON MD DR: LACEY/mamadou JOB#: [id number] / [id number]
--- NOTE | 2017-12-23 04:51 | PN ---
DATE: 12/20/2017 This is a late entry for 12/20, covers elements not covered in my initial note of 12/20. SUBJECTIVE: I met with the patient in the evening. The patient remained somewhat restless, wandering, difficult to understand, pressure of speech is evident. Takes her meds in ice cream, receives Zyprexa at supper time due to agitation and psychotic symptoms. REVIEW OF SYSTEMS: No CV, , pulmonary, eye, ENT system symptoms on review. Reliability poor. MENTAL STATUS EXAM: Oriented to herself. Insight, judgment, recent and remote memory impaired. No active suicidal or homicidal ideation. Remains quite psychotic. LABORATORY DATA: Reviewed. IMPRESSION: Unchanged from initial note. PLAN: Continue current psychotropics. Encourage oral compliance. MAN Nixon BRUNSON MD DR: LACEY/mamadou JOB#: [id number] / [id number]
--- NOTE | 2017-12-23 04:52 | PN ---
DATE: 12/21/2017 PSYCHIATRIC PROGRESS NOTE This late entry 12/21/2017 covers elements not covered in my initial note of 12/21/2017. SUBJECTIVE: I met with the patient in her room. She continues to have racing thoughts, is paranoid with marked mood lability, but showing improvement as compared to a few days back. Still relatively noncompliant with oral medications. REVIEW OF SYSTEMS: No CV, , pulmonary, eye, ENT system symptoms on review. Reliability poor. MENTAL STATUS EXAM: Oriented to herself and situation. Speech coherent, rapid at times. Abstraction fair, computation impaired, language function intact. Mood and affect remains labile, less so than before. LABORATORIES: Reviewed. IMPRESSION: Unchanged from initial note. PLAN: Continue current psychotropics. MAN Nixon BRUNSON MD DR: LACEY/mamadou JOB#: [id number] / [id number]
[2017-12-23] MEDS: LINAGLIPTIN 5 MG TABLET PO SCH (05:35)
[2017-12-23 06:17] VITALS: BP 117/64
[2017-12-23] MEDS: TIMOLOL 0.5% OPHTH SOLUTION 5ML BOTTLE. OU SCH (09:00)
[2017-12-23] MEDS: amLODIPine BESYLATE 5 MG TABLET PO SCH (09:11)
[2017-12-23] MEDS: OXYBUTYNIN CHLORIDE 5 MG TABLET PO SCH ×2 (09:11→19:58)
[2017-12-23] MEDS: hydroCHLOROthiazide 25 MG TABLET PO SCH (09:11)
[2017-12-23] MEDS: BENZTROPINE MESYLATE 1 MG TABLET PO SCH (09:11)
[2017-12-23] MEDS: FERROUS SULFATE 325 MG TABLET. PO SCH ×2 (09:12→16:54)
[2017-12-23] MEDS: metFORMIN 500 MG TABLET PO SCH ×2 (09:12→16:54)
[2017-12-23] MEDS: VALPROATE ACID 250 MG/5 ML ORAL SOLUTION PO SCH ×2 (09:12→19:57)
[2017-12-23] MEDS: GABAPENTIN 300 MG CAPSULE. PO SCH (09:12)
[2017-12-23] MEDS: POTASSIUM CHLORIDE 20 MEQ TABLET.ER. PO SCH ×2 (09:12→16:54)
[2017-12-23] MEDS: HALOPERIDOL 5 MG TABLET PO SCH (09:14)
[2017-12-23 16:15] VITALS: BP 135/75
[2017-12-23] MEDS: traZODone 100 MG TABLET. PO SCH (19:58)
[2017-12-23] MEDS: ATORVASTATIN CALCIUM 10 MG TABLET. PO SCH (19:58)
--- NOTE | 2017-12-23 20:53 | PDOC ---
Exam Note: José Miguel Note: Please also refer to the separate dictated note~for this date of service dictated separately.~Patient seen individually. Discussed the patient with Nursing staff reviewed the chart.~Reviewed interim history and current functioning. Reviewed vital signs,~Labs/ Radiology~and current medications noted below. Continue current treatment with the changes noted in the dictated addendum note Assessment: Vital Signs: Vital Signs Date Time Temp Pulse Resp B/P (MAP) Pulse Ox O2 Delivery O2 Flow Rate FiO2 12/23/17 16:15 97.5 104 24 135/75 (95) 96 12/23/17 06:17 Room Air I&O Intake and Output 12/23/17 07:00 Intake Total 900 ml Balance 900 ml Intake Oral 900 ml Labs: Laboratory Tests Test 12/23/17 07:31 Glucose (Fingerstick) 102 mg/dL (70-99) H Current Medications: Meds: Current Medications Acetaminophen (Tylenol) 650 mg PRN Q6HRS PRN PO PAIN / TEMP; Start 12/10/17 at 05:00; Stop 12/11/17 at 16:16; Status DC Multi-Ingredient Ointment (Analgesic [place]) 1 van PRN QID PRN TP MUSCLE PAIN; Start 12/10/17 at 05:00 Al Hydroxide/Mg Hydroxide (Mylanta Plus Xs) 15 ml PRN AFTMEALHC PRN PO DYSPEPSIA; Start 12/10/17 at 05:00; Stop 12/11/17 at 16:16; Status DC Magnesium Hydroxide (Milk Of Magnesia) 2,400 mg PRN QHS PRN PO CONSTIPATION; Start 12/10/17 at 05:00; Stop 12/11/17 at 16:16; Status DC Acetaminophen (Tylenol) 650 mg PRN Q4HRS PRN PO PAIN / TEMP; Start 12/10/17 at 05:30 Amlodipine Besylate (Norvasc) 5 mg DAILY PO Last administered on 12/23/17at 09:11 ; Start 12/10/17 at 09:00 Atorvastatin Calcium (Lipitor) 10 mg QHS PO Last administered on 12/23/17at 19:58 ; Start 12/10/17 at 21:00 Bismuth Subsalicylate (Pepto-Bismol) 262 mg PRN Q4HRS PRN PO DYSPEPSIA; Start 12/10/17 at 05:30 Ferrous Sulfate (Feosol) 325 mg BIDAFTMEAL PO Last administered on 12/23/17 16: 54; Start 12/10/17 at 09:00 Gabapentin (Neurontin) 300 mg DAILY PO Last administered on 12/23/17 09:12; Start 12/10/17 at 09:00 Acetaminophen/ Hydrocodone Bitart (Lortab 5/325) 1 tab TID PRN PO PAIN Last administered on 12/21/17 20:02; Start 12/10/17 at 05:30 Al Hydroxide/Mg Hydroxide (Mylanta Plus Xs) 30 ml PRN Q4HRS PRN PO DYSPEPSIA; Start 12/10/17 at 05:30 Timolol Maleate (Timoptic 0.5% [facility]) 1 drop DAILY OU Last administered on 04:58; Start 12/10/17 at 09:00 Vitamin D (Vitamin D3) 50,000 unit WEEKLY PO Last administered on 12/19/17 07: 53; Start 12/12/17 at 09:00 Hydrochlorothiazide (Hydrodiuril) 25 mg DAILY PO Last administered on 12/23/17 09:11; Start 12/10/17 at 09:00 Loperamide HCl (Imodium) 2 mg PRN Q2HR PRN PO DIARRHEA; Start 12/10/17 at 05:30 Magnesium Hydroxide (Milk Of Magnesia) 2,400 mg PRN DAILY PRN PO CONSTIPATION; Start 12/10/17 at 05:30 Metformin HCl (Glucophage) 1,000 mg BIDWMEALS PO Last administered on 12/23/17 16:54; Start 12/10/17 at 08:00 Potassium Chloride (Klor-Con) 10 meq BIDWMEALS PO Last administered on 07:49; Start 12/10/17 at 08:00; Stop 12/20/17 at 15:21; Status DC Linagliptin (Tradjenta) 5 mg DAILY06 PO Last administered on 12/23/17 05:35; Start 12/10/17 at 06:00 Non-Formulary Medication (Solifenacin Succinate (Vesicare)) 5 mg DAILY PO ; Start 12/10/17 at 09:00; Stop 12/10/17 at 09:00; Status DC Oxybutynin Chloride (Ditropan) 5 mg BID PO Last administered on 12/23/17 19:58 ; Start 12/10/17 at 09:00 Benztropine Mesylate (Cogentin) 1 mg DAILY PO Last administered on 12/23/17 09: 11; Start 12/10/17 at 11:00 Olanzapine (ZyPREXA ZYDIS) 2.5 mg PRN Q2HR PRN PO PSYCHOSIS Last administered on 12/10/17 11:04; Start 12/10/17 at 10:45; Stop 12/10/17 at 11:26; Status DC Olanzapine (ZyPREXA ZYDIS) 5 mg PRN Q2HR PRN PO PSYCHOSIS Last administered on 12/21/17 18:31; Start 12/10/17 at 11:30 Lorazepam (Ativan) 0.5 mg PRN Q2HR PRN PO ANXIETY / AGITATION Last administered on 12/16/17 07:54; Start 12/10/17 at 11:30 Valproic Acid (Depakene) 500 mg QHS PO ; Start 12/10/17 at 21:00; Stop 12/11/17 at 18:46; Status DC Haloperidol Lactate (Haldol) 5 mg DAILY IM Last administered on 12/12/17 19:42 ; Start 12/11/17 at 03:15; Stop 12/13/17 at 05:13; Status DC Lorazepam (Ativan) 1 mg DAILY IM Last administered on 12/12/17 21:12; Start at 03:15; Stop 12/14/17 at 18:47; Status DC Valproic Acid (Depakene) 500 mg QHS PO Last administered on 12/12/17at 19:15; Start 12/11/17 at 21:00; Stop 12/13/17 at 15:44; Status DC Trazodone HCl (Desyrel) 100 mg QHS PO Last administered on 12/19/17 19:31; Start 12/12/17 at 21:00; Stop 12/19/17 at 19:37; Status DC Trazodone HCl (Desyrel) 100 mg PRN QHS PRN PO INSOMNIA; Start 12/12/17 at 20:00 Haloperidol (Haldol) 10 mg DAILY PO Last administered on 4/30/18at 10:34; Start 12/13/17 at 09:00; Stop 12/15/17 at 19:17; Status DC Valproic Acid (Depakene) 500 mg BID PO Last administered on 12/23/17at 19:57; Start 12/13/17 at 16:00 Haloperidol (Haldol) 15 mg DAILY PO Last administered on 12/22/17at 04:56; Start 12/16/17 at 09:00; Stop 12/22/17 at 10:00; Status DC Haloperidol Decanoate (Haldol Decanoate Im Extended Release) 100 mg 1X ONCE IM Last administered on 12/18/17at 15:09; Start 12/18/17 at 13:30; Stop 12/18/17 at 13:34; Status DC Haloperidol (Haldol) 10 mg DAILY PO Last administered on 12/23/17at 09:14; Start 12/23/17 at 09:00 Trazodone HCl (Desyrel) 150 mg QHS PO Last administered on 12/19/17at 23:29; Start 12/19/17 at 21:00; Stop 12/20/17 at 18:00; Status DC Trazodone HCl (Desyrel) 50 mg 1X ONCE PO Last administered on 12/19/17at 21:38; Start 12/19/17 at 21:30; Stop 12/19/17 at 21:31; Status DC Potassium Chloride (Klor-Con) 20 meq BIDWMEALS PO Last administered on at 16:54; Start 12/21/17 at 17:00 Trazodone HCl (Desyrel) 100 mg QHS PO ; Start 12/20/17 at 18:15; Stop 12/20/17 at 18:15; Status DC Trazodone HCl (Desyrel) 100 mg QHS PO Last administered on 12/23/17at 19:58; Start 12/20/17 at 21:00 Haloperidol Decanoate (Haldol Decanoate Im Extended Release) 50 mg 1X ONCE IM ; Start 12/24/17 at 09:00; Stop 12/24/17 at 09:01 Haloperidol Decanoate (Haldol Decanoate Im Extended Release) 150 mg QMONTH IM ; Start 01/23/18 at 09:00 Active Scripts Active Reported Benztropine Mesylate 1 Mg Tablet 1 Mg PO DAILY Atorvastatin Calcium 10 Mg Tablet 10 Mg PO QHS Amlodipine Besylate 5 Mg Tablet 5 Mg PO DAILY Januvia (Sitagliptin Phosphate) 100 Mg Tablet 100 Mg PO DAILY06 Potassium Chloride 10 Meq Tablet.er 10 Meq PO BID Metformin Hcl 1,000 Mg Tablet 1,000 Mg PO BID Hydrocodone-Apap 5-325 (Hydrocodone Bit/Acetaminophen) 1 Each Tablet 1 Tab PO TID PRN Hydrochlorothiazide Tablet (Hydrochlorothiazide) 12.5 Mg Tablet 25 Mg PO DAILY Gabapentin 300 Mg Capsule 300 Mg PO DAILY Ferrous Sulfate 325 Mg Tablet 325 Mg PO BID Vitamin D2 (Ergocalciferol (Vitamin D2)) 50,000 Unit Capsule 50,000 Unit PO QFR Vesicare (Solifenacin Succinate) 5 Mg Tablet 5 Mg PO DAILY Timoptic (Timolol Maleate) 10 Ml Drops 1 Ml OU DAILY Milk Of Magnesia (Magnesium Hydroxide) 2,400 Mg/10 Ml Oral.susp 2,400 Mg PO PRN DAILY PRN Maalox Maximum Strength Susp (Mag Hydrox/Al Hydrox/Simeth) 355 Ml Oral.susp 30 Ml PO PRN Q4HRS PRN Loperamide (Loperamide Hcl) 2 Mg Tablet 2 Mg PO PRN Q2HR PRN Bismatrol (Bismuth Subsalicylate) 262 Mg/15 Ml Oral.susp 262 Mg PO PRN Q4HRS PRN Tylenol (Acetaminophen) 325 Mg Tablet 650 Mg PO PRN Q4HRS PRN Zyprexa Zydis (Olanzapine) 5 Mg Tab.rapdis 2.5 Mg PO PRN Q2HR PRN Haldol Decanoate 100 (Haloperidol Decanoate) 100 Mg/1 Ml Ampul 50 Mg IM [id number] Invega Sustenna (Paliperidone Palmitate) 234 Mg/1.5 Ml Disp.syrin 234 Mg IM QMONTH I have reviewed the current psychotropics carefully including drug interactions. Risk benefit ratio favors no change other than as noted in my dictated progress note. Diagnosis: Problems: (1) Anxiety disorder (2) Bipolar affective, mixed, sev w/ psych (3) Dementia in Alzheimer's disease with delusions (4) Dementia in Alzheimer's disease with depression (5) Dementia, vascular, with delusions (6) Impulse control disorder (7) Schizoaffective disorder, chronic condition with acute exacerbation (8) Schizoaffective disorder DOMENIC BRUNSON MD December 23, 2017 20:53
--- NOTE | 2017-12-23 23:07 | PN ---
DATE: 12/22/2017 PSYCHIATRIC PROGRESS NOTE This late entry 12/22/2017 covers elements not covered in my initial note of 12/22/2017. SUBJECTIVE: Met with the patient in the evening of 12/22/2017. The patient slept 7-1/2 hours previous evening. Per nursing report, she is little easier to understand, pressure of speech is slightly better, takes her medications in chocolate ice cream. Valproic acid level is therapeutic at 77. REVIEW OF SYSTEMS: No CV, , pulmonary, eye, ENT system symptoms on review. Reliability is poor. MENTAL STATUS EXAM: Oriented to herself, situation. Speech can be rapid at times. Abstraction fair, computation is impaired, language function intact, attention span short. Mood and affect remain somewhat labile. LABORATORY DATA: Reviewed. IMPRESSION: Schizoaffective disorder, bipolar type, mixed with psychotic features; major neurocognitive disorder, Alzheimer, vascular with depression, delusion. Rest unchanged. PLAN: Continue current psychotropics. We will give the second dosage of Haldol Decanoate 50 mg on 12/24/2017. Maintain rest unchanged. MAN Nixon BRUNSON MD DR: LACEY/mamadou JOB#: [id number] / [id number]
[2017-12-24 06:00] VITALS: BP 106/65
[2017-12-24] MEDS: LINAGLIPTIN 5 MG TABLET PO SCH (06:05)
[2017-12-24] MEDS: hydroCHLOROthiazide 25 MG TABLET PO SCH (08:31)
[2017-12-24] MEDS: GABAPENTIN 300 MG CAPSULE. PO SCH (08:31)
[2017-12-24] MEDS: FERROUS SULFATE 325 MG TABLET. PO SCH ×2 (08:31→17:18)
[2017-12-24] MEDS: VALPROATE ACID 250 MG/5 ML ORAL SOLUTION PO SCH ×2 (08:31→19:46)
[2017-12-24] MEDS: HALOPERIDOL 5 MG TABLET PO SCH (08:31)
[2017-12-24] MEDS: OXYBUTYNIN CHLORIDE 5 MG TABLET PO SCH ×2 (08:32→19:46)
[2017-12-24] MEDS: TIMOLOL 0.5% OPHTH SOLUTION 5ML BOTTLE. OU SCH (08:32)
[2017-12-24] MEDS: POTASSIUM CHLORIDE 20 MEQ TABLET.ER. PO SCH ×2 (08:32→17:18)
[2017-12-24] MEDS: BENZTROPINE MESYLATE 1 MG TABLET PO SCH (08:32)
[2017-12-24] MEDS: metFORMIN 500 MG TABLET PO SCH ×2 (08:32→17:18)
[2017-12-24] MEDS: amLODIPine BESYLATE 5 MG TABLET PO SCH (08:32)
[2017-12-24] MEDS ORDERED: HALOPERIDOL DECANOATE IM ER 50 MG/ML VIAL. IM ONE (09:00)
[2017-12-24] MEDS: ATORVASTATIN CALCIUM 10 MG TABLET. PO SCH (19:46)
[2017-12-24] MEDS: traZODone 100 MG TABLET. PO SCH (19:46)
--- NOTE | 2017-12-24 22:18 | PDOC ---
Exam Note: José Miguel Note: Please also refer to the separate dictated note~for this date of service dictated separately.~Patient seen individually. Discussed the patient with Nursing staff reviewed the chart.~Reviewed interim history and current functioning. Reviewed vital signs,~Labs/ Radiology~and current medications noted below. Continue current treatment with the changes noted in the dictated addendum note Assessment: Vital Signs: Vital Signs Date Time Temp Pulse Resp B/P (MAP) Pulse Ox O2 Delivery O2 Flow Rate FiO2 12/24/17 08:32 93 106/65 12/24/17 06:00 97.9 18 96 12/23/17 06:17 Room Air I&O Intake and Output 12/24/17 07:00 Intake Total 720 ml Balance 720 ml Intake Oral 720 ml Current Medications: Meds: Current Medications Acetaminophen (Tylenol) 650 mg PRN Q6HRS PRN PO PAIN / TEMP; Start 12/10/17 at 05:00; Stop 12/11/17 at 16:16; Status DC Multi-Ingredient Ointment (Analgesic [place]) 1 van PRN QID PRN TP MUSCLE PAIN; Start 12/10/17 at 05:00 Al Hydroxide/Mg Hydroxide (Mylanta Plus Xs) 15 ml PRN AFTMEALHC PRN PO DYSPEPSIA; Start 12/10/17 at 05:00; Stop 12/11/17 at 16:16; Status DC Magnesium Hydroxide (Milk Of Magnesia) 2,400 mg PRN QHS PRN PO CONSTIPATION; Start 12/10/17 at 05:00; Stop 12/11/17 at 16:16; Status DC Acetaminophen (Tylenol) 650 mg PRN Q4HRS PRN PO PAIN / TEMP; Start 12/10/17 at 05:30 Amlodipine Besylate (Norvasc) 5 mg DAILY PO Last administered on 12/24/17at 08:32 ; Start 12/10/17 at 09:00 Atorvastatin Calcium (Lipitor) 10 mg QHS PO Last administered on 12/24/17at 19:46 ; Start 12/10/17 at 21:00 Bismuth Subsalicylate (Pepto-Bismol) 262 mg PRN Q4HRS PRN PO DYSPEPSIA; Start 12/10/17 at 05:30 Ferrous Sulfate (Feosol) 325 mg BIDAFTMEAL PO Last administered on 12/24/17 17: 18; Start 12/10/17 at 09:00 Gabapentin (Neurontin) 300 mg DAILY PO Last administered on 12/24/17 08:31; Start 12/10/17 at 09:00 Acetaminophen/ Hydrocodone Bitart (Lortab 5/325) 1 tab TID PRN PO PAIN Last administered on 12/21/17 20:02; Start 12/10/17 at 05:30 Al Hydroxide/Mg Hydroxide (Mylanta Plus Xs) 30 ml PRN Q4HRS PRN PO DYSPEPSIA; Start 12/10/17 at 05:30 Timolol Maleate (Timoptic 0.5% Oph) 1 drop DAILY OU Last administered on 04:58; Start 12/10/17 at 09:00 Vitamin D (Vitamin D3) 50,000 unit WEEKLY PO Last administered on 12/19/17 07: 53; Start 12/12/17 at 09:00 Hydrochlorothiazide (Hydrodiuril) 25 mg DAILY PO Last administered on 12/24/17 08:31; Start 12/10/17 at 09:00 Loperamide HCl (Imodium) 2 mg PRN Q2HR PRN PO DIARRHEA; Start 12/10/17 at 05:30 Magnesium Hydroxide (Milk Of Magnesia) 2,400 mg PRN DAILY PRN PO CONSTIPATION; Start 12/10/17 at 05:30 Metformin HCl (Glucophage) 1,000 mg BIDWMEALS PO Last administered on 12/24/17 17:18; Start 12/10/17 at 08:00 Potassium Chloride (Klor-Con) 10 meq BIDWMEALS PO Last administered on 07:49; Start 12/10/17 at 08:00; Stop 12/20/17 at 15:21; Status DC Linagliptin (Tradjenta) 5 mg DAILY06 PO Last administered on 12/24/17 06:05; Start 12/10/17 at 06:00 Non-Formulary Medication (Solifenacin Succinate (Vesicare)) 5 mg DAILY PO ; Start 12/10/17 at 09:00; Stop 12/10/17 at 09:00; Status DC Oxybutynin Chloride (Ditropan) 5 mg BID PO Last administered on 5/9/18at 19:46 ; Start 12/10/17 at 09:00 Benztropine Mesylate (Cogentin) 1 mg DAILY PO Last administered on 12/24/17 08: 32; Start 12/10/17 at 11:00 Olanzapine (ZyPREXA ZYDIS) 2.5 mg PRN Q2HR PRN PO PSYCHOSIS Last administered on 12/10/17at 11:04; Start 12/10/17 at 10:45; Stop 12/10/17 at 11:26; Status DC Olanzapine (ZyPREXA ZYDIS) 5 mg PRN Q2HR PRN PO PSYCHOSIS Last administered on 12/21/17 18:31; Start 12/10/17 at 11:30 Lorazepam (Ativan) 0.5 mg PRN Q2HR PRN PO ANXIETY / AGITATION Last administered on 12/16/17at 07:54; Start 12/10/17 at 11:30 Valproic Acid (Depakene) 500 mg QHS PO ; Start 12/10/17 at 21:00; Stop 12/11/17 at 18:46; Status DC Haloperidol Lactate (Haldol) 5 mg DAILY IM Last administered on 12/12/17at 19:42 ; Start 12/11/17 at 03:15; Stop 12/13/17 at 05:13; Status DC Lorazepam (Ativan) 1 mg DAILY IM Last administered on 12/12/17at 21:12; Start at 03:15; Stop 12/14/17 at 18:47; Status DC Valproic Acid (Depakene) 500 mg QHS PO Last administered on 12/12/17at 19:15; Start 12/11/17 at 21:00; Stop 12/13/17 at 15:44; Status DC Trazodone HCl (Desyrel) 100 mg QHS PO Last administered on 12/19/17at 19:31; Start 12/12/17 at 21:00; Stop 12/19/17 at 19:37; Status DC Trazodone HCl (Desyrel) 100 mg PRN QHS PRN PO INSOMNIA; Start 12/12/17 at 20:00 Haloperidol (Haldol) 10 mg DAILY PO Last administered on 12/15/17at 10:34; Start 12/13/17 at 09:00; Stop 12/15/17 at 19:17; Status DC Valproic Acid (Depakene) 500 mg BID PO Last administered on 12/24/17 19:46; Start 12/13/17 at 16:00 Haloperidol (Haldol) 15 mg DAILY PO Last administered on 12/22/17at 04:56; Start 12/16/17 at 09:00; Stop 12/22/17 at 10:00; Status DC Haloperidol Decanoate (Haldol Decanoate Im Extended Release) 100 mg 1X ONCE IM Last administered on 12/18/17at 15:09; Start 12/18/17 at 13:30; Stop 12/18/17 at 13:34; Status DC Haloperidol (Haldol) 10 mg DAILY PO Last administered on 12/24/17at 08:31; Start 12/23/17 at 09:00 Trazodone HCl (Desyrel) 150 mg QHS PO Last administered on 12/19/17at 23:29; Start 12/19/17 at 21:00; Stop 12/20/17 at 18:00; Status DC Trazodone HCl (Desyrel) 50 mg 1X ONCE PO Last administered on 12/19/17at 21:38; Start 12/19/17 at 21:30; Stop 12/19/17 at 21:31; Status DC Potassium Chloride (Klor-Con) 20 meq BIDWMEALS PO Last administered on 17:18; Start 12/21/17 at 17:00 Trazodone HCl (Desyrel) 100 mg QHS PO ; Start 12/20/17 at 18:15; Stop 12/20/17 at 18:15; Status DC Trazodone HCl (Desyrel) 100 mg QHS PO Last administered on 12/24/17at 19:46; Start 12/20/17 at 21:00 Haloperidol Decanoate (Haldol Decanoate Im Extended Release) 50 mg 1X ONCE IM Last administered on 12/24/17at 12:11; Start 12/24/17 at 09:00; Stop 12/24/17 at 09: 01; Status DC Haloperidol Decanoate (Haldol Decanoate Im Extended Release) 150 mg QMONTH IM ; Start 01/23/18 at 09:00 Active Scripts Active Reported Benztropine Mesylate 1 Mg Tablet 1 Mg PO DAILY Atorvastatin Calcium 10 Mg Tablet 10 Mg PO QHS Amlodipine Besylate 5 Mg Tablet 5 Mg PO DAILY Januvia (Sitagliptin Phosphate) 100 Mg Tablet 100 Mg PO DAILY06 Potassium Chloride 10 Meq Tablet.er 10 Meq PO BID Metformin Hcl 1,000 Mg Tablet 1,000 Mg PO BID Hydrocodone-Apap 5-325 (Hydrocodone Bit/Acetaminophen) 1 Each Tablet 1 Tab PO TID PRN Hydrochlorothiazide Tablet (Hydrochlorothiazide) 12.5 Mg Tablet 25 Mg PO DAILY Gabapentin 300 Mg Capsule 300 Mg PO DAILY Ferrous Sulfate 325 Mg Tablet 325 Mg PO BID Vitamin D2 (Ergocalciferol (Vitamin D2)) 50,000 Unit Capsule 50,000 Unit PO QFR Vesicare (Solifenacin Succinate) 5 Mg Tablet 5 Mg PO DAILY Timoptic (Timolol Maleate) 10 Ml Drops 1 Ml OU DAILY Milk Of Magnesia (Magnesium Hydroxide) 2,400 Mg/10 Ml Oral.susp 2,400 Mg PO PRN DAILY PRN Maalox Maximum Strength Susp (Mag Hydrox/Al Hydrox/Simeth) 355 Ml Oral.susp 30 Ml PO PRN Q4HRS PRN Loperamide (Loperamide Hcl) 2 Mg Tablet 2 Mg PO PRN Q2HR PRN Bismatrol (Bismuth Subsalicylate) 262 Mg/15 Ml Oral.susp 262 Mg PO PRN Q4HRS PRN Tylenol (Acetaminophen) 325 Mg Tablet 650 Mg PO PRN Q4HRS PRN Zyprexa Zydis (Olanzapine) 5 Mg Tab.rapdis 2.5 Mg PO PRN Q2HR PRN Haldol Decanoate 100 (Haloperidol Decanoate) 100 Mg/1 Ml Ampul 50 Mg IM [id number] Invega Sustenna (Paliperidone Palmitate) 234 Mg/1.5 Ml Disp.syrin 234 Mg IM QMONTH I have reviewed the current psychotropics carefully including drug interactions. Risk benefit ratio favors no change other than as noted in my dictated progress note. Diagnosis: Problems: (1) Anxiety disorder (2) Bipolar affective, mixed, sev w/ psych (3) Dementia in Alzheimer's disease with delusions (4) Dementia in Alzheimer's disease with depression (5) Dementia, vascular, with delusions (6) Impulse control disorder (7) Schizoaffective disorder, chronic condition with acute exacerbation (8) Schizoaffective disorder DOMENIC BRUNSON MD December 24, 2017 22:18
[2017-12-25] MEDS ORDERED: CHOL500050 PO (01:46)
[2017-12-25] MEDS ORDERED: FERR325T14 PO (01:47)
[2017-12-25] MEDS ORDERED: HALO100A2 IM (01:50)
[2017-12-25] MEDS ORDERED: HALO10TA PO (01:51)
[2017-12-25] MEDS ORDERED: LINA5TAB4 PO (01:59)
[2017-12-25] MEDS ORDERED: LORA0.5T PO (02:01)
[2017-12-25] MEDS ORDERED: METH29OI TP (02:09)
[2017-12-25] MEDS ORDERED: OLAN5TAB3 PO (02:10)
[2017-12-25] MEDS ORDERED: OXYB5TAB7 PO (02:12)
[2017-12-25] MEDS ORDERED: POTA20TA4 PO (02:13)
[2017-12-25] MEDS ORDERED: VALP250C PO (02:16)
[2017-12-25] MEDS ORDERED: VALP250S PO (02:17)
[2017-12-25] MEDS ORDERED: METF10003 PO (02:19)
[2017-12-25] MEDS ORDERED: TRAZ-90 PO ×4 (02:20→02:22)
--- NOTE | 2017-12-25 02:26 | PN ---
DATE: 12/23/2017 PSYCHIATRIC PROGRESS NOTES This is a late entry of 12/23/2017 covers elements not covered in my initial note of 12/23/2017. I met with the patient in the evening. The patient slept 6-1/4 hours. The patient takes medications in ice cream, was quite agitated previous evening, slept at night. Discussed with social service staff on a couple of occasions and with nursing staff. She has received her add on dosage of Haldol Decanoate 50 mg IM and will get this on the to make it a total of 150 mg once a month, which would be equivalent to the oral dosage that it appears it takes to stabilize her psychotic symptoms. REVIEW OF SYSTEMS: No CV, , pulmonary, eye system symptoms on review. Reliability poor. MENTAL STATUS EXAM: Oriented to herself and situation. Speech is coherent, rapid at times. Abstraction fair, computation impaired, language function intact. No suicidal or homicidal ideation. IMPRESSION: Unchanged from initial note. PLAN: As noted above. DOMENIC BRUNSON MD DR: LACEY/mamadou JOB#: [id number] / [id number]
[2017-12-25] MEDS: LINAGLIPTIN 5 MG TABLET PO SCH (06:00)
[2017-12-25] MEDS: TIMOLOL 0.5% OPHTH SOLUTION 5ML BOTTLE. OU SCH (09:00)
[2017-12-25] MEDS: metFORMIN 500 MG TABLET PO SCH (10:07)
[2017-12-25] MEDS: HALOPERIDOL 5 MG TABLET PO SCH (10:08)
[2017-12-25] MEDS: OXYBUTYNIN CHLORIDE 5 MG TABLET PO SCH (10:08)
[2017-12-25] MEDS: POTASSIUM CHLORIDE 20 MEQ TABLET.ER. PO SCH (10:08)
[2017-12-25] MEDS: BENZTROPINE MESYLATE 1 MG TABLET PO SCH (10:08)
[2017-12-25] MEDS: FERROUS SULFATE 325 MG TABLET. PO SCH (10:08)
[2017-12-25] MEDS: VALPROATE ACID 250 MG/5 ML ORAL SOLUTION PO SCH (10:08)
[2017-12-25 10:09] VITALS: BP 121/70
[2017-12-25] MEDS: hydroCHLOROthiazide 25 MG TABLET PO SCH (10:09)
[2017-12-25] MEDS: amLODIPine BESYLATE 5 MG TABLET PO SCH (10:09)
[2017-12-25] MEDS: GABAPENTIN 300 MG CAPSULE. PO SCH (10:09)
--- NOTE | 2017-12-25 18:09 | PDOC ---
Exam Note: José Miguel Note: Please also refer to the separate dictated note~for this date of service dictated separately.~Patient seen individually. Discussed the patient with Nursing staff reviewed the chart.~Reviewed interim history and current functioning. Reviewed vital signs,~Labs/ Radiology~and current medications noted below. Continue current treatment with the changes noted in the dictated addendum note Assessment: Vital Signs: Vital Signs Date Time Temp Pulse Resp B/P (MAP) Pulse Ox O2 Delivery O2 Flow Rate FiO2 12/25/17 10:09 81 121/70 12/24/17 06:00 97.9 18 96 12/23/17 06:17 Room Air I&O Intake and Output 12/25/17 07:00 Intake Total 960 ml Balance 960 ml Intake Oral 960 ml # Voids 1 Labs: Laboratory Tests Test 12/25/17 08:02 Glucose (Fingerstick) 86 mg/dL (70-99) Current Medications: Meds: Current Medications Acetaminophen (Tylenol) 650 mg PRN Q6HRS PRN PO PAIN / TEMP; Start 12/10/17 at 05:00; Stop 12/11/17 at 16:16; Status DC Multi-Ingredient Ointment (Analgesic [place]) 1 van PRN QID PRN TP MUSCLE PAIN; Start 12/10/17 at 05:00; Stop 12/25/17 at 12:34; Status DC Al Hydroxide/Mg Hydroxide (Mylanta Plus Xs) 15 ml PRN AFTMEALHC PRN PO DYSPEPSIA; Start 12/10/17 at 05:00; Stop 12/11/17 at 16:16; Status DC Magnesium Hydroxide (Milk Of Magnesia) 2,400 mg PRN QHS PRN PO CONSTIPATION; Start 12/10/17 at 05:00; Stop 12/11/17 at 16:16; Status DC Acetaminophen (Tylenol) 650 mg PRN Q4HRS PRN PO PAIN / TEMP; Start 12/10/17 at 05:30; Stop 12/25/17 at 12:34; Status DC Amlodipine Besylate (Norvasc) 5 mg DAILY PO Last administered on 12/25/17at 10: 09; Start 12/10/17 at 09:00; Stop 12/25/17 at 12:34; Status DC Atorvastatin Calcium (Lipitor) 10 mg QHS PO Last administered on 12/24/17at 19:46 ; Start 12/10/17 at 21:00; Stop 12/25/17 at 12:34; Status DC Bismuth Subsalicylate (Pepto-Bismol) 262 mg PRN Q4HRS PRN PO DYSPEPSIA; Start 12/10/17 at 05:30; Stop 12/25/17 at 12:34; Status DC Ferrous Sulfate (Feosol) 325 mg BIDAFTMEAL PO Last administered on 12/25/17at 10 :08; Start 12/10/17 at 09:00; Stop 12/25/17 at 12:34; Status DC Gabapentin (Neurontin) 300 mg DAILY PO Last administered on 12/25/17 10:09; Start 12/10/17 at 09:00; Stop 12/25/17 at 12:34; Status DC Acetaminophen/ Hydrocodone Bitart (Lortab 5/325) 1 tab TID PRN PO PAIN Last administered on 12/21/17 20:02; Start 12/10/17 at 05:30; Stop 12/25/17 at 12:34 ; Status DC Al Hydroxide/Mg Hydroxide (Mylanta Plus Xs) 30 ml PRN Q4HRS PRN PO DYSPEPSIA; Start 12/10/17 at 05:30; Stop 12/25/17 at 12:34; Status DC Timolol Maleate (Timoptic 0.5% Oph) 1 drop DAILY OU Last administered on at 04:58; Start 12/10/17 at 09:00; Stop 12/25/17 at 12:34; Status DC Vitamin D (Vitamin D3) 50,000 unit WEEKLY PO Last administered on 12/19/17at 07: 53; Start 12/12/17 at 09:00; Stop 12/25/17 at 12:34; Status DC Hydrochlorothiazide (Hydrodiuril) 25 mg DAILY PO Last administered on at 10:09; Start 12/10/17 at 09:00; Stop 12/25/17 at 12:34; Status DC Loperamide HCl (Imodium) 2 mg PRN Q2HR PRN PO DIARRHEA; Start 12/10/17 at 05:30 ; Stop 12/25/17 at 12:34; Status DC Magnesium Hydroxide (Milk Of Magnesia) 2,400 mg PRN DAILY PRN PO CONSTIPATION; Start 12/10/17 at 05:30; Stop 12/25/17 at 12:34; Status DC Metformin HCl (Glucophage) 1,000 mg BIDWMEALS PO Last administered on at 10:07; Start 12/10/17 at 08:00; Stop 12/25/17 at 12:34; Status DC Potassium Chloride (Klor-Con) 10 meq BIDWMEALS PO Last administered on at 07:49; Start 12/10/17 at 08:00; Stop 12/20/17 at 15:21; Status DC Linagliptin (Tradjenta) 5 mg DAILY06 PO Last administered on 12/24/17at 06:05; Start 12/10/17 at 06:00; Stop 12/25/17 at 12:34; Status DC Non-Formulary Medication (Solifenacin Succinate (Vesicare)) 5 mg DAILY PO ; Start 12/10/17 at 09:00; Stop 12/10/17 at 09:00; Status DC Oxybutynin Chloride (Ditropan) 5 mg BID PO Last administered on 12/25/17at 10:08 ; Start 12/10/17 at 09:00; Stop 12/25/17 at 12:34; Status DC Benztropine Mesylate (Cogentin) 1 mg DAILY PO Last administered on 12/25/17at 10 :08; Start 12/10/17 at 11:00; Stop 12/25/17 at 12:34; Status DC Olanzapine (ZyPREXA ZYDIS) 2.5 mg PRN Q2HR PRN PO PSYCHOSIS Last administered on 12/10/17at 11:04; Start 12/10/17 at 10:45; Stop 12/10/17 at 11:26; Status DC Olanzapine (ZyPREXA ZYDIS) 5 mg PRN Q2HR PRN PO PSYCHOSIS Last administered on 12/21/17at 18:31; Start 12/10/17 at 11:30; Stop 12/25/17 at 12:34; Status DC Lorazepam (Ativan) 0.5 mg PRN Q2HR PRN PO ANXIETY / AGITATION Last administered on 12/16/17at 07:54; Start 12/10/17 at 11:30; Stop 12/25/17 at 12:34 ; Status DC Valproic Acid (Depakene) 500 mg QHS PO ; Start 12/10/17 at 21:00; Stop 12/11/17 at 18:46; Status DC Haloperidol Lactate (Haldol) 5 mg DAILY IM Last administered on 12/12/17at 19:42 ; Start 12/11/17 at 03:15; Stop 12/13/17 at 05:13; Status DC Lorazepam (Ativan) 1 mg DAILY IM Last administered on 12/12/17at 21:12; Start at 03:15; Stop 12/14/17 at 18:47; Status DC Valproic Acid (Depakene) 500 mg QHS PO Last administered on 12/12/17at 19:15; Start 12/11/17 at 21:00; Stop 12/13/17 at 15:44; Status DC Trazodone HCl (Desyrel) 100 mg QHS PO Last administered on 12/19/17at 19:31; Start 12/12/17 at 21:00; Stop 12/19/17 at 19:37; Status DC Trazodone HCl (Desyrel) 100 mg PRN QHS PRN PO INSOMNIA; Start 12/12/17 at 20:00 ; Stop 12/25/17 at 12:34; Status DC Haloperidol (Haldol) 10 mg DAILY PO Last administered on 12/15/17at 10:34; Start 12/13/17 at 09:00; Stop 12/15/17 at 19:17; Status DC Valproic Acid (Depakene) 500 mg BID PO Last administered on 12/25/17at 10:08; Start 12/13/17 at 16:00; Stop 12/25/17 at 12:34; Status DC Haloperidol (Haldol) 15 mg DAILY PO Last administered on 12/22/17at 04:56; Start 12/16/17 at 09:00; Stop 12/22/17 at 10:00; Status DC Haloperidol Decanoate (Haldol Decanoate Im Extended Release) 100 mg 1X ONCE IM Last administered on 12/18/17at 15:09; Start 12/18/17 at 13:30; Stop 12/18/17 at 13:34; Status DC Haloperidol (Haldol) 10 mg DAILY PO Last administered on 12/25/17at 10:08; Start 12/23/17 at 09:00; Stop 12/25/17 at 12:34; Status DC Trazodone HCl (Desyrel) 150 mg QHS PO Last administered on 12/19/17at 23:29; Start 12/19/17 at 21:00; Stop 12/20/17 at 18:00; Status DC Trazodone HCl (Desyrel) 50 mg 1X ONCE PO Last administered on 12/19/17at 21:38; Start 12/19/17 at 21:30; Stop 12/19/17 at 21:31; Status DC Potassium Chloride (Klor-Con) 20 meq BIDWMEALS PO Last administered on at 10:08; Start 12/21/17 at 17:00; Stop 12/25/17 at 12:34; Status DC Trazodone HCl (Desyrel) 100 mg QHS PO ; Start 12/20/17 at 18:15; Stop 12/20/17 at 18:15; Status DC Trazodone HCl (Desyrel) 100 mg QHS PO Last administered on 12/24/17at 19:46; Start 12/20/17 at 21:00; Stop 12/25/17 at 12:34; Status DC Haloperidol Decanoate (Haldol Decanoate Im Extended Release) 50 mg 1X ONCE IM Last administered on 12/24/17at 12:11; Start 12/24/17 at 09:00; Stop 12/24/17 at 09: 01; Status DC Haloperidol Decanoate (Haldol Decanoate Im Extended Release) 150 mg QMONTH IM ; Start 01/23/18 at 09:00; Stop 01/23/18 at 09:00; Status DC Active Scripts Active Reported Trazodone Hcl 100 Mg Tablet 100 Mg PO PRN QHS PRN Metformin Hcl 1,000 Mg Tablet 1,000 Mg PO BIDWMEALS Depakene (Valproate Sodium) 250 Mg/5 Ml Solution 500 Mg PO BID Klor-Con M20 (Potassium Chloride) 20 Meq Tab.er.prt 20 Meq PO BIDWMEALS Oxybutynin Chloride 5 Mg Tablet 5 Mg PO BID Zyprexa (Olanzapine) 5 Mg Tablet 5 Mg PO PRN Q2HR PRN Analgesic [place] (Methyl Salicylate/Menthol) 28 Gm Oint...g. 1 Gm TP PRN QID PRN Lorazepam 0.5 Mg Tablet 0.5 Mg PO PRN Q2HR PRN Haloperidol 10 Mg Tablet 10 Mg PO DAILY Haldol Decanoate 100 (Haloperidol Decanoate) 100 Mg/1 Ml Ampul 150 Mg IM QMONTH Ferrous Sulfate 325 Mg Tablet 325 Mg PO BIDAFTMEAL Vitamin D3 (Cholecalciferol (Vitamin D3)) 50,000 Unit Capsule 50,000 Unit PO WEEKLY Benztropine Mesylate 1 Mg Tablet 1 Mg PO DAILY Atorvastatin Calcium 10 Mg Tablet 10 Mg PO QHS Amlodipine Besylate 5 Mg Tablet 5 Mg PO DAILY Januvia (Sitagliptin Phosphate) 100 Mg Tablet 100 Mg PO DAILY06 Hydrocodone-Apap 5-325 (Hydrocodone Bit/Acetaminophen) 1 Each Tablet 1 Tab PO TID PRN Hydrochlorothiazide Tablet (Hydrochlorothiazide) 12.5 Mg Tablet 25 Mg PO DAILY Gabapentin 300 Mg Capsule 300 Mg PO DAILY Timoptic (Timolol Maleate) 10 Ml Drops 1 Ml OU DAILY Milk Of Magnesia (Magnesium Hydroxide) 2,400 Mg/10 Ml Oral.susp 2,400 Mg PO PRN DAILY PRN Maalox Maximum Strength Susp (Mag Hydrox/Al Hydrox/Simeth) 355 Ml Oral.susp 30 Ml PO PRN Q4HRS PRN Loperamide (Loperamide Hcl) 2 Mg Tablet 2 Mg PO PRN Q2HR PRN Bismatrol (Bismuth Subsalicylate) 262 Mg/15 Ml Oral.susp 262 Mg PO PRN Q4HRS PRN Tylenol (Acetaminophen) 325 Mg Tablet 650 Mg PO PRN Q4HRS PRN Trazodone Hcl 100 Mg Tablet 100 Mg PO QHS I have reviewed the current psychotropics carefully including drug interactions. Risk benefit ratio favors no change other than as noted in my dictated progress note. Diagnosis: Problems: (1) Schizoaffective disorder, chronic condition with acute exacerbation (2) Impulse control disorder (3) Dementia, vascular, with delusions (4) Bipolar affective, mixed, sev w/ psych DOMENIC BRUNSON MD December 25, 2017 18:09
--- NOTE | 2017-12-26 09:41 | DS ---
DATE OF DISCHARGE: 12/25/2017 DISCHARGE SUMMARY/PSYCHIATRIC PROGRESS NOTE REASON FOR ADMISSION: Please refer to the admission history for details. Briefly, the patient is a 62-year-old -Citizen Of [place] female referred from [facility] where she presented from [facility] on account of combative behavior, throwing tray at other patients, refusing medications, increasingly psychotic within the context of her schizoaffective disorder, bipolar type, mixed with psychotic features. She had failed outpatient psychiatric interventions. SIGNIFICANT FINDINGS AND CLINICAL COURSE: Following admission, the patient was seen daily individually by myself from a psychiatric standpoint, medical followup with Dr. Roy/Dr. Bae. The patient was quite psychotic, labile, agitated with marked pressure of speech. Adjustments were made in her psychotropics and she was started on Haldol Decanoate, which was adjusted to 150 mg IM q. monthly as an equivalent dosage of what it took the oral Haldol dosage to help control her symptoms. She was also on Cogentin 1 mg daily, Zyprexa p.r.n., Depakene 500 mg b.i.d. with valproic acid level therapeutic at 77, Ativan p.r.n., Haldol 10 mg orally daily, and this should be tapered starting about 30 days from discharge until it is discontinued as the Depo preparation of the Haldol should suffice for her. She was also on trazodone 150 mg at bedtime and 100 mg at bedtime p.r.n. insomnia. REVIEW OF SYSTEMS: Prior to discharge on 12/25/2017, no CV, , pulmonary, eye, ENT system symptoms on review. MENTAL STATUS EXAM: Oriented to herself. Insight, judgment, recent and remote memory, attention, concentration, fund of knowledge poor, consistent with her diagnosis mentioned in my initial note. IMPRESSION: Schizoaffective disorder, bipolar type, mixed with psychotic features; cognitive disorder, unspecified; anxiety disorder, unspecified; impulse control disorder, unspecified. Rest unchanged from admission. DISCHARGE MEDICATIONS: Please refer to the EMRAD. DISCHARGE INSTRUCTIONS: Outpatient psychiatric and medical followup at the snf. Time for discharge day management greater than 30 minutes. DOMENIC BRUNSON MD DR: LACEY/mamadou JOB#: [id number] / [id number]
--- NOTE | 2017-12-27 12:12 | PN ---
DATE: 12/24/2017 PSYCHIATRIC PROGRESS NOTE This late entry 12/24/2017 covers elements not covered in my initial note of 12/24/2017. SUBJECTIVE: Met with the patient in the evening. The patient slept 4-3/4 hours, refused meds in ice cream, refused breakfast and lunch. Oral Haldol will be tapered starting 01/04/2018 because she is on Haldol Decanoate 150 mg monthly. REVIEW OF SYSTEMS: No CV, , pulmonary, eye, ENT system symptoms on review. Reliability is poor. MENTAL STATUS EXAM: Oriented to herself. Insight, judgment, recent memory is impaired. Language function is intact. Mood and affect is labile. No clear suicidal or homicidal ideation, still somewhat paranoid. LABORATORY DATA: Reviewed. IMPRESSION: Unchanged from initial note. PLAN: As noted above. MAN Nixon BRUNSON MD DR: LACEY/mamadou JOB#: [id number] / [id number]
[2018-01-23] MEDS ORDERED: HALOPERIDOL DECANOATE IM ER 50 MG/ML VIAL. IM SCH (09:00)
== END 2017-12-25 12:33 | DRG 885 ==
LOC: UNDOADMIN 01:55 → GEROPSY 01:55
PROVIDERS: ADMIT Psychiatry & Neurology Psychiatry; ATTEND Psychiatry & Neurology Psychiatry
DX: F25.0 Schizoaffective disorder, bipolar type (principal); G30.9 Alzheimer's disease, unspecified; F02.81 Dementia in other diseases classified elsewhere, unspecified severity, with behavioral disturbance; E11.9 Type 2 diabetes mellitus without complications; F01.50 Vascular dementia, unspecified severity, without behavioral disturbance, psychotic disturbance, mood disturbance, and anxiety; M19.90 Unspecified osteoarthritis, unspecified site; E78.1 Pure hyperglyceridemia; I10 Essential (primary) hypertension; E78.5 Hyperlipidemia, unspecified; F09 Unspecified mental disorder due to known physiological condition; F41.9 Anxiety disorder, unspecified; F63.9 Impulse disorder, unspecified; G47.00 Insomnia, unspecified; H40.9 Unspecified glaucoma; Z91.14 Patient's other noncompliance with medication regimen; Z79.899 Other long term (current) drug therapy; Z88.1 Allergy status to other antibiotic agents; Z88.0 Allergy status to penicillin; Z91.83 Wandering in diseases classified elsewhere
CPT/HCPCS: 36415; 80053; 80061; 80164; 81001; 82306; 82607; 82947; 83036; 83540; 83550; 83735; 84436; 84443; 84480; 85025; 86593; 87086; J1630; J1631; J2060